=== PATIENT | female | born 1955 | race Caucasian/White ===

== ENCOUNTER 2017-11-30 23:50 | Inpatient (IN) | payer MEDICARE, OTHER ==
[~2017-11-30] VITALS: Ht 165.1 cm; Wt 77.0 kg
[~2017-11-30 23:50] MED LIST: ALBIPROI INH; ALBU90OI INH; AMIT25; AZIT500 PO; BENA20; BENA20 PO; BUDE6HFA INH; CELE200; ESCI10; ESTR2; ESTRADIOL PO; Estradiol1 MG PO; FURO20 PO; GABA400; GABA400 PO; HYDACE10B PO; HYDACE5; HYDACE5 PO; HYDCHL25; HYDGUAL120 PO; LEVFLO500 PO; METF500; METF500 PO; METH10; METH10 PO; METO50; METO50 PO; MIRT15 PO; MOXI400 PO; NIFE30ER PO; OMEP20ER; OXYACE5T PO; OXYC40ER; POTCHL20ER PO; PRED10 PO; PRED20 PO; PREG75; PROG100; PROG100 PO; PROM25 PO; Prednisone20 MG PO; Prilosec20 MG PO; RXOXYACE PO; RXSULTRIDS PO; SPIHYD; SULTRIDS PO; TIOT18 INH; TOBR.3OPSO OU; VENL75ER PO
[2017-12-01 00:22] LABS: BASOPHILS ABSOLUTE AUTO 0.05 K/mm3 (0.00-0.23); BASOPHILS PERCENT AUTO 1 % (0-2); EOSINOPHILS ABSOLUTE AUTO 0.22 K/mm3 (0.00-0.68); EOSINOPHILS PERCENT AUTO 2 % (0-6); Hematocrit 29.9 % (33.0-51.0); Hemoglobin 10.2 g/dL (11.5-16.0); IMMATURE GRAN ABSOLUTE AUTO 0.04 K/mm3 (0.00-0.10); IMMATURE GRAN PERCENT AUTO 0 % (0-1); LYMPHOCYTES ABSOLUTE AUTO 2.59 K/mm3 (0.84-5.20); LYMPHOCYTES PERCENT AUTO 24 % (21-46); MONOCYTES ABSOLUTE AUTO 0.82 K/mm3 (0.16-1.47); MONOCYTES PERCENT AUTO 8 % (4-13); Mean Corpuscular HGB 29.7 pg (26.0-34.0); Mean Corpuscular HGB Conc 34.1 g/dL (31.5-36.5); Mean Corpuscular Volume 87 fL (80-100); Mean Platelet Volume 8.6 fL (9.1-12.4); NEUTROPHILS ABSOLUTE AUTO 7.11 K/mm3 (1.96-9.15); NEUTROPHILS PERCENT AUTO 66 % (41-73); Platelet Count 448 K/mm3 (150-400); RDW Coefficient Variation 16.2 % (11.7-14.2); Red Blood Cell Count 3.44 M/mm3 (3.80-5.20); White Blood Cell Count 10.83 K/mm3 (4.00-11.30)
[2017-12-01] MEDS ORDERED: NIFE30ER PO (00:31)
[2017-12-01] MEDS ORDERED: Lyrica75 MG PO (00:32)
[2017-12-01 00:36] LABS: Alanine Aminotransfer (ALT/SGP 27 U/L (12-78); Albumin, Blood 2.7 g/dL (3.4-5.0); Albumin/Globulin Ratio 0.6 (0.8-1.8); Alk Phos 116 U/L (50-136); Anion Gap 9 mmol/L (6-16); Aspartate Aminotrans (AST/SGOT 40 U/L (12-37); Bilirubin, Total 0.3 mg/dL (0.1-1.0); Blood Urea Nitrogen 4 mg/dL (8-24); Bun/Creatinine Ratio 8.8 (12.0-20.0); CO2, Blood 25 mmol/L (21-32); Calcium, Blood 8.6 mg/dL (8.5-10.1); Chloride, Blood 98 mmol/L (98-108); Creatinine, Blood 0.45 mg/dL (0.40-1.00); Ethanol (Alcohol), Blood, Med <3 mg/dL; Globulin, Blood 4.5 g/dL (2.2-4.0); Glomerular Filtration Rate >60 (60-); Glucose, Blood 100 mg/dL (70-99); Sodium, Blood 132 mmol/L (136-145); Total Protein, Blood 7.2 g/dL (6.4-8.2); Troponin I <0.015 ng/mL (0.000-0.040)
[2017-12-01 03:21] LABS: Source, Urine Clean Catch
[2017-12-01 03:22] LABS: Bilirubin, Urine Neg (Neg); Blood, Urine Neg (Neg); Glucose Qualitative, Urine Neg (Neg); Ketones, Urine Neg (Neg); Leukocyte Esterase, Urine Neg (Neg); Nitrite, Urine Neg (Neg); Protein, Urine Neg (Neg); Urobilinogen, Urine NORM (Normal)
[2017-12-01 03:29] LABS: Appearance, Urine Clear (Clear); Color, Urine Yellow (P-Yellow)
[2017-12-01 06:14] LABS: PCO2 Arterial 43.5 mmHg (35-45); PO2 Arterial 61.4 mmHg (80-100); pH Blood Arterial 7.41 (7.35-7.45)
[2017-12-01 08:11] LABS: Influenza A Negative (NEGATIVE); Influenza B Negative (NEGATIVE)
[2017-12-01] MEDS ORDERED: LOTENSIN PO (16:56)
[2017-12-01] MEDS ORDERED: PREG75 PO (16:57)
[2017-12-01] MEDS ORDERED: COMBIVENT RESPIM4 GM INH (16:58)
[2017-12-01] MEDS ORDERED: BREO ELLIPTA 11 EACH INH (16:58)
[2017-12-01] MEDS ORDERED: ALBU90OI6 INH (16:58)
[2017-12-01] MEDS ORDERED: MAGNESIUM PO (16:59)
[2017-12-01] MEDS ORDERED: FERROUS SULFATE PO (16:59)
[2017-12-01] MEDS ORDERED: VITAMIN D32000 UNIT PO (17:00)
[2017-12-01 18:43] LABS: PCO2 Arterial 48.4 mmHg (35-45); PO2 Arterial 111 mmHg (80-100); pH Blood Arterial 7.36 (7.35-7.45)
[2017-12-02 05:24] LABS: BASOPHILS PERCENT AUTO 0 % (0-2); EOSINOPHILS PERCENT AUTO 0 % (0-6); Hematocrit 30.4 % (33.0-51.0); Hemoglobin 10.1 g/dL (11.5-16.0); IMMATURE GRAN ABSOLUTE AUTO 0.04 K/mm3 (0.00-0.10); IMMATURE GRAN PERCENT AUTO 0 % (0-1); LYMPHOCYTES ABSOLUTE AUTO 0.89 K/mm3 (0.84-5.20); LYMPHOCYTES PERCENT AUTO 9 % (21-46); MONOCYTES ABSOLUTE AUTO 0.36 K/mm3 (0.16-1.47); MONOCYTES PERCENT AUTO 3 % (4-13); Mean Corpuscular HGB 29.5 pg (26.0-34.0); Mean Corpuscular HGB Conc 33.2 g/dL (31.5-36.5); Mean Corpuscular Volume 89 fL (80-100); Mean Platelet Volume 9.2 fL (9.1-12.4); NEUTROPHILS ABSOLUTE AUTO 9.17 K/mm3 (1.96-9.15); NEUTROPHILS PERCENT AUTO 88 % (41-73); Platelet Count 443 K/mm3 (150-400); RDW Coefficient Variation 16.5 % (11.7-14.2); RDW Standard Deviation 53.7 fL (35.1-46.3); Red Blood Cell Count 3.42 M/mm3 (3.80-5.20); White Blood Cell Count 10.46 K/mm3 (4.00-11.30)
[2017-12-02 05:42] LABS: Alanine Aminotransfer (ALT/SGP 25 U/L (12-78); Albumin, Blood 2.7 g/dL (3.4-5.0); Albumin/Globulin Ratio 0.6 (0.8-1.8); Alk Phos 108 U/L (50-136); Anion Gap 5 mmol/L (6-16); Aspartate Aminotrans (AST/SGOT 30 U/L (12-37); Bilirubin, Total 0.3 mg/dL (0.1-1.0); Blood Urea Nitrogen 6 mg/dL (8-24); Bun/Creatinine Ratio 15.6 (12.0-20.0); CO2, Blood 28 mmol/L (21-32); Calcium, Blood 8.3 mg/dL (8.5-10.1); Chloride, Blood 101 mmol/L (98-108); Creatinine, Blood 0.39 mg/dL (0.40-1.00); Globulin, Blood 4.4 g/dL (2.2-4.0); Glomerular Filtration Rate >60 (60-); Glucose, Blood 151 mg/dL (70-99); Potassium, Blood 4.5 mmol/L (3.5-5.5); Sodium, Blood 134 mmol/L (136-145); Total Protein, Blood 7.1 g/dL (6.4-8.2)
[2017-12-02 11:40] LABS: U Amphetamine Screen Not Detected; U Barbituate Screen Not Detected; U Benzodiazapine Screen DETECTED; U Buprenorphine Screen Not Detected; U Cannabinoids Screen DETECTED; U Cocaine Screen Not Detected; U Methadone Screen Not Detected; U Methamphetamine Screen Not Detected; U Opiates Screen Not Detected; U Oxycodone Screen Not Detected; U Phencyclidine Screen Not Detected
[2017-12-02 11:58] LABS: U Propoxyphene Screen Not Detected
[2017-12-03 05:22] LABS: BASOPHILS PERCENT AUTO 0 % (0-2); EOSINOPHILS PERCENT AUTO 0 % (0-6); Hematocrit 32.5 % (33.0-51.0); Hemoglobin 10.7 g/dL (11.5-16.0); IMMATURE GRAN ABSOLUTE AUTO 0.03 K/mm3 (0.00-0.10); IMMATURE GRAN PERCENT AUTO 0 % (0-1); LYMPHOCYTES ABSOLUTE AUTO 0.67 K/mm3 (0.84-5.20); LYMPHOCYTES PERCENT AUTO 6 % (21-46); MONOCYTES ABSOLUTE AUTO 0.36 K/mm3 (0.16-1.47); MONOCYTES PERCENT AUTO 3 % (4-13); Mean Corpuscular HGB 29.5 pg (26.0-34.0); Mean Corpuscular HGB Conc 32.9 g/dL (31.5-36.5); Mean Corpuscular Volume 90 fL (80-100); Mean Platelet Volume 9.2 fL (9.1-12.4); NEUTROPHILS ABSOLUTE AUTO 10.75 K/mm3 (1.96-9.15); NEUTROPHILS PERCENT AUTO 91 % (41-73); Platelet Count 476 K/mm3 (150-400); RDW Coefficient Variation 16.6 % (11.7-14.2); RDW Standard Deviation 54.8 fL (35.1-46.3); Red Blood Cell Count 3.63 M/mm3 (3.80-5.20); White Blood Cell Count 11.81 K/mm3 (4.00-11.30)
[2017-12-03 05:44] LABS: Anion Gap 7 mmol/L (6-16); Blood Urea Nitrogen 7 mg/dL (8-24); Bun/Creatinine Ratio 19.4 (12.0-20.0); CO2, Blood 29 mmol/L (21-32); Calcium, Blood 9.1 mg/dL (8.5-10.1); Chloride, Blood 97 mmol/L (98-108); Creatinine, Blood 0.36 mg/dL (0.40-1.00); Glomerular Filtration Rate >60 (60-); Glucose, Blood 166 mg/dL (70-99); Sodium, Blood 133 mmol/L (136-145)
[2017-12-04 04:42] LABS: BASOPHILS ABSOLUTE AUTO 0.01 K/mm3 (0.00-0.23); BASOPHILS PERCENT AUTO 0 % (0-2); EOSINOPHILS ABSOLUTE AUTO 0.04 K/mm3 (0.00-0.68); EOSINOPHILS PERCENT AUTO 0 % (0-6); Hematocrit 32.5 % (33.0-51.0); Hemoglobin 10.9 g/dL (11.5-16.0); IMMATURE GRAN ABSOLUTE AUTO 0.07 K/mm3 (0.00-0.10); IMMATURE GRAN PERCENT AUTO 1 % (0-1); LYMPHOCYTES ABSOLUTE AUTO 2.82 K/mm3 (0.84-5.20); LYMPHOCYTES PERCENT AUTO 21 % (21-46); MONOCYTES ABSOLUTE AUTO 0.96 K/mm3 (0.16-1.47); MONOCYTES PERCENT AUTO 7 % (4-13); Mean Corpuscular HGB 29.6 pg (26.0-34.0); Mean Corpuscular HGB Conc 33.5 g/dL (31.5-36.5); Mean Corpuscular Volume 88 fL (80-100); NEUTROPHILS ABSOLUTE AUTO 9.54 K/mm3 (1.96-9.15); NEUTROPHILS PERCENT AUTO 71 % (41-73); Platelet Count 466 K/mm3 (150-400); RDW Coefficient Variation 16.6 % (11.7-14.2); RDW Standard Deviation 53.5 fL (35.1-46.3); Red Blood Cell Count 3.68 M/mm3 (3.80-5.20); White Blood Cell Count 13.44 K/mm3 (4.00-11.30)
[2017-12-04 04:54] LABS: PCO2 Arterial 47.5 mmHg (35-45); PO2 Arterial 90.9 mmHg (80-100); pH Blood Arterial 7.47 (7.35-7.45)
[2017-12-04 05:24] LABS: Anion Gap 6 mmol/L (6-16); Blood Urea Nitrogen 6 mg/dL (8-24); Bun/Creatinine Ratio 14.7 (12.0-20.0); CO2, Blood 31 mmol/L (21-32); Calcium, Blood 9.3 mg/dL (8.5-10.1); Chloride, Blood 97 mmol/L (98-108); Creatinine, Blood 0.41 mg/dL (0.40-1.00); Glomerular Filtration Rate >60 (60-); Glucose, Blood 106 mg/dL (70-99); Potassium, Blood 3.4 mmol/L (3.5-5.5); Sodium, Blood 134 mmol/L (136-145)
[2017-12-06] MEDS ORDERED: CEFU500T30 PO (12:56)
[2017-12-06] MEDS ORDERED: INSU100I6 SC (12:59)
[2017-12-06] MEDS ORDERED: PRED20 PO (13:00)
== END 2017-12-06 15:06 | DRG 884 ==
LOC: ER 23:50 → ERHOLD 12-01 06:44 → PCU 12-01 06:44 → MEDS 12-04 17:11 → PCU 12-04 17:18 → MEDS 12-05 16:14 → ENPENDDIS 12-06 10:00 → EDPENDDIS 12-06 10:00 → MEDS 12-06 15:06
PROVIDERS: Emergency Medicine; Internal Medicine
PROC: HZ2ZZZZ Detoxification Services for Substance Abuse Treatment (ICD-10-PCS; principal; 2017-12-01)
DX: F03.91 Unspecified dementia, unspecified severity, with behavioral disturbance (principal); J96.21 Acute and chronic respiratory failure with hypoxia; G92 Toxic encephalopathy; J96.22 Acute and chronic respiratory failure with hypercapnia; E87.1 Hypo-osmolality and hyponatremia; J44.1 Chronic obstructive pulmonary disease with (acute) exacerbation; F10.239 Alcohol dependence with withdrawal, unspecified; J44.0 Chronic obstructive pulmonary disease with (acute) lower respiratory infection; F05 Delirium due to known physiological condition; E11.40 Type 2 diabetes mellitus with diabetic neuropathy, unspecified; I27.20 Pulmonary hypertension, unspecified; E86.0 Dehydration; Z86.19 Personal history of other infectious and parasitic diseases; F17.210 Nicotine dependence, cigarettes, uncomplicated; Z79.4 Long term (current) use of insulin; E78.5 Hyperlipidemia, unspecified; B19.20 Unspecified viral hepatitis C without hepatic coma; J20.8 Acute bronchitis due to other specified organisms
CPT/HCPCS: 36415; 36600; 51798; 70450; 71046; 76705; 80048; 80053; 81003; 82140; 82803; 82947; 83605; 83690; 83880; 84145; 84484; 85025; 87070; 87077; 87205; 87804; 93005; 93010; 94640; 94760; 94762; 96374; 97162; 97530; 99285; G0480; G8978; G8979; J0697; J1650; J2060; J2405; J2930; J7030; P9612

== ENCOUNTER 2017-12-09 15:33 | Emergency (ER) | payer MEDICARE, OTHER ==
[~2017-12-09] VITALS: Ht 162.6 cm; Wt 77.1 kg
[~2017-12-09 15:33] MED LIST changes: +ALBU90OI6 INH; +BREO ELLIPTA 11 EACH INH; +CEFU500T30 PO; +COMBIVENT RESPIM4 GM INH; +FERROUS SULFATE PO; +INSU100I6 SC; +LOTENSIN PO; +Lyrica75 MG PO; +MAGNESIUM PO; +PREG75 PO; +VITAMIN D32000 UNIT PO
[2017-12-09 15:55] LABS: BASOPHILS ABSOLUTE AUTO 0.04 K/mm3 (0.00-0.23); BASOPHILS PERCENT AUTO 0 % (0-2); EOSINOPHILS ABSOLUTE AUTO 0.14 K/mm3 (0.00-0.68); EOSINOPHILS PERCENT AUTO 1 % (0-6); Hematocrit 33.8 % (33.0-51.0); Hemoglobin 11.2 g/dL (11.5-16.0); IMMATURE GRAN ABSOLUTE AUTO 0.09 K/mm3 (0.00-0.10); IMMATURE GRAN PERCENT AUTO 1 % (0-1); LYMPHOCYTES ABSOLUTE AUTO 1.64 K/mm3 (0.84-5.20); LYMPHOCYTES PERCENT AUTO 10 % (21-46); MONOCYTES ABSOLUTE AUTO 1.16 K/mm3 (0.16-1.47); MONOCYTES PERCENT AUTO 7 % (4-13); Mean Corpuscular HGB 30.1 pg (26.0-34.0); Mean Corpuscular HGB Conc 33.1 g/dL (31.5-36.5); Mean Platelet Volume 8.8 fL (9.1-12.4); NEUTROPHILS ABSOLUTE AUTO 13.51 K/mm3 (1.96-9.15); NEUTROPHILS PERCENT AUTO 82 % (41-73); Platelet Count 492 K/mm3 (150-400); RDW Coefficient Variation 17.1 % (11.7-14.2); RDW Standard Deviation 57.1 fL (35.1-46.3); Red Blood Cell Count 3.72 M/mm3 (3.80-5.20); White Blood Cell Count 16.58 K/mm3 (4.00-11.30)
[2017-12-09 15:58] LABS: Mean Corpuscular Volume 91 fL (80-100)
[2017-12-09 16:16] LABS: Alanine Aminotransfer (ALT/SGP 69 U/L (12-78); Albumin/Globulin Ratio 0.7 (0.8-1.8); Alk Phos 152 U/L (50-136); Anion Gap 7 mmol/L (6-16); Aspartate Aminotrans (AST/SGOT 76 U/L (12-37); Bilirubin, Total 0.5 mg/dL (0.1-1.0); Blood Urea Nitrogen 9 mg/dL (8-24); Bun/Creatinine Ratio 24.3 (12.0-20.0); CO2, Blood 29 mmol/L (21-32); Calcium, Blood 8.2 mg/dL (8.5-10.1); Chloride, Blood 102 mmol/L (98-108); Creatinine, Blood 0.37 mg/dL (0.40-1.00); Globulin, Blood 4.1 g/dL (2.2-4.0); Glomerular Filtration Rate >60 (60-); Glucose, Blood 109 mg/dL (70-99); Sodium, Blood 138 mmol/L (136-145); Total Protein, Blood 7.1 g/dL (6.4-8.2); Troponin I <0.015 ng/mL (0.000-0.040)
[2017-12-09 16:36] LABS: Ethanol (Alcohol), Blood, Med <3 mg/dL
[2017-12-09] MEDS ORDERED: Duoneb 2.5-0.5 M3 ML INH (17:35)
[2017-12-09] MEDS ORDERED: Albuterol2.5 MG/0.5 INH (17:35)
== END 2017-12-09 18:49 | disposition home or self-care (01) ==
LOC: ER 15:33
PROVIDERS: Physician Assistant
DX: R07.9 Chest pain, unspecified (principal); F03.90 Unspecified dementia, unspecified severity, without behavioral disturbance, psychotic disturbance, mood disturbance, and anxiety; E11.40 Type 2 diabetes mellitus with diabetic neuropathy, unspecified; E78.5 Hyperlipidemia, unspecified; J44.9 Chronic obstructive pulmonary disease, unspecified; I27.20 Pulmonary hypertension, unspecified; Z91.030 Bee allergy status; Z91.013 Allergy to seafood; Z88.1 Allergy status to other antibiotic agents; Z88.8 Allergy status to other drugs, medicaments and biological substances; Z79.899 Other long term (current) drug therapy; Z79.4 Long term (current) use of insulin; Z79.52 Long term (current) use of systemic steroids
CPT/HCPCS: 71046; 80053; 84484; 85025; 93005; 93010; 94640; 99284; G0480

== ENCOUNTER 2018-01-05 12:39 | Emergency (ER) | payer MEDICARE, OTHER ==
[~2018-01-05] VITALS: Ht 167.6 cm; Wt 61.7 kg
[~2018-01-05 12:39] MED LIST changes: +Albuterol2.5 MG/0.5 INH; +Duoneb 2.5-0.5 M3 ML INH
[2018-01-05 13:20] LABS: BASOPHILS ABSOLUTE AUTO 0.06 K/mm3 (0.00-0.23); BASOPHILS PERCENT AUTO 0 % (0-2); EOSINOPHILS ABSOLUTE AUTO 0.14 K/mm3 (0.00-0.68); EOSINOPHILS PERCENT AUTO 1 % (0-6); Hematocrit 34.6 % (33.0-51.0); Hemoglobin 11.3 g/dL (11.5-16.0); IMMATURE GRAN ABSOLUTE AUTO 0.07 K/mm3 (0.00-0.10); IMMATURE GRAN PERCENT AUTO 1 % (0-1); LYMPHOCYTES ABSOLUTE AUTO 1.79 K/mm3 (0.84-5.20); LYMPHOCYTES PERCENT AUTO 12 % (21-46); MONOCYTES ABSOLUTE AUTO 0.99 K/mm3 (0.16-1.47); MONOCYTES PERCENT AUTO 7 % (4-13); Mean Corpuscular HGB 30.1 pg (26.0-34.0); Mean Corpuscular HGB Conc 32.7 g/dL (31.5-36.5); Mean Corpuscular Volume 92 fL (80-100); Mean Platelet Volume 9.5 fL (9.1-12.4); NEUTROPHILS ABSOLUTE AUTO 11.48 K/mm3 (1.96-9.15); NEUTROPHILS PERCENT AUTO 79 % (41-73); Platelet Count 574 K/mm3 (150-400); RDW Coefficient Variation 14.3 % (11.7-14.2); RDW Standard Deviation 48.3 fL (35.1-46.3); Red Blood Cell Count 3.75 M/mm3 (3.80-5.20); White Blood Cell Count 14.53 K/mm3 (4.00-11.30)
[2018-01-05 13:36] LABS: Alanine Aminotransfer (ALT/SGP 57 U/L (12-78); Albumin, Blood 2.9 g/dL (3.4-5.0); Albumin/Globulin Ratio 0.6 (0.8-1.8); Alk Phos 228 U/L (50-136); Anion Gap 10 mmol/L (6-16); Aspartate Aminotrans (AST/SGOT 64 U/L (12-37); Bilirubin, Total 0.3 mg/dL (0.1-1.0); Blood Urea Nitrogen 10 mg/dL (8-24); Bun/Creatinine Ratio 24.2 (12.0-20.0); CO2, Blood 26 mmol/L (21-32); Calcium, Blood 9.1 mg/dL (8.5-10.1); Chloride, Blood 96 mmol/L (98-108); Creatinine, Blood 0.41 mg/dL (0.40-1.00); Globulin, Blood 4.9 g/dL (2.2-4.0); Glomerular Filtration Rate >60 (60-); Glucose, Blood 91 mg/dL (70-99); Sodium, Blood 132 mmol/L (136-145); Total Protein, Blood 7.8 g/dL (6.4-8.2); Troponin I <0.015 ng/mL (0.000-0.040)
[2018-01-05] MEDS ORDERED: ACET325 PO (13:43)
[2018-01-05] MEDS ORDERED: POTCHL20ER PO (13:45)
[2018-01-05] MEDS ORDERED: FOLI1 PO (13:46)
[2018-01-05] MEDS ORDERED: Hair, Skin & N1 EACH PO (13:47)
[2018-01-05] MEDS ORDERED: Vitamin B Comple1 EA PO (13:47)
[2018-01-05] MEDS ORDERED: MAGCHL64ER PO (13:47)
[2018-01-05 14:35] LABS: Source, Urine Voided
[2018-01-05 14:51] LABS: Appearance, Urine Clear (Clear); Bilirubin, Urine Neg (Neg); Blood, Urine Neg (Neg); Color, Urine Yellow (P-Yellow); Glucose Qualitative, Urine Neg (Neg); Ketones, Urine Neg (Neg); Leukocyte Esterase, Urine 2+ (Neg); Nitrite, Urine Neg (Neg); Protein, Urine Neg (Neg); Urobilinogen, Urine NORM (Normal)
[2018-01-05 15:00] LABS: Amorphous Light (0-Heavy); Bacteria Mod /hpf; Red Blood Cells, Urine Not Seen /hpf (0-2); Squamous Epithelial Cells Few /hpf (Few)
[2018-01-05] MEDS ORDERED: CEPH500 PO (15:27)
[2018-01-05] MEDS ORDERED: Zofran Odt4 MG PO (15:27)
== END 2018-01-05 16:40 | disposition home or self-care (01) ==
LOC: ER 12:39
PROVIDERS: Emergency Medicine
DX: K52.9 Noninfective gastroenteritis and colitis, unspecified (principal); N30.90 Cystitis, unspecified without hematuria; E11.9 Type 2 diabetes mellitus without complications; I10 Essential (primary) hypertension; K21.9 Gastro-esophageal reflux disease without esophagitis; M54.9 Dorsalgia, unspecified; G89.29 Other chronic pain; J44.9 Chronic obstructive pulmonary disease, unspecified; Z88.1 Allergy status to other antibiotic agents; Z91.030 Bee allergy status; Z79.4 Long term (current) use of insulin; Z79.899 Other long term (current) drug therapy
CPT/HCPCS: 36415; 74177; 80053; 81001; 83605; 83690; 84484; 85025; 87077; 87086; 87186; 93005; 93010; 96361; 96374; 96375; 99284; J0696; J2270; J2405; J7030; P9612; Q9967

== ENCOUNTER 2018-01-08 19:30 | Emergency (ER) | payer MEDICARE, OTHER ==
[~2018-01-08] VITALS: Ht 167.6 cm; Wt 74.8 kg
[~2018-01-08 19:30] MED LIST changes: +ACET325 PO; +CEPH500 PO; +FOLI1 PO; +Hair, Skin & N1 EACH PO; +MAGCHL64ER PO; +Vitamin B Comple1 EA PO; +Zofran Odt4 MG PO
[2018-01-08 19:56] LABS: BASOPHILS ABSOLUTE AUTO 0.06 K/mm3 (0.00-0.23); BASOPHILS PERCENT AUTO 0 % (0-2); EOSINOPHILS ABSOLUTE AUTO 0.25 K/mm3 (0.00-0.68); EOSINOPHILS PERCENT AUTO 2 % (0-6); Hematocrit 35.3 % (33.0-51.0); Hemoglobin 11.7 g/dL (11.5-16.0); IMMATURE GRAN ABSOLUTE AUTO 0.07 K/mm3 (0.00-0.10); IMMATURE GRAN PERCENT AUTO 1 % (0-1); LYMPHOCYTES ABSOLUTE AUTO 2.12 K/mm3 (0.84-5.20); LYMPHOCYTES PERCENT AUTO 14 % (21-46); MONOCYTES ABSOLUTE AUTO 1.06 K/mm3 (0.16-1.47); MONOCYTES PERCENT AUTO 7 % (4-13); Mean Corpuscular HGB 30.2 pg (26.0-34.0); Mean Corpuscular HGB Conc 33.1 g/dL (31.5-36.5); Mean Corpuscular Volume 91 fL (80-100); Mean Platelet Volume 9.1 fL (9.1-12.4); NEUTROPHILS ABSOLUTE AUTO 11.61 K/mm3 (1.96-9.15); NEUTROPHILS PERCENT AUTO 77 % (41-73); Platelet Count 707 K/mm3 (150-400); RDW Coefficient Variation 14.6 % (11.7-14.2); Red Blood Cell Count 3.87 M/mm3 (3.80-5.20); White Blood Cell Count 15.17 K/mm3 (4.00-11.30)
[2018-01-08 20:17] LABS: Alanine Aminotransfer (ALT/SGP 52 U/L (12-78); Albumin, Blood 2.9 g/dL (3.4-5.0); Albumin/Globulin Ratio 0.6 (0.8-1.8); Alk Phos 214 U/L (50-136); Anion Gap 7 mmol/L (6-16); Aspartate Aminotrans (AST/SGOT 56 U/L (12-37); Bilirubin, Total 0.4 mg/dL (0.1-1.0); Blood Urea Nitrogen 9 mg/dL (8-24); Bun/Creatinine Ratio 22.3 (12.0-20.0); CO2, Blood 28 mmol/L (21-32); Calcium, Blood 9.2 mg/dL (8.5-10.1); Chloride, Blood 99 mmol/L (98-108); Globulin, Blood 4.9 g/dL (2.2-4.0); Glomerular Filtration Rate >60 (60-); Glucose, Blood 106 mg/dL (70-99); Potassium, Blood 3.8 mmol/L (3.5-5.5); Sodium, Blood 134 mmol/L (136-145); Total Protein, Blood 7.8 g/dL (6.4-8.2)
[2018-01-08 20:50] LABS: Source, Urine Catheter
[2018-01-08 20:54] LABS: Bilirubin, Urine Neg (Neg); Blood, Urine Neg (Neg); Glucose Qualitative, Urine Neg (Neg); Ketones, Urine Neg (Neg); Leukocyte Esterase, Urine 2+ (Neg); Nitrite, Urine Neg (Neg); Protein, Urine Neg (Neg); Urobilinogen, Urine NORM (Normal)
[2018-01-08 20:59] LABS: Appearance, Urine Clear (Clear); Color, Urine Yellow (P-Yellow)
[2018-01-08] MEDS ORDERED: BREO ELLIPTA 11 EACH INH (20:59)
[2018-01-08] MEDS ORDERED: MAGCHL64ER PO (21:00)
[2018-01-08] MEDS ORDERED: MAGOXI400 PO (21:00)
[2018-01-08 21:01] LABS: Bacteria Rare /hpf; Red Blood Cells, Urine Not Seen /hpf (0-2); Squamous Epithelial Cells Few /hpf (Few)
[2018-01-08] MEDS ORDERED: CIPR500 PO (21:01)
[2018-01-08] MEDS ORDERED: CEPH500 PO (22:00)
== END 2018-01-08 22:35 | disposition home or self-care (01) ==
LOC: ER 19:30
PROVIDERS: Emergency Medicine
DX: R10.13 Epigastric pain (principal); N39.0 Urinary tract infection, site not specified; K21.9 Gastro-esophageal reflux disease without esophagitis; F03.90 Unspecified dementia, unspecified severity, without behavioral disturbance, psychotic disturbance, mood disturbance, and anxiety; J44.9 Chronic obstructive pulmonary disease, unspecified; F17.210 Nicotine dependence, cigarettes, uncomplicated; I10 Essential (primary) hypertension; E11.9 Type 2 diabetes mellitus without complications; Z79.4 Long term (current) use of insulin; Z79.899 Other long term (current) drug therapy; Z91.013 Allergy to seafood; Z88.8 Allergy status to other drugs, medicaments and biological substances; Z91.030 Bee allergy status; Z88.1 Allergy status to other antibiotic agents; Z79.2 Long term (current) use of antibiotics
CPT/HCPCS: 74177; 80053; 81001; 83690; 85025; 87086; 93005; 93010; 96361; 96365; 96375; 99284; J0696; J2270; J7030; Q9967

== ENCOUNTER → 2018-01-25 | Outpatient (CLI) | payer MEDICARE, OTHER ==
[~2018-01-25] MED LIST changes: +CIPR500 PO; +MAGOXI400 PO
[2018-01-25 07:20] LABS: Source, Urine Catheter
[2018-01-25 08:48] LABS: Bilirubin, Urine Neg (Neg); Blood, Urine Neg (Neg); Glucose Qualitative, Urine Neg (Neg); Ketones, Urine Neg (Neg); Leukocyte Esterase, Urine 1+ (Neg); Nitrite, Urine Neg (Neg); Protein, Urine Neg (Neg); Urobilinogen, Urine NORM (Normal)
[2018-01-25 08:50] LABS: Appearance, Urine Hazy (Clear); Color, Urine Yellow (P-Yellow)
[2018-01-25 08:57] LABS: Bacteria Rare /hpf; Red Blood Cells, Urine Not Seen /hpf (0-2); Squamous Epithelial Cells Rare /hpf (Few); White Blood Cells, Urine 0-2 /hpf (0-5)
== END ==
LOC: LAB RH 07:19 → EDSTATUS 15:25
PROVIDERS: Physician Assistant
DX: Z79.01 Long term (current) use of anticoagulants (principal); Z51.81 Encounter for therapeutic drug level monitoring
CPT/HCPCS: 81001; 87086

== ENCOUNTER 2018-01-27 17:54 | Emergency (ER) | payer MEDICARE, OTHER ==
[~2018-01-27] VITALS: Ht 167.6 cm; Wt 59.0 kg
[2018-01-27 18:25] LABS: Source, Urine Catheter
[2018-01-27 18:26] LABS: BASOPHILS ABSOLUTE AUTO 0.06 K/mm3 (0.00-0.23); BASOPHILS PERCENT AUTO 1 % (0-2); EOSINOPHILS ABSOLUTE AUTO 0.42 K/mm3 (0.00-0.68); EOSINOPHILS PERCENT AUTO 4 % (0-6); Hematocrit 31.2 % (33.0-51.0); Hemoglobin 10.2 g/dL (11.5-16.0); IMMATURE GRAN ABSOLUTE AUTO 0.05 K/mm3 (0.00-0.10); IMMATURE GRAN PERCENT AUTO 1 % (0-1); LYMPHOCYTES ABSOLUTE AUTO 2.13 K/mm3 (0.84-5.20); LYMPHOCYTES PERCENT AUTO 21 % (21-46); MONOCYTES PERCENT AUTO 9 % (4-13); Mean Corpuscular HGB 30.7 pg (26.0-34.0); Mean Corpuscular HGB Conc 32.7 g/dL (31.5-36.5); Mean Corpuscular Volume 94 fL (80-100); Mean Platelet Volume 9.4 fL (9.1-12.4); NEUTROPHILS ABSOLUTE AUTO 6.75 K/mm3 (1.96-9.15); NEUTROPHILS PERCENT AUTO 65 % (41-73); Platelet Count 642 K/mm3 (150-400); RDW Standard Deviation 51.7 fL (35.1-46.3); Red Blood Cell Count 3.32 M/mm3 (3.80-5.20); White Blood Cell Count 10.31 K/mm3 (4.00-11.30)
[2018-01-27 18:36] LABS: Appearance, Urine Clear (Clear); Bilirubin, Urine Neg (Neg); Blood, Urine 1+ (Neg); Color, Urine Yellow (P-Yellow); Glucose Qualitative, Urine Neg (Neg); Ketones, Urine Neg (Neg); Leukocyte Esterase, Urine 1+ (Neg); Nitrite, Urine Neg (Neg); Protein, Urine Neg (Neg); Urobilinogen, Urine NORM (Normal); pH, Urine 6.5 (5.0-8.0)
[2018-01-27 18:43] LABS: Bacteria Few /hpf; Red Blood Cells, Urine 0-2 /hpf (0-2); Squamous Epithelial Cells Few /hpf (Few)
[2018-01-27 18:44] LABS: Alanine Aminotransfer (ALT/SGP 31 U/L (12-78); Albumin, Blood 3.2 g/dL (3.4-5.0); Albumin/Globulin Ratio 0.7 (0.8-1.8); Alk Phos 158 U/L (50-136); Anion Gap 9 mmol/L (6-16); Aspartate Aminotrans (AST/SGOT 46 U/L (12-37); Bilirubin, Total 0.3 mg/dL (0.1-1.0); Blood Urea Nitrogen 13 mg/dL (8-24); Bun/Creatinine Ratio 22.6 (12.0-20.0); CO2, Blood 25 mmol/L (21-32); Calcium, Blood 9.5 mg/dL (8.5-10.1); Chloride, Blood 101 mmol/L (98-108); Creatinine, Blood 0.57 mg/dL (0.40-1.00); Globulin, Blood 4.9 g/dL (2.2-4.0); Glomerular Filtration Rate >60 (60-); Glucose, Blood 96 mg/dL (70-99); Potassium, Blood 4.1 mmol/L (3.5-5.5); Sodium, Blood 135 mmol/L (136-145); Total Protein, Blood 8.1 g/dL (6.4-8.2)
== END 2018-01-27 19:31 | disposition home or self-care (01) ==
LOC: ER 17:54
PROVIDERS: Emergency Medicine
DX: S60.221A Contusion of right hand, initial encounter (principal); F03.90 Unspecified dementia, unspecified severity, without behavioral disturbance, psychotic disturbance, mood disturbance, and anxiety; E11.40 Type 2 diabetes mellitus with diabetic neuropathy, unspecified; E78.5 Hyperlipidemia, unspecified; J44.9 Chronic obstructive pulmonary disease, unspecified; F17.210 Nicotine dependence, cigarettes, uncomplicated; W19.XXXA Unspecified fall, initial encounter; Z79.899 Other long term (current) drug therapy
CPT/HCPCS: 36415; 70450; 71046; 73130; 80053; 81001; 82140; 85025; 87086; 99284; P9612

== ENCOUNTER 2018-01-31 14:34 | Emergency (ER) | payer MEDICARE, OTHER ==
[~2018-01-31] VITALS: Ht 167.6 cm; Wt 72.6 kg
[2018-01-31 15:15] LABS: Source, Urine Catheter
[2018-01-31 15:18] LABS: BASOPHILS ABSOLUTE AUTO 0.07 K/mm3 (0.00-0.23); BASOPHILS PERCENT AUTO 1 % (0-2); EOSINOPHILS ABSOLUTE AUTO 0.58 K/mm3 (0.00-0.68); EOSINOPHILS PERCENT AUTO 6 % (0-6); Hematocrit 32.9 % (33.0-51.0); Hemoglobin 10.3 g/dL (11.5-16.0); IMMATURE GRAN ABSOLUTE AUTO 0.03 K/mm3 (0.00-0.10); IMMATURE GRAN PERCENT AUTO 0 % (0-1); LYMPHOCYTES ABSOLUTE AUTO 2.09 K/mm3 (0.84-5.20); LYMPHOCYTES PERCENT AUTO 20 % (21-46); MONOCYTES ABSOLUTE AUTO 0.82 K/mm3 (0.16-1.47); MONOCYTES PERCENT AUTO 8 % (4-13); Mean Corpuscular HGB 30.1 pg (26.0-34.0); Mean Corpuscular HGB Conc 31.3 g/dL (31.5-36.5); Mean Corpuscular Volume 96 fL (80-100); Mean Platelet Volume 9.9 fL (9.1-12.4); NEUTROPHILS ABSOLUTE AUTO 6.85 K/mm3 (1.96-9.15); NEUTROPHILS PERCENT AUTO 66 % (41-73); Platelet Count 606 K/mm3 (150-400); RDW Coefficient Variation 14.8 % (11.7-14.2); RDW Standard Deviation 51.7 fL (35.1-46.3); Red Blood Cell Count 3.42 M/mm3 (3.80-5.20); White Blood Cell Count 10.44 K/mm3 (4.00-11.30)
[2018-01-31 15:18] LABS: Blood, Urine 1+ (Neg); Glucose Qualitative, Urine Neg (Neg); Ketones, Urine Neg (Neg); Leukocyte Esterase, Urine 3+ (Neg); Nitrite, Urine Neg (Neg); Protein, Urine 1+ (Neg); Specific Gravity, Urine 1.015 (1.003-1.022); Urobilinogen, Urine 1+ (Normal)
[2018-01-31 15:34] LABS: Alanine Aminotransfer (ALT/SGP 30 U/L (12-78); Albumin, Blood 3.3 g/dL (3.4-5.0); Albumin/Globulin Ratio 0.7 (0.8-1.8); Alk Phos 149 U/L (50-136); Anion Gap 7 mmol/L (6-16); Aspartate Aminotrans (AST/SGOT 37 U/L (12-37); Bilirubin, Total 0.2 mg/dL (0.1-1.0); Blood Urea Nitrogen 15 mg/dL (8-24); Bun/Creatinine Ratio 25.6 (12.0-20.0); CO2, Blood 25 mmol/L (21-32); Calcium, Blood 9.3 mg/dL (8.5-10.1); Chloride, Blood 105 mmol/L (98-108); Creatinine, Blood 0.59 mg/dL (0.40-1.00); Globulin, Blood 4.8 g/dL (2.2-4.0); Glomerular Filtration Rate >60 (60-); Glucose, Blood 98 mg/dL (70-99); Potassium, Blood 4.6 mmol/L (3.5-5.5); Sodium, Blood 137 mmol/L (136-145); Total Protein, Blood 8.1 g/dL (6.4-8.2)
[2018-01-31 15:39] LABS: Bilirubin, Urine 1+ (Neg)
[2018-01-31 15:48] LABS: Appearance, Urine Clear (Clear); Color, Urine Yellow (P-Yellow)
[2018-01-31 15:49] LABS: Bacteria Few /hpf; Squamous Epithelial Cells Few /hpf (Few); White Blood Cells, Urine 25-50 /hpf (0-5)
[2018-01-31] MEDS ORDERED: CEPH500 PO (16:22)
== END 2018-01-31 17:31 | disposition home or self-care (01) ==
LOC: ER 14:34
PROVIDERS: Physician Assistant
DX: N39.0 Urinary tract infection, site not specified (principal); F03.90 Unspecified dementia, unspecified severity, without behavioral disturbance, psychotic disturbance, mood disturbance, and anxiety; E11.9 Type 2 diabetes mellitus without complications; E78.5 Hyperlipidemia, unspecified; J44.9 Chronic obstructive pulmonary disease, unspecified; I27.20 Pulmonary hypertension, unspecified; F17.210 Nicotine dependence, cigarettes, uncomplicated; N17.9 Acute kidney failure, unspecified; Z91.030 Bee allergy status; Z91.013 Allergy to seafood; Z88.1 Allergy status to other antibiotic agents; Z88.8 Allergy status to other drugs, medicaments and biological substances; Z79.899 Other long term (current) drug therapy; Z79.2 Long term (current) use of antibiotics; Z98.890 Other specified postprocedural states
CPT/HCPCS: 36415; 80053; 81001; 85025; 87077; 87086; 87186; 93005; 93010; 96374; 99283; J0696; P9612

== ENCOUNTER → 2018-07-01 | Outpatient (CLI) | payer MEDICARE, OTHER ==
[2018-07-01 19:13] LABS: Source, Urine Clean Catch
[2018-07-01 19:31] LABS: Appearance, Urine Clear (Clear); Bilirubin, Urine Neg (Neg); Blood, Urine Neg (Neg); Color, Urine Yellow (P-Yellow); Glucose Qualitative, Urine Neg (Neg); Ketones, Urine Neg (Neg); Leukocyte Esterase, Urine Neg (Neg); Nitrite, Urine Neg (Neg); Protein, Urine Neg (Neg); Urobilinogen, Urine NORM (Normal)
[2018-07-01 19:43] LABS: Specific Gravity, Urine 1.005 (1.003-1.022)
== END | disposition home or self-care (01) ==
LOC: LAB 16:15 → LAB SHORT 16:15
PROVIDERS: Physician Assistant
DX: N39.0 Urinary tract infection, site not specified (principal)
CPT/HCPCS: 81003

== ENCOUNTER → 2018-10-31 | Outpatient (CLI) | payer MEDICARE, OTHER ==
[2018-10-31 19:11] LABS: Source, Urine Clean Catch
[2018-10-31 19:18] LABS: Bilirubin, Urine Neg (Neg); Blood, Urine Neg (Neg); Glucose Qualitative, Urine 4+ (Neg); Ketones, Urine Neg (Neg); Leukocyte Esterase, Urine 1+ (Neg); Nitrite, Urine Neg (Neg); Protein, Urine Neg (Neg); Urobilinogen, Urine NORM (Normal)
[2018-10-31 19:26] LABS: Appearance, Urine Hazy (Clear); Color, Urine Yellow (P-Yellow)
[2018-10-31 19:27] LABS: Bacteria Many /hpf; Red Blood Cells, Urine Not Seen /hpf (0-2); Squamous Epithelial Cells Mod /hpf (Few)
== END ==
LOC: LAB SHORT 14:30 → LAB 14:30
PROVIDERS: Nurse Practitioner Family
DX: N39.0 Urinary tract infection, site not specified (principal)
CPT/HCPCS: 81001; 87086

== ENCOUNTER → 2018-11-04 | Outpatient (CLI) | payer MEDICARE, OTHER ==
[2018-11-04 19:25] LABS: Source, Urine Clean Catch
[2018-11-04 19:38] LABS: Bilirubin, Urine Neg (Neg); Blood, Urine Neg (Neg); Glucose Qualitative, Urine 4+ (Neg); Ketones, Urine Neg (Neg); Leukocyte Esterase, Urine 2+ (Neg); Nitrite, Urine Neg (Neg); Protein, Urine Neg (Neg); Specific Gravity, Urine 1.005 (1.003-1.022); Urobilinogen, Urine NORM (Normal)
[2018-11-04 19:46] LABS: Appearance, Urine Hazy (Clear); Color, Urine Yellow (P-Yellow)
[2018-11-04 19:48] LABS: Bacteria Few /hpf; Red Blood Cells, Urine Not Seen /hpf (0-2); Squamous Epithelial Cells Few /hpf (Few)
== END ==
LOC: LAB SHORT 15:00 → LAB 15:00
PROVIDERS: Nurse Practitioner Family
DX: N39.0 Urinary tract infection, site not specified (principal)
CPT/HCPCS: 81001; 87086

== ENCOUNTER → 2019-07-22 | Outpatient (CLI) | payer MEDICARE, OTHER ==
[~2019-07-22] MED LIST changes: +ALBU3IS INH; +ASCO500 PO; +BASAGLAR K100 UNIT/1 SC; +BISA10S PR; +DOCU100 PO; +FERSU300 PO; +HIGH POTENCY P1 EACH PO; +HUMALOG KW200 UNIT/1 SC; +LIDO700A20 TOP; +LOSA25 PO; +MELATONIN5 M1 PO; +NIFE60ER PO; +ONDA8 MM; +PREG150 PO; +Pedi-Dri 100,0060 GM TOP; +QUET100 PO; +Seroquel Xr50 MG PO; +TRAM50 PO; +TRAZ50 PO; +VANCOCIN HCL125 MG PO
[2019-07-23 16:25] LABS: Source, Urine Clean Catch
[2019-07-23 17:27] LABS: Bilirubin, Urine Neg (Neg); Blood, Urine Neg (Neg); Glucose Qualitative, Urine Neg (Neg); Ketones, Urine Neg (Neg); Leukocyte Esterase, Urine Neg (Neg); Nitrite, Urine Neg (Neg); Protein, Urine 2+ (Neg); Specific Gravity, Urine 1.015 (1.003-1.022); Urobilinogen, Urine NORM (Normal)
[2019-07-23 17:28] LABS: Appearance, Urine Clear (Clear); Color, Urine Yellow (P-Yellow)
[2019-07-23 17:29] LABS: Bacteria Few /hpf; Red Blood Cells, Urine Not Seen /hpf (0-2); Squamous Epithelial Cells Rare /hpf (Few); White Blood Cells, Urine 0-2 /hpf (0-5)
[2019-07-23 17:30] LABS: Mucus Light (0-Heavy)
== END | disposition home or self-care (01) ==
LOC: LAB 11:50 → LAB SHORT 11:50
PROVIDERS: Family Medicine
DX: R10.9 Unspecified abdominal pain (principal)
CPT/HCPCS: 81001

== ENCOUNTER → 2019-08-11 | Outpatient (CLI) | payer MEDICARE, OTHER ==
[2019-08-11 17:21] LABS: Source, Urine Clean Catch
[2019-08-11 17:50] LABS: Bilirubin, Urine Neg (Neg); Blood, Urine Neg (Neg); Glucose Qualitative, Urine Neg (Neg); Ketones, Urine Neg (Neg); Leukocyte Esterase, Urine Neg (Neg); Nitrite, Urine Neg (Neg); Protein, Urine 1+ (Neg); Specific Gravity, Urine 1.015 (1.003-1.022); Urobilinogen, Urine NORM (Normal)
[2019-08-11 17:57] LABS: Appearance, Urine Clear (Clear); Color, Urine Yellow (P-Yellow)
== END | disposition home or self-care (01) ==
LOC: LAB SHORT 13:00 → LAB 13:00
PROVIDERS: Family Medicine
DX: N39.0 Urinary tract infection, site not specified (principal); R10.9 Unspecified abdominal pain
CPT/HCPCS: 81003

== ENCOUNTER 2020-03-19 11:38 | Inpatient (IN) | payer MEDICARE, OTHER ==
[~2020-03-19] VITALS: Ht 170.2 cm; Wt 75.5 kg
[2020-03-19 11:53] LABS: Base Excess Venous 2.4 mmol/L; Bicarbonate Venous 24.2 mmol/L (24.0-30.0); PO2 Venous 70.3 mmHg (38-42)
[2020-03-19 11:55] LABS: pH Blood Venous 7.19 (7.34-7.37)
[2020-03-19] MEDS ORDERED: BREO ELLIPTA 11 EACH INH (12:06)
[2020-03-19] MEDS ORDERED: Acetaminophen-1 EAC1 PO (12:06)
[2020-03-19] MEDS ORDERED: COMBIVENT RESPIM4 GM INH (12:07)
[2020-03-19] MEDS ORDERED: CYCLOBENZAPRINE5 MG PO (12:07)
[2020-03-19] MEDS ORDERED: Voltaren100 GM TOP (12:08)
[2020-03-19] MEDS ORDERED: DOCU100 PO (12:08)
[2020-03-19] MEDS ORDERED: FOLI1 PO (12:08)
[2020-03-19] MEDS ORDERED: BASAGLAR K100 UNIT/1 SC (12:08)
[2020-03-19] MEDS ORDERED: FERSU300 PO (12:08)
[2020-03-19] MEDS ORDERED: LOSA25 PO (12:09)
[2020-03-19] MEDS ORDERED: METO50ER PO (12:09)
[2020-03-19] MEDS ORDERED: TRAM50 PO (12:10)
[2020-03-19] MEDS ORDERED: SPIR25 PO (12:10)
[2020-03-19] MEDS ORDERED: PREG150 PO (12:10)
[2020-03-19] MEDS ORDERED: QUET100 PO (12:10)
[2020-03-19] MEDS ORDERED: Daily Multiple1 EACH PO (12:10)
[2020-03-19] MEDS ORDERED: Vitamin D2000 UNIT PO (12:11)
[2020-03-19] MEDS ORDERED: ASCO500 PO (12:11)
[2020-03-19] MEDS ORDERED: VENL75ER PO (12:11)
[2020-03-19 12:12] LABS: BASOPHILS ABSOLUTE AUTO 0.11 K/mm3 (0.00-0.23); BASOPHILS PERCENT AUTO 0 % (0-2); EOSINOPHILS ABSOLUTE AUTO 0.01 K/mm3 (0.00-0.68); EOSINOPHILS PERCENT AUTO 0 % (0-6); Hematocrit 46.9 % (33.0-51.0); Hemoglobin 14.1 g/dL (11.5-16.0); IMMATURE GRAN ABSOLUTE AUTO 0.18 K/mm3 (0.00-0.10); IMMATURE GRAN PERCENT AUTO 1 % (0-1); LYMPHOCYTES ABSOLUTE AUTO 1.19 K/mm3 (0.84-5.20); LYMPHOCYTES PERCENT AUTO 5 % (21-46); MONOCYTES ABSOLUTE AUTO 2.29 K/mm3 (0.16-1.47); MONOCYTES PERCENT AUTO 9 % (4-13); Mean Corpuscular HGB 31.3 pg (26.0-34.0); Mean Corpuscular HGB Conc 30.1 g/dL (31.5-36.5); Mean Corpuscular Volume 104 fL (80-100); Mean Platelet Volume 9.9 fL (9.1-12.4); NEUTROPHILS ABSOLUTE AUTO 22.37 K/mm3 (1.96-9.15); NEUTROPHILS PERCENT AUTO 86 % (41-73); Platelet Count 294 K/mm3 (150-400); RDW Coefficient Variation 12.3 % (11.7-14.2); RDW Standard Deviation 47.6 fL (35.1-46.3); White Blood Cell Count 26.15 K/mm3 (4.00-11.30)
[2020-03-19 12:33] LABS: Base Excess Venous 3.8 mmol/L; Bicarbonate Venous 24.6 mmol/L (24.0-30.0); PCO2 Venous 94.3 mmHg (38-42); PO2 Venous 47.2 mmHg (38-42); pH Blood Venous 7.15 (7.34-7.37)
[2020-03-19 12:40] LABS: Troponin I <0.015 ng/mL (0.000-0.040)
[2020-03-19 12:46] LABS: Alanine Aminotransfer (ALT/SGP 36 U/L (12-78); Albumin, Blood 3.2 g/dL (3.4-5.0); Albumin/Globulin Ratio 0.6 (0.8-1.8); Alk Phos 109 U/L (50-136); Anion Gap 4 mmol/L (6-16); Aspartate Aminotrans (AST/SGOT 43 U/L (12-37); Bilirubin, Total 0.3 mg/dL (0.1-1.0); Blood Urea Nitrogen 21 mg/dL (8-24); Bun/Creatinine Ratio 12.1 (12.0-20.0); CO2, Blood 31 mmol/L (21-32); Calcium, Blood 8.8 mg/dL (8.5-10.1); Chloride, Blood 98 mmol/L (98-108); Creatinine, Blood 1.74 mg/dL (0.40-1.00); Globulin, Blood 5.7 g/dL (2.2-4.0); Glomerular Filtration Rate 31 (60-); Glucose, Blood 269 mg/dL (70-99); Potassium, Blood 6.1 mmol/L (3.5-5.5); Sodium, Blood 133 mmol/L (136-145); Total Protein, Blood 8.9 g/dL (6.4-8.2)
[2020-03-19 12:59] LABS: Source, Urine Catheter
[2020-03-19 13:04] LABS: Bilirubin, Urine Neg (Neg); Blood, Urine 2+ (Neg); Glucose Qualitative, Urine 3+ (Neg); Ketones, Urine Neg (Neg); Leukocyte Esterase, Urine Neg (Neg); Nitrite, Urine Neg (Neg); Protein, Urine 3+ (Neg); Urobilinogen, Urine NORM (Normal)
[2020-03-19 13:10] LABS: Appearance, Urine Clear (Clear); Color, Urine Yellow (P-Yellow)
[2020-03-19 13:13] LABS: Amorphous Light (0-Heavy); Bacteria Not Seen /hpf; Red Blood Cells, Urine 0-2 /hpf (0-2); Squamous Epithelial Cells Not Seen /hpf (Few); Transitional Epithelial Cells Few /hpf (0-Rare); White Blood Cells, Urine Not Seen /hpf (0-5)
[2020-03-19 13:20] LABS: Calcium Oxalate Crystals Rare /hpf; Granular Casts 0-2 /lpf (0)
[2020-03-19 14:12] LABS: PO2 Arterial 64.8 mmHg (80-100)
[2020-03-19 14:13] LABS: PCO2 Arterial 77.2 mmHg (35-45)
[2020-03-19 14:51] LABS: Adenovirus Not Detected (NOT DETECT); Bordetella pertussis Not Detected (NOT DETECT); Chlamydophila pneumoniae Not Detected (NOT DETECT); Coronavirus 229E Not Detected (NOT DETECT); Coronavirus HKU1 Not Detected (NOT DETECT); Coronavirus NL63 Not Detected (NOT DETECT); Coronavirus OC43 Not Detected (NOT DETECT); Human Metapneumovirus Not Detected (NOT DETECT); Human Rhinovirus/Enterovirus Not Detected (NOT DETECT); Influenza A/2009-H1 Not Detected (NOT DETECT); Influenza A/H1 Not Detected (NOT DETECT); Influenza A/H3 Not Detected (NOT DETECT); Influenza B Not Detected (NOT DETECT); Mycoplasma pneumoniae Not Detected (NOT DETECT); Parainfluenza Virus 1 Not Detected (NOT DETECT); Parainfluenza Virus 2 Not Detected (NOT DETECT); Parainfluenza Virus 3 Not Detected (NOT DETECT); Parainfluenza Virus 4 Not Detected (NOT DETECT); Respiratory Syncytial Virus Not Detected (NOT DETECT)
[2020-03-19 16:43] LABS: U Amphetamine Screen Not Detected; U Barbituate Screen Not Detected; U Benzodiazapine Screen Not Detected; U Buprenorphine Screen Not Detected; U Cannabinoids Screen Not Detected; U Cocaine Screen Not Detected; U Methadone Screen Not Detected; U Methamphetamine Screen Not Detected; U Opiates Screen Not Detected; U Oxycodone Screen Not Detected; U Phencyclidine Screen DETECTED; U Propoxyphene Screen Not Detected
[2020-03-19 17:39] LABS: Bun/Creatinine Ratio 16.8 (12.0-20.0); Calcium, Blood 8.9 mg/dL (8.5-10.1); Creatinine, Blood 1.31 mg/dL (0.40-1.00); Potassium, Blood 4.6 mmol/L (3.5-5.5)
--- NOTE | 2020-03-19 18:13 | NUR ---
pt on vent, power of state attorney, advance directive and polst on chart. AD and POLST are incomplete
--- NOTE | 2020-03-19 19:13 | NUR ---
CARE ASSUMED/SHIFT SUMMARY 1445: PT TO ICU 7 FROM ER, REPORT RECEIVED. PT SETTLED INTO BED, BP SLIGHLTY HYPOTENSIVE, HR 80'S-90'S SINUS. PT SEDATED WITH PROPOFOL 35MCG, OPENS EYES TO VERBAL STIMULATION, FOLLOWS SIMPLE COMMANDS, REMAINS QUIET AND CALM WHEN RESTING. SWB IN PLACE, PT INTUBATED, VENT SETTINGS AC 18, Vt 370, FIO2 35%, PEEP 5, SPO2 MID 90'S. LS COARSE WITH EXPIRATORY WHEEZES T/O, LS DO NOT CLEAR WITH SUCTIONING DESPITE LARGE AMOUNTS OF GREEN SPUTUM FROM ETT. OG TO LIWS. MORELAND SECURED, PATENT AND DRAINING CLEAR YELLOW. 1600: DR. YI HAS BEEN IN TO ASSESS PATIENT, NO CHANGES MADE TO VENT AT THIS TIME. PRECEDEX ADDED AT 0.2MCG, VANCO INFUSING PER ORDERS, NS INFUSION CHANGED TO LR@100ML/HR. PT CONSISTENTLY HYPOTENSIVE DESPITE FLUIDS, WILL NOTIFY DR. YI. PT STILL REMAINS LIGHTLY SEDATED, OPENS EYES TO VOICE, ROJO, DOES NOT FIGHT VENT WHEN RESTING, BECOMES AGITATED WITH ETT SUCTION BUT SETTLES AFTER SUCTIONING COMPLETED. 1900: DR. YI NOTIFIED OF HYPOTENSION, BOLUS AND ALBUMIN ADMINISTERED PER ORDERS WITH SLIGHT IMPROVEMENT, MA 60'S AT THIS TIME. PT MEDICATED PER JAN FOR CBG, LABS DRAWN. PRECEDEX .02MCG, PROPOFOL 25MCG, DECREASED RATE FOR HYPOTENSION. LR INFUSING AT 100ML/HR, ALBUMIN CONTINUES TO INFUSE. PT MEDICATED X1 WITH FENTANYL FOR AGITATION/RESTLESSNESS WITH GOOD RESPONSE, BUT WAS HYPOTENSIVE. IS NOW RESTING QUIETLY IN BED, NO AGITAITON/COUGHING NOTED. LS REMAIN WHEEZY AND COARSE, SPO2 WNL, NO CHANGES MADE TO VENT THIS SHIFT. REPORT TO ONCOMING RN.
[2020-03-19 19:15] LABS: PCO2 Arterial 56.5 mmHg (35-45); PO2 Arterial 61.6 mmHg (80-100)
[2020-03-19 19:16] LABS: pH Blood Arterial 7.28 (7.35-7.45)
--- NOTE | 2020-03-19 19:30 | NUR ---
ASSUMED CARE NOTE: ASSUMED CARE OF PT AT 1900, RECEVIED REPORT FROM JEANA. PT IS ABLE TO OPEN EYES SPONTANEOUSLY, ABLE TO RESPOND TO PAINFUL AND VERBAL STIMULI. PT IS ABLE TO FOLLOW COMMANDS. PT IS INTUBATED WITH VENT SETTINGS @ AC18/370/5/35%, SPO2 ABOVE 95%, PT IS PRODUCING YELLOW THICK SPUTUM. LUNG SOUNDS ARE DIM T/O, WITH EXPIRATORY WHEEZE IN THE LOWER LOBES. PT IS SEDATED WITH 25MCG/KG/MIN OF PROPOFOL, AND 0.2MCG/KG/HR OF PRECEDEX. SBP IN THE 90'S, MAP ABOVE 65. PT IN NSR WITH HR IN 0THE 90'S. BOWEL TONES HEARD IN ALL FOUR QUADRANTS, MORELAND IS PATENT AND DRAINING EARNESTINE COLORED URINE. BILAT SWR IN PLACE, BED AT LOWEST LEVEL.
--- NOTE | 2020-03-19 20:16 | NUR ---
UPDATE: CALLED , REGARDING CRITICAL pH, NO NEW ORDERS GIVEN. PT IS BECOMING MORE AGITATED AND BEGINING TO PULL AT LINES AND TUBES. 2MG OF VERSED GIVEN PER ORDER. PROPOFOL INCREASED TO 35MCG/KG/MIN, PRECEDEX @ 0.4MCG/KG/HR, VITALS STABLE.
--- NOTE | 2020-03-20 02:32 | NUR ---
UPDATE: PT HAS BEEN GIVEN VERSED PER EMAR DUE TO INCREASED AGITATION. PT IS ABLE TO ANSWER YES/NO QUESTIONS USING BODY MOVEMENTS. WHEN ASKED IF SHE WAS IN PAIN SHE RESPONDED "YES". PT WAS GIVEN FENTYNAL PER EMAR. PROPOFOL CURRENTLY @ 40MCG/KG/MIN, PRECEDEX @ 0.2MCG/KG/HR
[2020-03-20 03:33] LABS: BASOPHILS ABSOLUTE AUTO 0.05 K/mm3 (0.00-0.23); BASOPHILS PERCENT AUTO 0 % (0-2); EOSINOPHILS PERCENT AUTO 0 % (0-6); Hematocrit 37.3 % (33.0-51.0); Hemoglobin 11.8 g/dL (11.5-16.0); IMMATURE GRAN ABSOLUTE AUTO 0.13 K/mm3 (0.00-0.10); IMMATURE GRAN PERCENT AUTO 1 % (0-1); LYMPHOCYTES PERCENT AUTO 5 % (21-46); MONOCYTES ABSOLUTE AUTO 0.94 K/mm3 (0.16-1.47); MONOCYTES PERCENT AUTO 4 % (4-13); Mean Corpuscular HGB 31.4 pg (26.0-34.0); Mean Corpuscular HGB Conc 31.6 g/dL (31.5-36.5); Mean Platelet Volume 9.9 fL (9.1-12.4); NEUTROPHILS ABSOLUTE AUTO 19.73 K/mm3 (1.96-9.15); NEUTROPHILS PERCENT AUTO 90 % (41-73); Platelet Count 253 K/mm3 (150-400); RDW Coefficient Variation 12.2 % (11.7-14.2); RDW Standard Deviation 44.7 fL (35.1-46.3); Red Blood Cell Count 3.76 M/mm3 (3.80-5.20); White Blood Cell Count 21.95 K/mm3 (4.00-11.30)
[2020-03-20 03:38] LABS: Mean Corpuscular Volume 99 fL (80-100)
[2020-03-20 03:51] LABS: Alanine Aminotransfer (ALT/SGP 24 U/L (12-78); Albumin, Blood 3.4 g/dL (3.4-5.0); Albumin/Globulin Ratio 0.8 (0.8-1.8); Alk Phos 73 U/L (50-136); Anion Gap 7 mmol/L (6-16); Aspartate Aminotrans (AST/SGOT 22 U/L (12-37); Bilirubin, Total 0.3 mg/dL (0.1-1.0); Blood Urea Nitrogen 21 mg/dL (8-24); Bun/Creatinine Ratio 24.7 (12.0-20.0); CO2, Blood 26 mmol/L (21-32); Chloride, Blood 107 mmol/L (98-108); Creatinine, Blood 0.85 mg/dL (0.40-1.00); Globulin, Blood 4.2 g/dL (2.2-4.0); Glomerular Filtration Rate >60 (60-); Glucose, Blood 323 mg/dL (70-99); Potassium, Blood 4.3 mmol/L (3.5-5.5); Sodium, Blood 140 mmol/L (136-145); Total Protein, Blood 7.6 g/dL (6.4-8.2)
--- NOTE | 2020-03-20 04:49 | NUR ---
UPDATE: PT IS AGITATED, GRABBING AT LINES/TUBES. PT IS KICKING AND ATTEMPTING TO GET OUT OF RESTRAINTS. PROPOFOL WAS INCREASED TO 60MCG/KG/MIN, PRECEDEX REMAINS @ 0.7MCG/KG/HR. FENTYNAL GIVEN PER EMAR FOR PAIN. VITALS STABLE WILL CONTINUE TO MONITOR PT.
--- NOTE | 2020-03-20 05:40 | NUR ---
SHIFT SUMMARY: READ PREVIOUS NOTES. PT IS NOW BEING WELL SEDATED WITH PROPOFOL RUNNING AT 60MCG/KG/MIN, WITH PRECEDEX @ 0.7MCG/KG/HR. PT'S VENT SETTINGS CONTINUE TO BE AC18/370/5/35%, WITH SPO2 ABOVE 90% PT HAS BEEN HAVING MODERATE AMOUNTS OF THICK YELLOW SECRETIONS. VENT WEAN TRAIL WAS UNABLE TO BE OBTAINED, DUE TO PT'S AGITATION AND ATTEMPT TO REACH FOR TUBE DURING LOW PERIODS OF SEDATION. PT HAS REQUIRED VERSED AND FENTYNAL PER EMAR T/O SHIFT. PT VITALS HAVE BEEN STABLE. PT HAS BEEN BETWEEN NSR AND SIT, WITH HR OF 80'S AND 110'S WITH AGITATION. PT'S OG TUBE IS CONNECTED TO LOW INTERMIT SUCTION, DRAINING GREEN BILE. PT'S MORELAND IS PATNET AND DRAINING BURGUNDY URINE, WITH VISIBLE BLOOD CLOTS. PT HAS BEEN REPOSITIONED Q2H TO PREVENT SKIN BREAKDOWN, WILL CONTINUE TO MONITOR PT UNTIL REPORT IS GIVEN TO ONCOMING SHIFT.
--- NOTE | 2020-03-20 11:23 | NUR ---
0800 CARE ASSUMED ASSESSMENT COMPLETED, PT AGITATED AFTER ETT SUCTIONING AND REPOSITIONING, MEDICATED WITH FENTANYL PER ORDERS WITH GOOD RESULTS. OPENS EYES, ROJO, DOES NOT FOLLOW DIRECTIONS OR COMMANDS. VSS, BP WNL. PT REMAINS INTUBATED AND SEDATED WITH PROPOFOL 60MCG AND PRECEDEX 0.7MCG, LR 100ML/HR. LS COARSE T/O WITH EXPIRATORY WHEEZES, WHEEZES ARE LESS PROMINENT THAN LAST EVENING. LARGE AMOUNT OF YELLOW SECRETIONS FROM ETT, LOOSE COUGH NOTED. MORELAND SECURED, PATENT AND DRAINING, URINE IS BURGUNDY, NO CLOTS NOTED AT THIS TIME, WILL FLUSH TO ASSURE PATENCY. SWB IN PLACE, PT REPOSITIONED, ORAL CARE COMPLETED.
--- NOTE | 2020-03-20 11:28 | NUR ---
1030 UPDATE LS ARE DIMINISHED AT THIS TIME, FAINT EXP WHEEZE NOTED IN CHING, NO OHTER WHEEZES OR COARSE SOUNDS NOTED. SCANT OUTPUT FROM ETT AT THIS TIME. JAMES YI AND JOSE IN TO SEE PATIENT, NEW ORDERS RECIEVED. DR. YI AWARE OF PT'S LEFT EYE BEING RED WITH DRAINAGE WELL LAST NIGHT'S ABG RESULTS, NO NEW ORDERS REGARDING EITHER. BP REMAINS STABLE, WILL CONTINUE TO MONITOR.
--- NOTE | 2020-03-20 13:33 | NUR ---
SELF EXTUBATION RN AT BEDSIDE AT 1230 FOR AFTERNOON CARES, PT MEDICATED WITH FENTANYL FOR RESTLESSNESS/AGITATION, RESPONDED WELL. ORAL CARE, REASSESSMENTS, AND REPOSITIONING COMPLETED, PT RESTING QUIETLY WITH EYES CLOSED, NO AGITATION NOTED. RESTRAINTS IN PLACE. SOON AFTER RN LEFT ROOM, ENDODONTICS DENTIST ALARMED FOR TACHYCARDIA. PT SELF EXTUBATED AT 1258. THIS RN AND DR. YI AT BEDSIDE, O2 PLACED AT 5L/NC, SPO2 96%. ORAL SUCTIONING COMPLETED, PROPOFOL OFF. LS REMAIN FAINTLY WHEEZY. HR TACHYCARDIC 140'S-160'S, DR. CRABTREE, PRECEDEX INCREASED TO 1.4MCG PER DR. YI. HR DECREASED TO 110, BP WNL. PT AWAKE, ALERT, ORIENTED TO SELF ONLY, COMMUNICATING VERBALLY WITHOUT DIFFICULTY. FOLLOWS COMMANDS AND TRACKS, DARREL, IS CONFUSED AT BASELINE. SPO2 REMAINS MID 90'S ON 5L/NC, PT ABLE TO PROTECT OWN AIRWAY AT THIS TIME. WILL CONTINUE TO MONITOR.
--- NOTE | 2020-03-20 14:28 | NUR ---
UPDATE PT REMAINS CONFUSED, REORIENTED MANY TIMES. ICE CHIPS GIVEN FOR TRIAL, PT TOLERATED WELL. SPO2 95% ON 5L/NC, HR 106.
--- NOTE | 2020-03-20 18:34 | NUR ---
END OF SHIFT SINCE SELF EXTUBATION, PT HAS BEEN ON 5L O2/NC, SPO2 > 95%. BP 130/70, HR 80'S, PT AFEBRILE. LOOSE PRODUCTIVE COUGH REMAINS PRESENT WITH SMALL AMOUNT OF SPUTUM PRODUCTION. LS FAINTLY WHEEZY, PT DENIES SOB. MORELAND CONTINUES TO DRAIN BURGUNDY URINE, CLOTS PRESENT THIS EVENING. MORELAND FLUSHED ONCE THIS SHIFT. PT VERY FORGETFUL, MOODS VERY LABILE, PT BECOMES ANGRY, THEN CRIES, ASKS RN'S TO LEAVE, THEN ASKS THEM TO STAY. PT REORIENTED CONTINUOUSLY TO PLACE AND SITUATION, FORGETS ALMOST IMMEDIATELY WHERE SHE IS AND WHY. PT TOLERATING LIQUIDS WITHOUT DIFFICULTY. REPORT TO ONCOMING SHIFT.
--- NOTE | 2020-03-20 21:15 | NUR ---
UPDATE: CALLED REGARDING PT'S INCREASED AGITATION. PT WAS ATTEMPTING TO GET OUT OF BED, PULLING AT LINES AND TAKING OFF OXYGEN. SPO2 DROPPED TO 80%, PT WAS THEN PLACED ON A NON-REBREATHER 10L OF O2. PT WAS THEN PLACED IN CARI AND WRIST RESTRAINTS. NEW ORDERS FOR ATIVAN GIVEN. PRECEDEX RUNNING @ 1.4MCG/KG/HR
[2020-03-21 04:12] LABS: Hemoglobin 13.1 g/dL (11.5-16.0); Mean Corpuscular HGB 31.1 pg (26.0-34.0); Mean Corpuscular HGB Conc 30.5 g/dL (31.5-36.5); Mean Platelet Volume 10.3 fL (9.1-12.4); NRBC ABSOLUTE 0.02 K/mm3 (0.00-0.02); NRBC Auto 0.1 /100 WBC (0.0-0.2); Platelet Count 321 K/mm3 (150-400); RDW Coefficient Variation 12.4 % (11.7-14.2); RDW Standard Deviation 46.7 fL (35.1-46.3); Red Blood Cell Count 4.21 M/mm3 (3.80-5.20)
[2020-03-21 04:20] LABS: Mean Corpuscular Volume 102 fL (80-100)
[2020-03-21 04:25] LABS: Albumin, Blood 3.4 g/dL (3.4-5.0); Anion Gap 6 mmol/L (6-16); Blood Urea Nitrogen 29 mg/dL (8-24); Bun/Creatinine Ratio 36.8 (12.0-20.0); CO2, Blood 29 mmol/L (21-32); Calcium, Blood 9.2 mg/dL (8.5-10.1); Chloride, Blood 106 mmol/L (98-108); Creatinine, Blood 0.79 mg/dL (0.40-1.00); Glomerular Filtration Rate >60 (60-); Glucose, Blood 173 mg/dL (70-99); Phosphorus, Blood 4.4 mg/dL (2.5-4.9); Potassium, Blood 4.3 mmol/L (3.5-5.5); Sodium, Blood 141 mmol/L (136-145)
[2020-03-21 04:40] LABS: BAND PERCENT MAN 9 % (0-8); BASOPHILS PERCENT MAN 0 % (0-2); EOSINOPHILS PERCENT MAN 0 % (0-6); LYMPHOCYTES ABSOLUTE MAN 3.64 K/mm3 (0.84-5.20); LYMPHOCYTES PERCENT MAN 11 % (21-46); MONOCYTES ABSOLUTE MAN 1.65 K/mm3 (0.16-1.47); MONOCYTES PERCENT MAN 5 % (4-13); SEG NEUTROPHILS PERCENT MAN 75 % (41-73); TOTAL CELLS COUNTED 100
--- NOTE | 2020-03-21 05:51 | NUR ---
SHIFT SUMMARY: SEE PREVIOUS NOTES. PT REMAINS ON PRECEDEX 1.4MCG/KG/HR, DUE TO INCREASED AGITATION. PT REMAINS ON 4L OF O2 VIA NC, SPO2 ABOVE 90% PT IS CONFUSED AND AT TIMES HAS VISUAL HALLUCINATIONS. SHE IS UNABLE TO CARRY A CONVERSATION AND IS VERY FORGETFUL. PT WAS PLACED IN A CARI VEST AND BILAT SWR THIS SHIFT DUE TO PT ATTEMPTING TO GET OUT OF BED W/O ASSISTANCE, AND TAKING OFF NASAL CANNULA. PT IS NON-REDIRECTABLE AND CRIES OUT " HELP, HELP" " I CANNOT BREATH, I CANNOT BE IN BED" " YOU ARE TRYING TO KILL ME" WHEN ASKED WHAT STAFF CAN DO TO ASSIST HER , SHE STATES " I DONT KNOW" WAS CALLED DUE TO INCREASED ANXIETY AND AGITATION, ORDERS GIVEN FOR ATIVAN PRN. PT C/O PAIN, FENTYNAL HAS BEEN GIVEN PER EMAR. PT WAS FINALLY ABLE TO GET SOME SLEEP IN THE PAST FOUR HOURS. PT HAS BEEN REPOSITIONED Q2HR. MORELAND DRAINING BURGANDY COLORED URINE. WILL CONTINUE TO MONITOR PT T/O SHIFT. BED AT LOWEST LEVEL.
--- NOTE | 2020-03-21 08:55 | NUR ---
CARE ASSUMED ASSESSMENT COMPLETED. PT ON 5L/NC, SPO2 98%. O2 DECREASED TO 4L, WILL CONTINUE TO TITRATE ABLE. LS COARSE WITH WHEEZES, PT DENIES SOB, LOOSE COUGH CONTINUES. MORELAND DRAINING CLEAR YELLOW URINE AT THIS TIME, NO CLOTS NOTED. PT DROWSY AT THIS TIME, OPENS EYES TO VERBAL STIMULUS, ANSWERS QUESTIONS INTERMITTENTLY, THEN FALLS QUICKLY BACK ASLEEP. PT ORIENTED TO SELF ONLY, BELIEVES SHE IS IN THE [facility]. SIP OF WATER GIVEN WITHOUT DIFFICULTY, PO MEDS HELD AT THIS TIME FOR SEDATION. PRECEDEX RATE DECREASED. DR. GARCIA IN TO SEE PATIENT.
--- NOTE | 2020-03-21 09:25 | NUR ---
PT WAKING UP, PO MEDS ADMINISTERED WITHOUT DIFFICULTY.
--- NOTE | 2020-03-21 15:23 | NUR ---
UPDATE 'S MIGUEL IN TO SEE PATIENT, NEW ORDERS. ATTEMPTING TO TITRATE DOWN O2 AND PRECEDEX, SEROQUEL AND ZYPREXA ADMINISTERED PER ORDERS. KEEP SPO2 >88% PER DR. YI. VSS TODAY, PT MAINTAINING SPO2 92-94% ON 1L AT THIS TIME, PRECEDEX 0.4MCG, PT SLEEPY BUT WAKES EASILY, IS CALM AND COOPERATIVE WITH CARE, FOLLOWS DIRECTIONS. BEDBATH COMPLETED WITHOUT INCIDENT, PT COOPERATIVE AND HELPFUL. WATER GIVEN, PT REQUESTING NEB TREATMENT, RT AT BEDSIDE. PT BECAME VERY CLAUSTROPHOBIC WITH NEB MASK, SPO2 DECREASED TO 80'S, HR UP TO 140'S. ATIVAN AND FENTANYL GIVEN, PT CALMED, SPO2 MID 90'S ON 1L/NC. PT SLEEPING, HR 80'S. WILL CONTINUE TO MONITOR.
--- NOTE | 2020-03-21 17:40 | NUR ---
END OF SHIFT PT CALMED AND RESTED WELL AFTER BEING MEDICATED FOR ANXIETY FROM NEB TREATMENT. PRECEDEX TITRATED OFF, O2 1L/NC, ATTEMTED RA BUT PT DESAT DOWN TO 87%. SPO2 AT THIS TIME 91%. RESTRAINTS HAVE BEEN OFF SINCE BATH, PT CALM AND COOPERATIVE, FOLLOWS DIRECTIONS, NO AGITATION, RESTLESSNESS, OR PULLING AT LINES/CORDS. VSS AT THIS TIME, LS REMAIN WHEEZY, NO COARSE LS NOTED AT EVENING ASSESSMENT. PT CONTINUES TO COUGH AND SWALLOW SPUTUM, COUGH BECOMING STRONGER. WILL CONTINUE TO MONITOR AND REPORT TO ONCOMING SHIFT.
--- NOTE | 2020-03-21 20:45 | NUR ---
ASSUMED CARE NOTE: ASSUMED CARE OF PT AT 1900, RECEVIED REPORT FROM CHRIS HILLS. PT IS ALERT AND ORIENTED TO SELF, SHE IS CONFUSED, AND ATTEMPTING TO GET OUT OF BED STATING SHE CANNOT BREATH. PT REMOVED NASAL CANNULA, SPO2 DROPPED INTO THE 80S. HR INCREASED TO 150 BMP. PT WAS HYPERVENTILATING. NON-REBREATHER WAS PLACED ON HER 10L/MIN. PT WAS THEN GIVEN ATIVAN FOR AGITATION. AFTER 15 MINUTES PT RECOVERED AND SHE WAS PLACED ON 2L OF NC, SPO2 ABOVE 90%, HR CAME DOWN TO 104 BPM, PT IN SINUS RHYTHM. PT HAS NOT URINATED SINCE ANICETO WAS DC'D WILL MONITOR FOR OUTPUT. BED AT LOWEST LEVEL, CALL LIGHT WITHIN REACH.
--- NOTE | 2020-03-21 23:26 | NUR ---
CALLED REGARDING EMERGENCY INTUBATION ORDERS FOR THE NEXT SEVEN DAYS INCASE PT'S TRACH DISLODGES. ORDERS GIVEN
--- NOTE | 2020-03-22 01:12 | NUR ---
UPDATE: PT YELLING OUT " HELP, HELP", WHEN ASKED WHAT SHE NEEDS, SHE REPLIES " NOTHING" PT IS C/O PAIN, FENTYNAL GIVEN PER EMAR.
--- NOTE | 2020-03-22 04:14 | NUR ---
UPDATE: PT ATTEMPTING TO CRAWL OUT OF BED. PT STATING SHE CANT BREATH, PT IS WHEEZY T/O. PT REMOVED OXYGEN AND DESATED, PT THEN PLACED ON NON-REABREATHER, SPO2 ABOVE 90% PT HAS NON-PRODUCTIVE WEAK COUGH. PT IS NOW NPO, PT IS NOT FOLLOWING DIRECTIONS AND IS UNSAFE TO SWALLOW. WILL SEEK ORDER FOR SWALLOW EVAL.
[2020-03-22 04:46] LABS: Hematocrit 40.9 % (33.0-51.0); Hemoglobin 12.8 g/dL (11.5-16.0); Mean Corpuscular HGB 31.2 pg (26.0-34.0); Mean Corpuscular HGB Conc 31.3 g/dL (31.5-36.5); Mean Corpuscular Volume 100 fL (80-100); Mean Platelet Volume 9.7 fL (9.1-12.4); Platelet Count 308 K/mm3 (150-400); RDW Coefficient Variation 12.5 % (11.7-14.2); White Blood Cell Count 26.26 K/mm3 (4.00-11.30)
[2020-03-22 05:01] LABS: Albumin, Blood 3.1 g/dL (3.4-5.0); Anion Gap 3 mmol/L (6-16); Blood Urea Nitrogen 24 mg/dL (8-24); Bun/Creatinine Ratio 37.7 (12.0-20.0); CO2, Blood 34 mmol/L (21-32); Chloride, Blood 106 mmol/L (98-108); Creatinine, Blood 0.64 mg/dL (0.40-1.00); Glomerular Filtration Rate >60 (60-); Glucose, Blood 129 mg/dL (70-99); Phosphorus, Blood 3.4 mg/dL (2.5-4.9); Potassium, Blood 4.5 mmol/L (3.5-5.5); Sodium, Blood 143 mmol/L (136-145)
[2020-03-22 05:34] LABS: BAND PERCENT MAN 9 % (0-8); BASOPHILS PERCENT MAN 0 % (0-2); EOSINOPHILS PERCENT MAN 0 % (0-6); LYMPHOCYTES ABSOLUTE MAN 3.93 K/mm3 (0.84-5.20); LYMPHOCYTES PERCENT MAN 15 % (21-46); METAMYELOCYTE ABSOLUTE MAN 0.26 K/mm3 (0.00-0.00); METAMYELOCYTE PERCENT MAN 1 % (0-0); MONOCYTES ABSOLUTE MAN 0.52 K/mm3 (0.16-1.47); MONOCYTES PERCENT MAN 2 % (4-13); NEUTROPHILS ABSOLUTE MAN 21.53 K/mm3 (1.96-9.15); SEG NEUTROPHILS PERCENT MAN 73 % (41-73); TOTAL CELLS COUNTED 100
--- NOTE | 2020-03-22 05:56 | NUR ---
SHIFT SUMMARY: SEE PREVIOUS NOTES. PT REMAINS CONFUSED AND YELLS OUT. SHE CONTINUES TO C/O PAIN (GENERLIZED). PT HAS BEEN ATTEMPTING TO GET OUT OF BED MULTIPLE TIMES THIS SHIFT. PT WORKS HERSELF UP AND BECOMES SOB WITH ACTIVITY, PT THEN REQUIRES 10L OF O2 VIA NON-REABREATHER TO RECOVER. PT IS CURRENLTY ON 3L OF O2 VIA NC, SPO2 ABOVE 90% PT HAS DEMANDED TO HAVE WATER. PT HAS A WET VOICE, PT HAS BEEN NPO. WILL PASS IN REPORT THAT PT MAY NEED A SWALLOW EVAL. PT HAS BEEN IN SINUS TACH WITH HR @ 105. PT HR WILL JUMP INTO THE 130'S WITH ACTIVITY. PT HAS NOT HAD A BM SINCE ADMISSION, WILL PASS ON IN REPORT. PT IS INCONTINENT OF URINE, ATTENDS IN PLACE. WILL CONTINUE TO MONITOR PT UNTIL REPORT IS GIVEN TO ONCOMING SHIFT. BED AT LOWEST LEVEL, BED ALARM ON
--- NOTE | 2020-03-22 07:30 | NUR ---
ASSUMED CARE PT. ALERT THIS AM. ORIENTED TO LOCATION HOWEVER FORGETFUL. PT. REPORTS HEADACHE THIS AM, WILL TALK WITH ABOUT TYLENOL UPON ROUNDS. COOL RAG PROVIDED TO FOREHEAD AND PT REPOSITIONED FOR COMFORT. PT. HAS HARSH PRODUCTIVE COUGH THIS AM. LS COARSE/ WITH WHEEZES T/O. PT. CURRENTLY ON 3LNC. ROJO IN BED. AFEBRILE. CARI VEST IN PLACE FOR SAFETY ALONG WITH BED IN LOW POSTION AND BED ALARM ON. PT ABLE TO REPOSITION SELF NEEDED IN BED. ATTENDS IN PLACE CDI.
--- NOTE | 2020-03-22 08:22 | NUR ---
UP TO CHAIR LIGHTS TURNED ON, WINDOWS OPENED. PT. MORE ALERT AND ORIENTED AT THIS TIME. ABLE TO ASSIST WITH BED BATH AND REPOSITIONING. COMPLETE BED BATH GIVEN. PT DOES GET SOB WITH EXCERTION WITH AUDIBLE WHEEZES. INHALER GIVEN BY RT. PT. ABLE TO STAND WITH 2 PERSON ASSIST AND TRANSFER TO BEDSIDE RECLINER. PT. TOLERATED WELL. CALM AND COOPERATIVE WITH CARE. POSE VEST REMOVED FOR BATH AND REMAINS OFF. TAB ALARM PLACED FOR SAFETY. CALL LIGHT IN REACH. VSS.
--- NOTE | 2020-03-22 08:24 | NUR ---
DR. GARCIA IN TO SEE PT. PLANS FOR TRANSFER TO MEDICAL FLOOR NO TELE. PER ORDER ONCE PT IS SEEN BY SPEECH THERAPY AND CAN TOLERATE PO IV FLUIDS CAN BE DCD. TYLENOL ORDERED FOR PAIN.
--- NOTE | 2020-03-22 09:15 | NUR ---
SPEECH THERAPY IN TO SEE PT. PER SPEECH THERAPY PT TO BE STRICT NPO FOR ASPIRATION RISK. DR. CORBIN AWARE. DOBHOFF TO BE PLACED FOR MEDS AND TUBE FEEDING. DIETARTY TO ORDER TF.
--- NOTE | 2020-03-22 10:30 | NUR ---
DOBHOFF PLACED 63 AT THE NARES. SECURED VIA TEGADERM. PT. CONTINUES ON 3LNC. PT. OCCASINALLY REACHING TOWARDS TUBE AND REMOVING OXYGEN. FREQUENT REORIENTATION NEEDED.
--- NOTE | 2020-03-22 11:20 | NUR ---
OT IN TO WORK WITH PT.
--- NOTE | 2020-03-22 11:47 | NUR ---
PT CONTINUES TO BE CONFUSED AT TIMES. AND CONTINUES TO PULL AT OXYGEN AND NG TUBE. PT NEEDING CONSTANT REDIRECTING. PT CONTINUES TO IMPULSIVELY ATTEMPT TO EXIT BED. BED ALARM REMAINS ON HOWEVER FOR PT SAFETY VEST PLACED. PT CONSTANTY YELLING OUT.
--- NOTE | 2020-03-22 11:52 | NUR ---
PT PULLED NG TUBE. WHEN ASKING PT WHAT HAPPENED SHE SHOUTS "I PULLED IT OUT, I DONT WANT IT IN MY NOSE IT HURTS". PT REFUSING TO PUT OXYGEN IN NOSE WELL SHOUTING "HELP COME AND GET ME", RT ATTEMPTING TO REPLACE OXYGEN. PT ALLOWING FOR O2 TO BE PLACED IN MOUTH HOWEVER REFUSING TO HAVE DOBHOFF REPLACED. PT PULLING OFF O2 SENSOR FREQUENTLY.
--- NOTE | 2020-03-22 12:06 | NUR ---
CALL TO DR. CORBIN TO UPDATE ON REMOVAL OF DOBHOFF PER. DR. CORBIN LEAVE DOBHOFF OUT TODAY, WE CAN TRY AGAIN TOMORROW. UPDATED ON PT AGGITATION AND CONFUSION. PLAN TO CALL UPDATE FAMILY.
--- NOTE | 2020-03-22 14:04 | NUR ---
UPDATE FAMILY ON PT CONDITION
--- NOTE | 2020-03-22 14:42 | NUR ---
PT UP WITH PHYSICAL THERAPY. ATTENDS AND LINENS CHANGED WHILE UP WITH PT.
--- NOTE | 2020-03-22 16:26 | NUR ---
Initial spiritual care note: Lesa was quite confused when I visited. She was tearful, restless. She calmed for a while with calm presence and words of assurance. But this did not last. She could not get comfortable in bed and complained about the restrictions placed on her. She wants to go home and does not understand why she is hospitalized. I will remain available.
--- NOTE | 2020-03-22 17:49 | NUR ---
CALL TO DR. CORBIN FOR HYPERTENSION PRN IV MEDICATIONS ORDERED.
--- NOTE | 2020-03-22 17:59 | NUR ---
SHIFT SUMMARY PT. CONTINUES TO YELL AND THROW LEGS OVER THE BED T/O DAY. PT. NEEDING CONSTANT REDIRECTING. FAMILY UPDATED ON THIS BEHAVIOR AND THEY REPORTED BEHAVIOR IS CLOSE TO BASELINE. PT. IN VEST RESTRAINT FOR SAFETY. PT. PULLED OUT DOBHOFF THIS SHIFT AND CONSTANTLY REMOVED O2, AND SPO2 PROBES. DR. CORBIN AWARE OF PT BEHAVIOR. PT. WORKED WITH PHYSICAL THERAPY AND OT TODAY AND DID WELL, WAS ABLE TO AMBULATE WITH THE WALKER. PT. FAILED SWALLOW EVAL AND THEY WILL REASSESS TOMORROW. FREQUENT ORAL CARE DONE T/O DAY. PT. INCONT. OF URINE. ATTENDS CHANGED FREQUENTLY T/O DAY. CALL LIGHT IN REACH. REPORT TO ONCOMING RN.
--- NOTE | 2020-03-22 21:00 | NUR ---
ASSUMPTION OF CARE ASSUMED CARE OF PT @ 1900, PT IN BED, YELLING OUT "HELP ME! I CAN'T BREATH! GET ME OUT OF HERE!", O2 SATURATIONS>90% ON 3L PER NC, CARI VEST AND MEDICAL SERVICES ASSISTANT IN PLACE TO PROTECT TUBES/LINES/CORDS. MONITOR SHOWS SINUS RHYTHM WITH HR 100-130'S, HR INCREASES WITH AGITATION/YELLING/COUGHING, BP HTN WITH SBP 150-160'S. PT REMAINS NPO, FAILED SWALLOW EVAL THIS AM- TO BE REPEATED TOMORROW, DOBHOFF PULLED BY PT ON PREV SHIFT. PT INCONTINENT OF URINE, ATTENDS IN PLACE. PT IS ORIENTED TO SELF AND FOLLOWS DIRECTIONS, PT CALMS DOWN AND REDIRECTABLE WITH STAFF IN ROOM BUT BEGINS YELLING WHEN STAFF EXITS THE ROOM. PT STS SHE IS AT [facility], PT REORIENTED THAT SHE WAS IN THE HOSPITAL AND PT STS "I KNOW", PT STS SHE WAS BROUGHT IN BY "CREEPS BECAUSE I WAS TURNING THEM IN", PT INTERMINTENTLY STS "I'M NOT A CRIMINAL" T/O ASSESSMENT AND STS SHE WANTS TO GO BACK TO [facility] AND SMOKE. PT ATTEMPTED GETTING OUT OF BED WHILE WRIST RESTRAING OFF FOR RESTRAINT CHECK. PT EDUCATED ON NEED FOR RESTRAINTS R/T SAFETY, PT NODS HEAD IN UNDERSTANDING BUT THEN SUBSEQUENTLY ASKS TO BE TAKEN OUT OF RESTRAINTS SO SHE CAN GO SMOKE.
--- NOTE | 2020-03-22 21:45 | NUR ---
UPON ENTERING PTS ROOM, NOTICED PT HAD SLIPPED OUT OF BILAT WRIST RESTRAINTS, PULLED BP CORD FROM MONITOR AND PULSE OXIMETRY FROM FOOT. PLACED PT BACK IN WRIST RESTRAINTS AND RECONNECTED PT BACK TO MONITOR. PT FEARFUL OF BP CORD, STS IT IS ELECTRICAL AND IS GOING TO KILL HER. ASSURED PT SHE IS SAFE AND SHOWED PT IT SAFE TO TOUCH. PT CONTINUES YELLING "HELP ME" STAFF EXIT THE ROOM.
--- NOTE | 2020-03-22 23:11 | NUR ---
TO PTS ROOM AFTER NOTICING PT STANDING AT BEDSIDE. PT STS SHE IS NOT STAYING IN THE HOSPITAL TONIGHT AND THAT SHE WANTS TO GO HOME, PT THEN REQUESTS MEDICATION TO HELP HER SLEEP. ASSISTED PT BACK TO BED, PLACED BACK IN RESTRAINTS, ZYPREXA ADMINISTERED. PT REPORTS THIRST AND HUNGER, EDUCATED PT ON NPO STATUS.
--- NOTE | 2020-03-23 02:30 | NUR ---
PT NOT TOLERATING LAYING IN BED, STS SHE FEELS LIKE SHE CANNOT BREATH, PT SAT UP TO SIDE OF BED WITH IMPROVEMENT. CRACKLES NOTED IN LUNG BASES, PT REMAINS HYPERTENSIVE AND TACHYCARDIC. CALL PLACED TO DR FORTUNE, ORDER FOR MORNING BNP AND CHEST XRAY. RT TO ROOM, ALBUTEROL INHALER ADMINISTERED.
[2020-03-23 03:46] LABS: BASOPHILS ABSOLUTE AUTO 0.06 K/mm3 (0.00-0.23); BASOPHILS PERCENT AUTO 0 % (0-2); EOSINOPHILS ABSOLUTE AUTO 0.08 K/mm3 (0.00-0.68); EOSINOPHILS PERCENT AUTO 0 % (0-6); Hematocrit 48.5 % (33.0-51.0); Hemoglobin 15.2 g/dL (11.5-16.0); IMMATURE GRAN ABSOLUTE AUTO 0.25 K/mm3 (0.00-0.10); IMMATURE GRAN PERCENT AUTO 1 % (0-1); LYMPHOCYTES ABSOLUTE AUTO 3.37 K/mm3 (0.84-5.20); LYMPHOCYTES PERCENT AUTO 14 % (21-46); MONOCYTES ABSOLUTE AUTO 1.54 K/mm3 (0.16-1.47); MONOCYTES PERCENT AUTO 7 % (4-13); Mean Corpuscular HGB 30.5 pg (26.0-34.0); Mean Corpuscular HGB Conc 31.3 g/dL (31.5-36.5); Mean Platelet Volume 9.6 fL (9.1-12.4); NEUTROPHILS ABSOLUTE AUTO 18.32 K/mm3 (1.96-9.15); NEUTROPHILS PERCENT AUTO 78 % (41-73); Platelet Count 364 K/mm3 (150-400); RDW Coefficient Variation 12.1 % (11.7-14.2); RDW Standard Deviation 43.6 fL (35.1-46.3); Red Blood Cell Count 4.98 M/mm3 (3.80-5.20); White Blood Cell Count 23.62 K/mm3 (4.00-11.30)
[2020-03-23 03:48] LABS: Mean Corpuscular Volume 97 fL (80-100)
[2020-03-23 04:05] LABS: Albumin, Blood 3.4 g/dL (3.4-5.0); Anion Gap 12 mmol/L (6-16); Blood Urea Nitrogen 22 mg/dL (8-24); Bun/Creatinine Ratio 42.8 (12.0-20.0); CO2, Blood 29 mmol/L (21-32); Calcium, Blood 9.6 mg/dL (8.5-10.1); Chloride, Blood 100 mmol/L (98-108); Creatinine, Blood 0.51 mg/dL (0.40-1.00); Glomerular Filtration Rate >60 (60-); Glucose, Blood 174 mg/dL (70-99); Phosphorus, Blood 1.9 mg/dL (2.5-4.9); Potassium, Blood 3.5 mmol/L (3.5-5.5); Sodium, Blood 141 mmol/L (136-145)
--- NOTE | 2020-03-23 07:53 | NUR ---
SHIFT SUMMARY NO ACUTE CHANGES THIS SHIFT. PT REMAINS CONFUSED, YELLING OUT WHEN STAFF EXITS THE ROOM, DID NOT SLEEP T/O NIGHT. MONITOR SHOWS SINUS RHYTHM WITH HR 90'S-130'S, PT MEDICATED x2 FOR HYPERTENSION. PT REPORTS HUNGER AND THIRST, FREQUENT EDUCATION/REORIENTATION REGARDING NPO STATUS, ORAL CARE PROVIDED. PT WITH FREQUENT URINATION, ATTENDS CHANGED APPROX Q2H.
[2020-03-23 08:52] LABS: Vancomycin, Trough 2.9 ug/mL (5.0-10.0)
--- NOTE | 2020-03-23 10:14 | NUR ---
UPDATE TO DR. GARCIA. PT NPO-UNABLE TO TAKE PO. WILL AWAIT SWALLOW EVAL. REVIEWED PHOS LEVEL. PT RESTING NOW. COVID NEGATIVE, PRECAUTIONS OFF
--- NOTE | 2020-03-23 12:08 | NUR ---
PT HAS BEEN ABLE TO REST FOR BRIEF PERIODS. AWAKE NOW, INSISTENT TO GET UP. ASSISTED UP TO CHAIR, DID WELL WITH TRANFER. CARI ON, WRIST RESTRAINTS OFF-NOT PICKING AT LINES. ABLE TO FOLLOW SOME DIRECTIONS. STILL FALL RISK AND CHAIR ALARM ON. POOR MEMORY, FREQUENTLY REQUESTING WATER. INCONTINENT URINE-PAD CHANGED
--- NOTE | 2020-03-23 14:39 | NUR ---
PT ASSISTED UP TO BEDSIDE COMMODE, C/O ANXIETY. BP ELEVATED. RX WITH LOPRESSOR AND THEN HYDRALAZINE. MULTIPLE REQUESTS FOR WATER, SPEECH THERAPIST HERE-ABLE TO TAKE THICKENED LIQUIDS, DID WELL. STATES FEELS BETTER. IV K PHOS REPLACEMENT STARTED, NEW SITE PLACED. COOPERATIVE. ABLE TO TAKE PREDNISONE AND PO LOPRESSOR WITH APPLESAUCE. ANXIETY IMPROVES WITH REASSURANCE. REPORT TO ZECHARIAH PEREZ. PT READIED FOR TRANSFER
--- NOTE | 2020-03-23 15:00 | NUR ---
PT TRANSFERRED TO ROOM 353 VIA W/C FROM ICU. TRANSFERRED WITH 1 PERSON ASSIST. BECAME SHORT OF BREATH WITH TRANSFER AND DIZZY. REQUIRED CUING WITH BREATHING IN THROUGH HER NOSE AND OUT HER MOUTH TO GET HER BREATHING EASIER. ANXIOUS ABOUT BEING LEFT ALONE. OPENED CURTAINS TO ROOM AND WINDOW AND THIS HELPED. REMINDED HER WE ARE ALWAYS IN THE HALLWAY AND SHE CAN USE THE CALL BUTTON FOR HELP AND WE CAN SPEAK TO HER DIRECTLY THROUGH THAT. CARI VEST IN PLACE.
--- NOTE | 2020-03-23 20:24 | NUR ---
SHIFT SUMMARY PT HAS REQUESTED INHALOR SEVERAL TIMES THIS AFTERNOON AND EVENING. NEEDS REMINDING TO BREATHE IN THROUGH HER NOSE AND OUT HER MOUTH TO EASE HER BREATHING. NO RESP DISTRESS NOTED. VERY FORGETFUL REQUESTING CIGARETTE WELL AND NEEDS REMINDING THERE IS NO SMOKING IN THE HOSPITAL. DOESN'T LIKE HER LIQUIDS THICKENED SO ONLY TAKING A FEW SIPS AT A TIME. ALSO DIDN'T LIKE THE PUREE SAYING IT TASTED WEIRD. REQUESTING TO GO IN THE HALLWAY "WHERE THE PEOPLE ARE". GOT HER IN A RECLINER AND BROUGHT IN HALLWAY. SEEMED CALMER IN HALLWAY. HAD BEEN CALLING OUT FOR HELP IN HER ROOM FREQUENTLY AND REMAINED ANXIOUS DURING THAT TIME.
--- NOTE | 2020-03-23 20:58 | NUR ---
PT HAS SHOWN INCREASED CONFUSION. NURSE NOTIFIED.
--- NOTE | 2020-03-24 01:05 | NUR ---
PT WAS COMPLAINING RE SOB, RT NOTIFIED, TREATMENT GIVEN. CARI SAUER CONTINUES FOR SEVERE FALL PRECAUTIONS. CALL LIGHT IN REACH
--- NOTE | 2020-03-24 04:53 | NUR ---
SHIFT SUMMARY AWAKE AND CALLING OUT INTERMITTENTLY FOR STAFF. IVF INFUSING PER MD ORDERS. VEST RESTRAINTS CONTINUE FOR SAFETY. MADE SEVERAL ATTEMPTS TO GET OUT OF BED AND EVEN UNTIED VEST WAS CAUGHT STANDING AT BEDSIDE. ASSISTED BACK TO BED, VOICED ANGER. RECEIVED RESP TREATENT X 1 EARLIER. O2 PER NC. CALL LIGHT IN REACH.
--- NOTE | 2020-03-24 06:48 | NUR ---
IV INFILTRATED. SITE DC'D. ELEVATED ON PILLOW.
--- NOTE | 2020-03-24 13:37 | NUR ---
[facility]: WHILE COVERING THIS PATIENT, [facility] CALLED FOR AN UPDATE. ABLE TO ANSWER THE QUESTIONS OF THE OR ASSISTANT. SHE DENIED NEED FOR PRIMARY RN TO CALL HER BACK.
--- NOTE | 2020-03-24 15:37 | NUR ---
Routine spiritual care note: Brigida was much more lucid today. She smiled easily and appeared to enjoy my facilitation of life review. 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 Brigida and I have an easy rapport and she responded well to theraputic listening/encouragement. No needs presented. She believes she lives at home with her dtr and grandkids. She lives at [facility]. Regardless, she was happy today and appreciaitve. I will remain available.
--- NOTE | 2020-03-24 19:57 | NUR ---
SHIFT SUMMARY: NO ACUTE CHANGES TO REPORT THIS SHIFT. PT A&O; OCC ANXIETY; COOPERATIVE WITH CARE. TELE D/C'd THIS SHIFT. DIET ADVANCED TO PUREE; PT C/O NAUSEA; MEDICATED PER EMAR. MEDICATED FOR PAIN PER EMAR. VEST RESTRAINT D/C'd THIS SHIFT. PRESUMED DISCHARGE BACK TO [facility] IN 1-2 DAYS. REPORT GIVEN TO ONCOMING RN.
--- NOTE | 2020-03-25 06:22 | NUR ---
[employer] SUMMARY PT A/O X3-4. PT WAS UP MOST OF THE SHIFT REGARDLESS OF SCHEDULED SEROQUEL AND ZYPREXA GIVEN. HOSPITALIST- DR. FORTUNE NOTIFIED. MELATONIN PO ORDERED. PT CALLS OUT FREQUENTLY AND EACH TIME SHE STATES SHE DOES NOT WANT TO BE ALONE. PT TAKEN OUT TO THE HALLWAY IN RECLINER TO BE IN COMPANY WITH STAFF. PT SEEMED TO ENJOY THAT. PT STARTED FEELING SLEEPY AROUND 0300 AND ASKED IF SHE COULD GO TO BED. PT ASSISTED BACK TO BED. VSS. MEDICATED ONCE FOR PAIN THIS SHIFT.
[2020-03-25] MEDS ORDERED: CEFU500T30 PO (11:03)
[2020-03-25] MEDS ORDERED: Nicoderm Cq1 EAC1 TOP (11:04)
[2020-03-25] MEDS ORDERED: OLANZAPINE ODT5 MG SL (11:05)
[2020-03-25] MEDS ORDERED: PRED20 PO (11:08)
[2020-03-25] MEDS ORDERED: VISBIOME 112.51 EACH PO (11:08)
[2020-03-25] MEDS ORDERED: Duoneb 2.5-0.5 M3 ML INH (12:21)
--- NOTE | 2020-03-25 14:23 | NUR ---
PT DISCHARGED TO [facility] AT 1415. PT WAS AOX3-4. [facility] WITH SOME CONCERNS ABOUT MEDICATIONS AND THESE WERE DISCUSSED WITH DR SOUSA. NEBULIZER WAS ADDED TO DISCHARGE MEDICATIONS. PT HAD BELONGS AND PACKET SENT WITH HER. PT DOING WELL A STANDBY TRANSFER NO DISTRESS NOTED. [facility] WAS NOTIFIED OF PT LEAVING PRIOR TO DISCHARGE MESSAGE LEFT ON VOICEMAIL WITH DAPHNE.
--- NOTE | 2020-03-25 16:15 | NUR ---
Provided supportive visit to Brigida, who was happy to be returning home today. She was appreciaitive of prayer and encouragement.
== END 2020-03-25 14:13 | disposition home or self-care (01) | DRG 871 ==
LOC: ER 11:38 → ICUW 13:08 → ICUE 13:08 → MEDS 13:08 → ICUE 14:51 → MEDS 03-23 14:51 → ENPENDDIS 03-25 10:00 → MEDS 03-25 14:13
PROVIDERS: Emergency Medicine; Internal Medicine Critical Care Medicine; ADMIT Hospitalist
PROC: 5A1935Z Respiratory Ventilation, Less than 24 Consecutive Hours (ICD-10-PCS; principal; 2020-03-19)
PROC: 0BH17EZ Insertion of Endotracheal Airway into Trachea, Via Natural or Artificial Opening (ICD-10-PCS; 2020-03-19)
DX: A41.3 Sepsis due to Hemophilus influenzae (principal); J96.22 Acute and chronic respiratory failure with hypercapnia; J96.21 Acute and chronic respiratory failure with hypoxia; G92 Toxic encephalopathy; J69.0 Pneumonitis due to inhalation of food and vomit; J44.1 Chronic obstructive pulmonary disease with (acute) exacerbation; N17.9 Acute kidney failure, unspecified; I50.32 Chronic diastolic (congestive) heart failure; I13.0 Hypertensive heart and chronic kidney disease with heart failure and stage 1 through stage 4 chronic kidney disease, or unspecified chronic kidney disease; R65.20 Severe sepsis without septic shock; N18.3 Chronic kidney disease, stage 3 (moderate); E11.22 Type 2 diabetes mellitus with diabetic chronic kidney disease; G89.4 Chronic pain syndrome; E87.5 Hyperkalemia; K74.60 Unspecified cirrhosis of liver; E11.42 Type 2 diabetes mellitus with diabetic polyneuropathy; K21.9 Gastro-esophageal reflux disease without esophagitis; F17.200 Nicotine dependence, unspecified, uncomplicated; Z79.4 Long term (current) use of insulin; Z22.322 Carrier or suspected carrier of Methicillin resistant Staphylococcus aureus; Z86.73 Personal history of transient ischemic attack (TIA), and cerebral infarction without residual deficits
CPT/HCPCS: 0099U; 31500; 31720; 36415; 36600; 51702; 70450; 71045; 80048; 80053; 80069; 80202; 81001; 82140; 82803; 82947; 83605; 83880; 84145; 84443; 84484; 85025; 87040; 87070; 87077; 87185; 87205; 92526; 92610; 93005; 93010; 94002; 94003; 94640; 94644; 94760; 96365; 96367; 96375; 97110; 97116; 97163; 97166; 97530; 97535; 99285-25; A9270; A9270-GY; C9113; J0360; J0610; J0696; J1650; J1815; J2060; J2250; J2543; J2704; J2920; J2930; J3010; J3370; J7030; J7050; J7060; J7120; J7512; J7799; P9046; P9612; U0003

== ENCOUNTER → 2020-04-07 | Outpatient (CLI) | payer MEDICARE, OTHER ==
[~2020-04-07] MED LIST changes: +Acetaminophen-1 EAC1 PO; +CYCLOBENZAPRINE5 MG PO; +Daily Multiple1 EACH PO; +METO50ER PO; +Nicoderm Cq1 EAC1 TOP; +OLANZAPINE ODT5 MG SL; +SPIR25 PO; +VISBIOME 112.51 EACH PO; +Vitamin D2000 UNIT PO; +Voltaren100 GM TOP
[2020-04-07 15:34] LABS: BASOPHILS ABSOLUTE AUTO 0.11 K/mm3 (0.00-0.23); BASOPHILS PERCENT AUTO 1 % (0-2); EOSINOPHILS ABSOLUTE AUTO 0.27 K/mm3 (0.00-0.68); EOSINOPHILS PERCENT AUTO 2 % (0-6); Hematocrit 44.1 % (33.0-51.0); IMMATURE GRAN ABSOLUTE AUTO 0.04 K/mm3 (0.00-0.10); IMMATURE GRAN PERCENT AUTO 0 % (0-1); LYMPHOCYTES ABSOLUTE AUTO 2.05 K/mm3 (0.84-5.20); LYMPHOCYTES PERCENT AUTO 18 % (21-46); MONOCYTES ABSOLUTE AUTO 0.73 K/mm3 (0.16-1.47); MONOCYTES PERCENT AUTO 6 % (4-13); Mean Corpuscular HGB 31.2 pg (26.0-34.0); Mean Corpuscular HGB Conc 31.7 g/dL (31.5-36.5); Mean Corpuscular Volume 98 fL (80-100); Mean Platelet Volume 10.4 fL (9.1-12.4); NEUTROPHILS ABSOLUTE AUTO 8.19 K/mm3 (1.96-9.15); NEUTROPHILS PERCENT AUTO 72 % (41-73); Platelet Count 413 K/mm3 (150-400); RDW Coefficient Variation 12.1 % (11.7-14.2); RDW Standard Deviation 43.8 fL (35.1-46.3); Red Blood Cell Count 4.49 M/mm3 (3.80-5.20); White Blood Cell Count 11.39 K/mm3 (4.00-11.30)
[2020-04-07 15:53] LABS: Alanine Aminotransfer (ALT/SGP 30 U/L (12-78); Albumin, Blood 3.7 g/dL (3.4-5.0); Albumin/Globulin Ratio 0.8 (0.8-1.8); Alk Phos 81 U/L (50-136); Anion Gap 5 mmol/L (6-16); Aspartate Aminotrans (AST/SGOT 17 U/L (12-37); Bilirubin, Total 0.5 mg/dL (0.1-1.0); Blood Urea Nitrogen 21 mg/dL (8-24); Bun/Creatinine Ratio 32.2 (12.0-20.0); CO2, Blood 31 mmol/L (21-32); Calcium, Blood 10.1 mg/dL (8.5-10.1); Chloride, Blood 101 mmol/L (98-108); Creatinine, Blood 0.65 mg/dL (0.40-1.00); Globulin, Blood 4.5 g/dL (2.2-4.0); Glomerular Filtration Rate >60 (60-); Glucose, Blood 234 mg/dL (70-99); Potassium, Blood 4.6 mmol/L (3.5-5.5); Sodium, Blood 137 mmol/L (136-145); Total Protein, Blood 8.2 g/dL (6.4-8.2)
== END | disposition home or self-care (01) ==
LOC: LAB SHORT 09:15 → LAB 09:15
PROVIDERS: Nurse Practitioner Family
DX: I11.9 Hypertensive heart disease without heart failure (principal); E11.40 Type 2 diabetes mellitus with diabetic neuropathy, unspecified
CPT/HCPCS: 80053; 83036; 85025

== ENCOUNTER → 2020-09-21 | Outpatient (CLI) | payer MEDICARE, OTHER ==
[2020-09-21 13:56] LABS: Anion Gap 3 mmol/L (6-16); Blood Urea Nitrogen 23 mg/dL (8-24); Bun/Creatinine Ratio 34.7 (12.0-20.0); CO2, Blood 29 mmol/L (21-32); Calcium, Blood 9.6 mg/dL (8.5-10.1); Chloride, Blood 108 mmol/L (98-108); Creatinine, Blood 0.66 mg/dL (0.40-1.00); Glomerular Filtration Rate >60 (60-); Glucose, Blood 137 mg/dL (70-99); Potassium, Blood 4.7 mmol/L (3.5-5.5); Sodium, Blood 140 mmol/L (136-145)
[2020-09-21 13:58] LABS: BASOPHILS ABSOLUTE AUTO 0.08 K/mm3 (0.00-0.23); BASOPHILS PERCENT AUTO 1 % (0-2); EOSINOPHILS ABSOLUTE AUTO 0.54 K/mm3 (0.00-0.68); EOSINOPHILS PERCENT AUTO 5 % (0-6); Hematocrit 39.3 % (33.0-51.0); Hemoglobin 12.5 g/dL (11.5-16.0); IMMATURE GRAN ABSOLUTE AUTO 0.02 K/mm3 (0.00-0.10); IMMATURE GRAN PERCENT AUTO 0 % (0-1); LYMPHOCYTES ABSOLUTE AUTO 3.23 K/mm3 (0.84-5.20); LYMPHOCYTES PERCENT AUTO 30 % (21-46); MONOCYTES ABSOLUTE AUTO 0.86 K/mm3 (0.16-1.47); MONOCYTES PERCENT AUTO 8 % (4-13); Mean Corpuscular HGB Conc 31.8 g/dL (31.5-36.5); Mean Corpuscular Volume 94 fL (80-100); Mean Platelet Volume 9.8 fL (9.1-12.4); NEUTROPHILS ABSOLUTE AUTO 6.13 K/mm3 (1.96-9.15); NEUTROPHILS PERCENT AUTO 57 % (41-73); Platelet Count 403 K/mm3 (150-400); RDW Coefficient Variation 11.5 % (11.7-14.2); RDW Standard Deviation 39.7 fL (35.1-46.3); Red Blood Cell Count 4.17 M/mm3 (3.80-5.20); White Blood Cell Count 10.86 K/mm3 (4.00-11.30)
== END | disposition home or self-care (01) ==
LOC: LAB SHORT 12:35 → LAB 12:35
PROVIDERS: Student in an Organized Health Care Education/Training Program
DX: L03.115 Cellulitis of right lower limb (principal); R60.0 Localized edema
CPT/HCPCS: 80048; 85025; 85379

== ENCOUNTER → 2020-11-10 | Outpatient (CLI) | payer MEDICARE, OTHER ==
[2020-11-10 15:17] LABS: BASOPHILS PERCENT AUTO 1 % (0-2); EOSINOPHILS ABSOLUTE AUTO 0.42 K/mm3 (0.00-0.68); EOSINOPHILS PERCENT AUTO 3 % (0-6); Hematocrit 41.1 % (33.0-51.0); Hemoglobin 13.3 g/dL (11.5-16.0); IMMATURE GRAN ABSOLUTE AUTO 0.03 K/mm3 (0.00-0.10); IMMATURE GRAN PERCENT AUTO 0 % (0-1); LYMPHOCYTES ABSOLUTE AUTO 3.12 K/mm3 (0.84-5.20); LYMPHOCYTES PERCENT AUTO 25 % (21-46); MONOCYTES ABSOLUTE AUTO 1.02 K/mm3 (0.16-1.47); MONOCYTES PERCENT AUTO 8 % (4-13); Mean Corpuscular HGB 30.2 pg (26.0-34.0); Mean Corpuscular HGB Conc 32.4 g/dL (31.5-36.5); Mean Corpuscular Volume 93 fL (80-100); Mean Platelet Volume 9.9 fL (9.1-12.4); NEUTROPHILS ABSOLUTE AUTO 7.83 K/mm3 (1.96-9.15); NEUTROPHILS PERCENT AUTO 63 % (41-73); Platelet Count 373 K/mm3 (150-400); RDW Coefficient Variation 11.2 % (11.7-14.2); RDW Standard Deviation 38.3 fL (35.1-46.3); Red Blood Cell Count 4.41 M/mm3 (3.80-5.20); White Blood Cell Count 12.52 K/mm3 (4.00-11.30)
[2020-11-10 15:34] LABS: Alanine Aminotransfer (ALT/SGP 31 U/L (12-78); Albumin, Blood 3.8 g/dL (3.4-5.0); Albumin/Globulin Ratio 0.8 (0.8-1.8); Alk Phos 109 U/L (50-136); Anion Gap 8 mmol/L (6-16); Aspartate Aminotrans (AST/SGOT 21 U/L (12-37); Bilirubin, Total 0.2 mg/dL (0.1-1.0); Blood Urea Nitrogen 19 mg/dL (8-24); Bun/Creatinine Ratio 35.5 (12.0-20.0); CO2, Blood 26 mmol/L (21-32); Calcium, Blood 9.7 mg/dL (8.5-10.1); Chloride, Blood 98 mmol/L (98-108); Cholesterol 219 mg/dL (50-200); Creatinine, Blood 0.54 mg/dL (0.40-1.00); Globulin, Blood 4.5 g/dL (2.2-4.0); Glomerular Filtration Rate >60 (60-); Glucose, Blood 172 mg/dL (70-99); HDL Cholesterol 44 mg/dL (>39); LDL/HDL RATIO 3.1; Low Density Lipoprotein Chol 136 mg/dL (0-110); Potassium, Blood 3.9 mmol/L (3.5-5.5); Sodium, Blood 132 mmol/L (136-145); Total Protein, Blood 8.3 g/dL (6.4-8.2); Triglycerides 197 mg/dL (30-160); Very Low Density Lipoprot Chol 39 mg/dL (6-32)
== END | disposition home or self-care (01) ==
LOC: LAB SHORT 12:50
PROVIDERS: Student in an Organized Health Care Education/Training Program
DX: E11.22 Type 2 diabetes mellitus with diabetic chronic kidney disease (principal); I12.9 Hypertensive chronic kidney disease with stage 1 through stage 4 chronic kidney disease, or unspecified chronic kidney disease; N18.9 Chronic kidney disease, unspecified; G62.9 Polyneuropathy, unspecified; Z79.4 Long term (current) use of insulin
CPT/HCPCS: 80053; 80061; 83036; 85025

== ENCOUNTER → 2021-02-09 | Outpatient (CLI) | payer MEDICARE, OTHER ==
[2021-02-09 14:54] LABS: Anion Gap 3 mmol/L (6-16); Blood Urea Nitrogen 20 mg/dL (8-24); Bun/Creatinine Ratio 29.9 (12.0-20.0); CO2, Blood 31 mmol/L (21-32); Chloride, Blood 101 mmol/L (98-108); Creatinine, Blood 0.67 mg/dL (0.40-1.00); Glomerular Filtration Rate >60 (60-); Glucose, Blood 173 mg/dL (70-99); Potassium, Blood 4.6 mmol/L (3.5-5.5); Sodium, Blood 135 mmol/L (136-145)
[2021-02-09 15:01] LABS: BASOPHILS ABSOLUTE AUTO 0.08 K/mm3 (0.00-0.23); BASOPHILS PERCENT AUTO 1 % (0-2); EOSINOPHILS ABSOLUTE AUTO 0.36 K/mm3 (0.00-0.68); EOSINOPHILS PERCENT AUTO 4 % (0-6); Hematocrit 41.9 % (33.0-51.0); Hemoglobin 13.5 g/dL (11.5-16.0); IMMATURE GRAN ABSOLUTE AUTO 0.04 K/mm3 (0.00-0.10); IMMATURE GRAN PERCENT AUTO 0 % (0-1); LYMPHOCYTES ABSOLUTE AUTO 2.86 K/mm3 (0.84-5.20); LYMPHOCYTES PERCENT AUTO 28 % (21-46); MONOCYTES PERCENT AUTO 8 % (4-13); Mean Corpuscular HGB 30.1 pg (26.0-34.0); Mean Corpuscular HGB Conc 32.2 g/dL (31.5-36.5); Mean Corpuscular Volume 93 fL (80-100); Mean Platelet Volume 10.4 fL (9.1-12.4); NEUTROPHILS ABSOLUTE AUTO 6.11 K/mm3 (1.96-9.15); NEUTROPHILS PERCENT AUTO 60 % (41-73); Platelet Count 367 K/mm3 (150-400); RDW Coefficient Variation 11.4 % (11.7-14.2); Red Blood Cell Count 4.49 M/mm3 (3.80-5.20); White Blood Cell Count 10.25 K/mm3 (4.00-11.30)
== END ==
LOC: LAB SHORT 13:17 → LAB 13:17
PROVIDERS: Student in an Organized Health Care Education/Training Program
DX: E11.22 Type 2 diabetes mellitus with diabetic chronic kidney disease (principal); N18.9 Chronic kidney disease, unspecified; N39.46 Mixed incontinence
CPT/HCPCS: 80048; 83036; 85025

== ENCOUNTER → 2021-05-20 | Outpatient (CLI) | payer MEDICARE, OTHER ==
[2021-05-20 15:17] LABS: BASOPHILS ABSOLUTE AUTO 0.08 K/mm3 (0.00-0.23); BASOPHILS PERCENT AUTO 1 % (0-2); EOSINOPHILS ABSOLUTE AUTO 0.41 K/mm3 (0.00-0.68); EOSINOPHILS PERCENT AUTO 4 % (0-6); Hematocrit 40.5 % (33.0-51.0); Hemoglobin 13.1 g/dL (11.5-16.0); IMMATURE GRAN ABSOLUTE AUTO 0.03 K/mm3 (0.00-0.10); IMMATURE GRAN PERCENT AUTO 0 % (0-1); LYMPHOCYTES ABSOLUTE AUTO 2.56 K/mm3 (0.84-5.20); LYMPHOCYTES PERCENT AUTO 23 % (21-46); MONOCYTES ABSOLUTE AUTO 0.79 K/mm3 (0.16-1.47); MONOCYTES PERCENT AUTO 7 % (4-13); Mean Corpuscular HGB Conc 32.3 g/dL (31.5-36.5); Mean Corpuscular Volume 93 fL (80-100); Mean Platelet Volume 9.9 fL (9.1-12.4); NEUTROPHILS ABSOLUTE AUTO 7.26 K/mm3 (1.96-9.15); NEUTROPHILS PERCENT AUTO 65 % (41-73); Platelet Count 431 K/mm3 (150-400); RDW Coefficient Variation 11.7 % (11.7-14.2); RDW Standard Deviation 39.8 fL (35.1-46.3); Red Blood Cell Count 4.37 M/mm3 (3.80-5.20); White Blood Cell Count 11.13 K/mm3 (4.00-11.30)
[2021-05-20 15:57] LABS: Anion Gap 6 mmol/L (6-16); Blood Urea Nitrogen 20 mg/dL (8-24); Bun/Creatinine Ratio 28.4 (12.0-20.0); CO2, Blood 28 mmol/L (21-32); Calcium, Blood 9.9 mg/dL (8.5-10.1); Chloride, Blood 99 mmol/L (98-108); Creatinine, Blood 0.71 mg/dL (0.40-1.00); Glomerular Filtration Rate >60 (60-); Glucose, Blood 124 mg/dL (70-99); Potassium, Blood 4.6 mmol/L (3.5-5.5); Sodium, Blood 133 mmol/L (136-145)
== END | disposition home or self-care (01) ==
LOC: LAB SHORT 08:15 → LAB 08:15
PROVIDERS: Student in an Organized Health Care Education/Training Program
DX: E11.22 Type 2 diabetes mellitus with diabetic chronic kidney disease (principal); J44.9 Chronic obstructive pulmonary disease, unspecified; G89.29 Other chronic pain
CPT/HCPCS: 80048; 83036; 85025

== ENCOUNTER → 2021-08-09 | Outpatient (CLI) | payer MEDICARE, OTHER ==
[2021-08-09 20:25] LABS: Source, Urine Clean Catch
[2021-08-09 20:29] LABS: Appearance, Urine Clear (Clear); Bilirubin, Urine Neg (Neg); Blood, Urine Neg (Neg); Color, Urine Yellow (P-Yellow); Glucose Qualitative, Urine 2+ (Neg); Ketones, Urine Neg (Neg); Leukocyte Esterase, Urine 1+ (Neg); Nitrite, Urine Neg (Neg); Protein, Urine 2+ (Neg); Urobilinogen, Urine NORM (Normal)
[2021-08-09 20:57] LABS: Bacteria Rare /hpf; Red Blood Cells, Urine 0-2 /hpf (0-2); Squamous Epithelial Cells Rare /hpf (Few); White Blood Cells, Urine 0-2 /hpf (0-5)
== END | disposition home or self-care (01) ==
LOC: LAB SHORT 20:21 → LAB 20:21
PROVIDERS: Student in an Organized Health Care Education/Training Program
DX: N39.0 Urinary tract infection, site not specified (principal)
CPT/HCPCS: 81001; 87086

== ENCOUNTER → 2021-09-14 | Outpatient (CLI) | payer MEDICARE, OTHER ==
[2021-09-14 12:13] LABS: BASOPHILS ABSOLUTE AUTO 0.09 K/mm3 (0.00-0.23); BASOPHILS PERCENT AUTO 1 % (0-2); EOSINOPHILS ABSOLUTE AUTO 0.36 K/mm3 (0.00-0.68); EOSINOPHILS PERCENT AUTO 3 % (0-6); Hematocrit 39.8 % (33.0-51.0); Hemoglobin 12.8 g/dL (11.5-16.0); IMMATURE GRAN ABSOLUTE AUTO 0.17 K/mm3 (0.00-0.10); IMMATURE GRAN PERCENT AUTO 2 % (0-1); LYMPHOCYTES ABSOLUTE AUTO 3.55 K/mm3 (0.84-5.20); LYMPHOCYTES PERCENT AUTO 32 % (21-46); MONOCYTES ABSOLUTE AUTO 0.96 K/mm3 (0.16-1.47); MONOCYTES PERCENT AUTO 9 % (4-13); Mean Corpuscular HGB 29.8 pg (26.0-34.0); Mean Corpuscular HGB Conc 32.2 g/dL (31.5-36.5); Mean Corpuscular Volume 93 fL (80-100); Mean Platelet Volume 9.1 fL (9.1-12.4); NEUTROPHILS ABSOLUTE AUTO 6.04 K/mm3 (1.96-9.15); NEUTROPHILS PERCENT AUTO 54 % (41-73); Platelet Count 424 K/mm3 (150-400); RDW Standard Deviation 41.2 fL (35.1-46.3); Red Blood Cell Count 4.29 M/mm3 (3.80-5.20); White Blood Cell Count 11.17 K/mm3 (4.00-11.30)
[2021-09-14 12:37] LABS: Alanine Aminotransfer (ALT/SGP 30 U/L (12-78); Albumin, Blood 3.6 g/dL (3.4-5.0); Albumin/Globulin Ratio 0.9 (0.8-1.8); Alk Phos 77 U/L (50-136); Anion Gap 4 mmol/L (6-16); Aspartate Aminotrans (AST/SGOT 21 U/L (12-37); Bilirubin, Total 0.3 mg/dL (0.1-1.0); Blood Urea Nitrogen 24 mg/dL (8-24); Bun/Creatinine Ratio 40.5 (12.0-20.0); CO2, Blood 28 mmol/L (21-32); Calcium, Blood 9.7 mg/dL (8.5-10.1); Chloride, Blood 104 mmol/L (98-108); Creatinine, Blood 0.59 mg/dL (0.40-1.00); Globulin, Blood 4.1 g/dL (2.2-4.0); Glomerular Filtration Rate >60 (60-); Glucose, Blood 113 mg/dL (70-99); Potassium, Blood 4.5 mmol/L (3.5-5.5); Sodium, Blood 136 mmol/L (136-145); Total Protein, Blood 7.7 g/dL (6.4-8.2)
== END | disposition home or self-care (01) ==
LOC: LAB 09:12 → LAB SHORT 09:12
PROVIDERS: Student in an Organized Health Care Education/Training Program
DX: E11.22 Type 2 diabetes mellitus with diabetic chronic kidney disease (principal); N18.9 Chronic kidney disease, unspecified; J44.9 Chronic obstructive pulmonary disease, unspecified
CPT/HCPCS: 80053; 83036; 85025

== ENCOUNTER → 2021-09-23 | Outpatient (CLI) | payer MEDICARE, OTHER ==
[2021-09-23 13:25] LABS: BASOPHILS ABSOLUTE AUTO 0.12 K/mm3 (0.00-0.23); BASOPHILS PERCENT AUTO 1 % (0-2); EOSINOPHILS ABSOLUTE AUTO 0.39 K/mm3 (0.00-0.68); EOSINOPHILS PERCENT AUTO 3 % (0-6); Hematocrit 38.9 % (33.0-51.0); Hemoglobin 12.6 g/dL (11.5-16.0); IMMATURE GRAN ABSOLUTE AUTO 0.04 K/mm3 (0.00-0.10); IMMATURE GRAN PERCENT AUTO 0 % (0-1); LYMPHOCYTES ABSOLUTE AUTO 4.01 K/mm3 (0.84-5.20); LYMPHOCYTES PERCENT AUTO 33 % (21-46); MONOCYTES ABSOLUTE AUTO 0.76 K/mm3 (0.16-1.47); MONOCYTES PERCENT AUTO 6 % (4-13); Mean Corpuscular HGB 30.1 pg (26.0-34.0); Mean Corpuscular HGB Conc 32.4 g/dL (31.5-36.5); Mean Corpuscular Volume 93 fL (80-100); Mean Platelet Volume 9.1 fL (9.1-12.4); NEUTROPHILS ABSOLUTE AUTO 6.94 K/mm3 (1.96-9.15); NEUTROPHILS PERCENT AUTO 57 % (41-73); Platelet Count 407 K/mm3 (150-400); RDW Coefficient Variation 11.9 % (11.7-14.2); RDW Standard Deviation 40.2 fL (35.1-46.3); Red Blood Cell Count 4.19 M/mm3 (3.80-5.20); White Blood Cell Count 12.26 K/mm3 (4.00-11.30)
== END | disposition home or self-care (01) ==
LOC: LAB SHORT 11:46
PROVIDERS: Student in an Organized Health Care Education/Training Program
DX: R79.89 Other specified abnormal findings of blood chemistry (principal)
CPT/HCPCS: 85025

== ENCOUNTER → 2022-05-10 | Outpatient (CLI) | payer MEDICARE, OTHER ==
[2022-05-10 13:13] LABS: BASOPHILS PERCENT AUTO 1 % (0-2); EOSINOPHILS ABSOLUTE AUTO 0.35 K/mm3 (0.00-0.68); EOSINOPHILS PERCENT AUTO 4 % (0-6); Hematocrit 40.5 % (33.0-51.0); Hemoglobin 12.8 g/dL (11.5-16.0); IMMATURE GRAN ABSOLUTE AUTO 0.02 K/mm3 (0.00-0.10); IMMATURE GRAN PERCENT AUTO 0 % (0-1); LYMPHOCYTES ABSOLUTE AUTO 2.47 K/mm3 (0.84-5.20); LYMPHOCYTES PERCENT AUTO 27 % (21-46); MONOCYTES ABSOLUTE AUTO 0.88 K/mm3 (0.16-1.47); MONOCYTES PERCENT AUTO 10 % (4-13); Mean Corpuscular HGB 29.8 pg (26.0-34.0); Mean Corpuscular HGB Conc 31.6 g/dL (31.5-36.5); Mean Corpuscular Volume 94 fL (80-100); Mean Platelet Volume 9.6 fL (9.1-12.4); NEUTROPHILS PERCENT AUTO 59 % (41-73); Platelet Count 376 K/mm3 (150-400); RDW Coefficient Variation 11.7 % (11.7-14.2); White Blood Cell Count 9.22 K/mm3 (4.00-11.30)
[2022-05-10 13:20] LABS: Albumin, Blood 3.5 g/dL (3.4-5.0); Albumin/Globulin Ratio 0.9 (0.8-1.8); Bilirubin, Total 0.3 mg/dL (0.1-1.0); Calcium, Blood 9.7 mg/dL (8.5-10.1); Creatinine, Blood 0.61 mg/dL (0.40-1.00); Globulin, Blood 3.8 g/dL (2.2-4.0); Potassium, Blood 4.6 mmol/L (3.5-5.5); Total Protein, Blood 7.3 g/dL (6.4-8.2)
== END | disposition home or self-care (01) ==
LOC: LAB SHORT 08:30
PROVIDERS: Student in an Organized Health Care Education/Training Program
DX: E11.22 Type 2 diabetes mellitus with diabetic chronic kidney disease (principal); I12.9 Hypertensive chronic kidney disease with stage 1 through stage 4 chronic kidney disease, or unspecified chronic kidney disease; N18.9 Chronic kidney disease, unspecified; J44.9 Chronic obstructive pulmonary disease, unspecified
CPT/HCPCS: 80053; 83036; 85025

== ENCOUNTER → 2022-09-06 | Outpatient (CLI) | payer MEDICARE, OTHER ==
[2022-09-06 12:47] LABS: BASOPHILS ABSOLUTE AUTO 0.07 K/mm3 (0.00-0.23); BASOPHILS PERCENT AUTO 1 % (0-2); EOSINOPHILS ABSOLUTE AUTO 0.27 K/mm3 (0.00-0.68); EOSINOPHILS PERCENT AUTO 3 % (0-6); IMMATURE GRAN ABSOLUTE AUTO 0.02 K/mm3 (0.00-0.10); IMMATURE GRAN PERCENT AUTO 0 % (0-1); LYMPHOCYTES ABSOLUTE AUTO 2.14 K/mm3 (0.84-5.20); LYMPHOCYTES PERCENT AUTO 27 % (21-46); MONOCYTES ABSOLUTE AUTO 0.77 K/mm3 (0.16-1.47); MONOCYTES PERCENT AUTO 10 % (4-13); Mean Corpuscular HGB 29.5 pg (26.0-34.0); Mean Corpuscular HGB Conc 31.7 g/dL (31.5-36.5); Mean Corpuscular Volume 93 fL (80-100); Mean Platelet Volume 9.3 fL (9.1-12.4); NEUTROPHILS ABSOLUTE AUTO 4.74 K/mm3 (1.96-9.15); NEUTROPHILS PERCENT AUTO 59 % (41-73); Platelet Count 428 K/mm3 (150-400); RDW Coefficient Variation 11.9 % (11.7-14.2); RDW Standard Deviation 40.8 fL (35.1-46.3); Red Blood Cell Count 4.41 M/mm3 (3.80-5.20); White Blood Cell Count 8.01 K/mm3 (4.00-11.30)
[2022-09-06 13:24] LABS: Albumin, Blood 3.6 g/dL (3.4-5.0); Albumin/Globulin Ratio 0.9 (0.8-1.8); Bilirubin, Total 0.2 mg/dL (0.1-1.0); Bun/Creatinine Ratio 23.5 (12.0-20.0); Calcium, Blood 9.8 mg/dL (8.5-10.1); Creatinine, Blood 0.64 mg/dL (0.40-1.00); Globulin, Blood 4.2 g/dL (2.2-4.0); Potassium, Blood 4.4 mmol/L (3.5-5.5); Total Protein, Blood 7.8 g/dL (6.4-8.2)
== END ==
LOC: LAB SHORT 08:15 → LAB 08:15
PROVIDERS: Student in an Organized Health Care Education/Training Program
DX: E11.22 Type 2 diabetes mellitus with diabetic chronic kidney disease (principal); N18.9 Chronic kidney disease, unspecified; D63.1 Anemia in chronic kidney disease; I12.9 Hypertensive chronic kidney disease with stage 1 through stage 4 chronic kidney disease, or unspecified chronic kidney disease; D50.9 Iron deficiency anemia, unspecified; Z79.4 Long term (current) use of insulin
CPT/HCPCS: 80053; 83036; 85025

== ENCOUNTER → 2022-12-06 | Outpatient (CLI) | payer MEDICARE, OTHER ==
[2022-12-06 13:51] LABS: BASOPHILS ABSOLUTE AUTO 0.08 K/mm3 (0.00-0.23); BASOPHILS PERCENT AUTO 1 % (0-2); EOSINOPHILS ABSOLUTE AUTO 0.31 K/mm3 (0.00-0.68); EOSINOPHILS PERCENT AUTO 4 % (0-6); Hematocrit 38.4 % (33.0-51.0); Hemoglobin 12.6 g/dL (11.5-16.0); IMMATURE GRAN ABSOLUTE AUTO 0.02 K/mm3 (0.00-0.10); IMMATURE GRAN PERCENT AUTO 0 % (0-1); LYMPHOCYTES ABSOLUTE AUTO 2.35 K/mm3 (0.84-5.20); LYMPHOCYTES PERCENT AUTO 28 % (21-46); MONOCYTES ABSOLUTE AUTO 0.85 K/mm3 (0.16-1.47); MONOCYTES PERCENT AUTO 10 % (4-13); Mean Corpuscular HGB 30.1 pg (26.0-34.0); Mean Corpuscular HGB Conc 32.8 g/dL (31.5-36.5); Mean Corpuscular Volume 92 fL (80-100); Mean Platelet Volume 9.5 fL (9.1-12.4); NEUTROPHILS ABSOLUTE AUTO 4.81 K/mm3 (1.96-9.15); NEUTROPHILS PERCENT AUTO 57 % (41-73); Platelet Count 370 K/mm3 (150-400); RDW Coefficient Variation 11.7 % (11.7-14.2); RDW Standard Deviation 39.8 fL (35.1-46.3); Red Blood Cell Count 4.18 M/mm3 (3.80-5.20); White Blood Cell Count 8.42 K/mm3 (4.00-11.30)
[2022-12-06 17:15] LABS: Albumin, Blood 3.5 g/dL (3.4-5.0); Albumin/Globulin Ratio 0.9 (0.8-1.8); Bilirubin, Total 0.2 mg/dL (0.1-1.0); Bun/Creatinine Ratio 29.9 (12.0-20.0); Calcium, Blood 9.4 mg/dL (8.5-10.1); Creatinine, Blood 0.64 mg/dL (0.40-1.00); Globulin, Blood 3.8 g/dL (2.2-4.0); Potassium, Blood 4.7 mmol/L (3.5-5.5); Total Protein, Blood 7.3 g/dL (6.4-8.2)
== END | disposition home or self-care (01) ==
LOC: LAB SHORT 07:45 → LAB 07:45
PROVIDERS: Student in an Organized Health Care Education/Training Program
DX: I12.9 Hypertensive chronic kidney disease with stage 1 through stage 4 chronic kidney disease, or unspecified chronic kidney disease (principal); E11.22 Type 2 diabetes mellitus with diabetic chronic kidney disease; N18.9 Chronic kidney disease, unspecified
CPT/HCPCS: 80053; 83036; 85025

== ENCOUNTER 2023-09-27 00:13 | Inpatient (IN) | payer MEDICARE, OTHER ==
[~2023-09-27] VITALS: Ht 160 cm; Wt 77.9 kg
[2023-09-27] VITALS (39 sets, daily range): BP systolic 89–156; BP diastolic 51–132
[2023-09-27 00:48] LABS: BASOPHILS ABSOLUTE AUTO 0.05 K/mm3 (0.00-0.23); BASOPHILS PERCENT AUTO 0 % (0-2); EOSINOPHILS ABSOLUTE AUTO 0.03 K/mm3 (0.00-0.68); EOSINOPHILS PERCENT AUTO 0 % (0-6); Hematocrit 37.3 % (33.0-51.0); IMMATURE GRAN ABSOLUTE AUTO 0.12 K/mm3 (0.00-0.10); IMMATURE GRAN PERCENT AUTO 1 % (0-1); LYMPHOCYTES ABSOLUTE AUTO 0.53 K/mm3 (0.84-5.20); LYMPHOCYTES PERCENT AUTO 2 % (21-46); MONOCYTES ABSOLUTE AUTO 1.48 K/mm3 (0.16-1.47); MONOCYTES PERCENT AUTO 6 % (4-13); Mean Corpuscular HGB 29.2 pg (26.0-34.0); Mean Corpuscular HGB Conc 32.2 g/dL (31.5-36.5); Mean Corpuscular Volume 91 fL (80-100); Mean Platelet Volume 9.2 fL (9.1-12.4); NEUTROPHILS PERCENT AUTO 91 % (41-73); Platelet Count 470 K/mm3 (150-400); RDW Coefficient Variation 11.9 % (11.7-14.2); Red Blood Cell Count 4.11 M/mm3 (3.80-5.20); White Blood Cell Count 23.51 K/mm3 (4.00-11.30)
[2023-09-27 01:10] LABS: D-Dimer, Quantitative 3.25 mg/L FEU (0.00-0.52); Prothrombin Time Results 10.5 Sec (9.7-11.5)
[2023-09-27 01:16] LABS: Albumin, Blood 2.8 g/dL (3.4-5.0); Albumin/Globulin Ratio 0.5 (0.8-1.8); Bilirubin, Total 0.4 mg/dL (0.1-1.0); Bun/Creatinine Ratio 40.1 (12.0-20.0); Calcium, Blood 9.4 mg/dL (8.5-10.1); Creatinine, Blood 0.92 mg/dL (0.40-1.00); Globulin, Blood 5.8 g/dL (2.2-4.0); Magnesium, Blood 1.6 mg/dL (1.6-2.4); Phosphorus, Blood 2.5 mg/dL (2.5-4.9); Potassium, Blood 4.7 mmol/L (3.5-5.5); Thyroid Stimulating Hormone 0.587 uIU/mL (0.360-4.800); Total Protein, Blood 8.6 g/dL (6.4-8.2)
[2023-09-27 01:28] LABS: Base Excess Venous -0.3 mmol/L; Bicarbonate Venous 23.4 mmol/L (24.0-30.0); PCO2 Venous 58.9 mmHg (38-42); pH Blood Venous 7.26 (7.34-7.37)
[2023-09-27 02:07] LABS: Influenza A, PCR NEGATIVE (NEGATIVE); Influenza B, PCR NEGATIVE (NEGATIVE); Resp Syncytial Virus, PCR NEGATIVE (NEGATIVE); SARS-Cov-2 (COVID-19) PCR, MMC NEGATIVE (NEGATIVE)
[2023-09-27] MEDS ORDERED: Norco 5-325 Ta1 EACH PO (03:13)
[2023-09-27] MEDS ORDERED: BREO ELLIPTA 11 EAC1 INH (03:13)
[2023-09-27] MEDS ORDERED: ACET325 PO (03:13)
[2023-09-27] MEDS ORDERED: PERIDEX15 ML MM (03:14)
[2023-09-27] MEDS ORDERED: DOC250 PO (03:15)
[2023-09-27] MEDS ORDERED: GABA300 PO (03:15)
[2023-09-27] MEDS ORDERED: INSULANI SC (03:16)
[2023-09-27] MEDS ORDERED: LOSA25 PO (03:17)
[2023-09-27] MEDS ORDERED: METF500 PO (03:17)
[2023-09-27] MEDS ORDERED: LORA10ER PO (03:17)
[2023-09-27] MEDS ORDERED: OMEP20ER PO (03:18)
[2023-09-27] MEDS ORDERED: RISP.25 PO (03:18)
[2023-09-27] MEDS ORDERED: METO50 PO (03:18)
[2023-09-27] MEDS ORDERED: SENN187 PO (03:21)
[2023-09-27] MEDS ORDERED: ALDACTONE25 MG PO (03:21)
[2023-09-27] MEDS ORDERED: VENL75ER PO (03:21)
[2023-09-27] MEDS ORDERED: VITAMIN D33000 UNIT PO (03:22)
[2023-09-27] MEDS ORDERED: ARTIFICIAL TEAR15 M2 OP (03:23)
[2023-09-27] MEDS ORDERED: COMBIVENT RESPIM4 G1 INH (03:24)
[2023-09-27] MEDS ORDERED: IBUP400 PO (03:25)
[2023-09-27] MEDS ORDERED: Cyclobenzaprine5 MG PO (03:25)
[2023-09-27 04:19] LABS: Anti-Xa UFH, PHA Monitoring <0.10 IU/mL
--- NOTE | 2023-09-27 07:42 | NUR ---
Assumed care of pt at 0715. Bedside report recieved from SENIOR COMPLIANCE OFFICERCHRIS Morgan. Pt alert, on BiPAP 14/8 and 40% FiO2, rate 14. SpO2 97%. Actual RR 25, tidal volumes 475-500 mL. States she is hot, provided with fan. Cardizem at 20 mg/hr, presently being decreased to 5 mg/hr. HR 95-110. BP low-normal.
[2023-09-27 09:05] LABS: Hematocrit 30.5 % (33.0-51.0); Hemoglobin 9.7 g/dL (11.5-16.0); Mean Corpuscular HGB 29.5 pg (26.0-34.0); Mean Corpuscular HGB Conc 31.8 g/dL (31.5-36.5); Mean Corpuscular Volume 93 fL (80-100); Mean Platelet Volume 9.6 fL (9.1-12.4); Platelet Count 406 K/mm3 (150-400); RDW Coefficient Variation 12.1 % (11.7-14.2); RDW Standard Deviation 41.4 fL (35.1-46.3); Red Blood Cell Count 3.29 M/mm3 (3.80-5.20); White Blood Cell Count 26.91 K/mm3 (4.00-11.30)
[2023-09-27 09:31] LABS: BAND PERCENT MAN 2 % (0-8); BASOPHILS ABSOLUTE MAN 0.26 K/mm3 (0.00-0.23); BASOPHILS PERCENT MAN 1 % (0-2); EOSINOPHILS PERCENT MAN 0 % (0-6); LYMPHOCYTES ABSOLUTE MAN 0.53 K/mm3 (0.84-5.20); LYMPHOCYTES PERCENT MAN 2 % (21-46); METAMYELOCYTE ABSOLUTE MAN 0.26 K/mm3 (0.00-0.00); METAMYELOCYTE PERCENT MAN 1 % (0-0); MONOCYTES ABSOLUTE MAN 2.42 K/mm3 (0.16-1.47); MONOCYTES PERCENT MAN 9 % (4-13); NEUTROPHILS ABSOLUTE MAN 23.41 K/mm3 (1.96-9.15); SEG NEUTROPHILS PERCENT MAN 85 % (41-73); TOTAL CELLS COUNTED 100
[2023-09-27 09:33] LABS: Bun/Creatinine Ratio 39.7 (12.0-20.0); Calcium, Blood 8.2 mg/dL (8.5-10.1); Creatinine, Blood 0.83 mg/dL (0.40-1.00); Potassium, Blood 4.6 mmol/L (3.5-5.5)
--- NOTE | 2023-09-27 10:15 | NUR ---
Gave patient a break from the BiPAP and performed oral care with suction swab. Pt eager to come off BiPAP. Placed on 2 LPM NC. Pt reported she couldn't breathe and requested HOB elevated. Pt highly anxious and repeating that she cannot breathe. BiPAP placed back on patient. Call placed to Dr Gonzalez to notify that PO xarelto could not be given. Heparin drip reordered. Call placed to pharmacy to notify. There had been no interruption in heparin drip; it was continued until PO xarelto could be given. Despite BiPAP being back on patient, pt continued to report that she couldn't breath. RR high 20s and tidal volumes 600s. Lungs dim t/o. Dr Gonzalez notified. Provider ordered dilaudid for air hunger.
--- NOTE | 2023-09-27 11:48 | NUR ---
Pt rested well after receiving 0.5 mg dilaudid. At 1130, pt awoke back up and continued to report difficulty breathing. Noted variable RR from 30-45 breaths per minute with variable tidal volumes, averaging high 200s-low 300s. Notified RT Red who responded to provide breathing tx. Dr Gonzalez responded to bedside as well. Discussed changes with provider, who increased dilaudid dosage and authorized additional 0.5 mg to be given now.
--- NOTE | 2023-09-27 15:18 | NUR ---
Patient resting well with dilaudid. Break given from BiPAP for approx 5 minutes. Tolerated oral care and sips of water with spoon. Pt not oriented to location or situation. Placed back on BiPAP per pt request "you should probably put that oxygen back on me".
--- NOTE | 2023-09-27 17:03 | NUR ---
Spiritual Care | Nurse/Pt. Request Pt. is awake in her bed when she welcomed my visit. Nurse Carmen inroduced me to the Pt. Communicated to Pt. with her BiPap on. Pt. is pleasant. Facilitated a life review, and listened with interest, empathy, and a calming presence. Pt displayed evidence of some anxiety regarding her health but verbalized that she "wants to get better." Sought to normalize the Pt. experience and considered matters of sandy and belief. Pt. displayed evidence of interest and trust in our visit. Prayed with Pt. Pt. verbalized gratitude for the spiritual care visit and welcomed this mold yard worker to return.
--- NOTE | 2023-09-27 17:43 | NUR ---
SUMMARY Neuro/Musc/ADLs: Initially, pt was unsure of where she was at, asking "why am I in this house". Pt reoriented and is now A&O x 2-3. Moves all extremities with equal strength and range of motion. Breaks given from BiPAP Q4H. Pt tolerating breaks more now than she did previously. Repositions independently in bed with preference for L side laying position and elevated head of bed. Per pt's RN at [facility], patient prefers to self-propel in wheelchair at baseline and is capable of walking. Pt bedrest today due to frail respiratory status. Resp: Lungs clear diminshed t/o. Remains on BiPAP continuously with intermittent breaks. 14/8 and 30%. SpO2 90% or greater. Uses 3 LPM NC during breaks, which is pt's baseline use. Pt is a current everyday smoker, reportedly smokes 1/2 PPD. 7 mg nicotine patch ordered by Dr Gonzalez. Cardiac: Afib per monitor, on 10 mg/hr cardizem. Rate low 100s, BP stable. GI: NPO today, no BM : Good urine output into purewick Skin: Unchanged from initial assessment. Psychosocial: Labile mood. Consistently anxious. Often irritable. Pt requested visit from chief of planning, she met with Meliton. Update given to pt's sister Kellen. Encouraged pt to talk to her sister, but pt refused.
[2023-09-28] VITALS (45 sets, daily range): BP systolic 86–147; BP diastolic 54–97
[2023-09-28 02:25] LABS: Base Excess Venous -2.9 mmol/L; Bicarbonate Venous 21.4 mmol/L (24.0-30.0); PCO2 Venous 59.2 mmHg (38-42); pH Blood Venous 7.23 (7.34-7.37)
[2023-09-28 02:26] LABS: BASOPHILS ABSOLUTE AUTO 0.06 K/mm3 (0.00-0.23); BASOPHILS PERCENT AUTO 0 % (0-2); EOSINOPHILS ABSOLUTE AUTO 0.06 K/mm3 (0.00-0.68); EOSINOPHILS PERCENT AUTO 0 % (0-6); Hematocrit 32.3 % (33.0-51.0); IMMATURE GRAN ABSOLUTE AUTO 0.22 K/mm3 (0.00-0.10); IMMATURE GRAN PERCENT AUTO 1 % (0-1); LYMPHOCYTES ABSOLUTE AUTO 1.88 K/mm3 (0.84-5.20); LYMPHOCYTES PERCENT AUTO 9 % (21-46); MONOCYTES ABSOLUTE AUTO 1.56 K/mm3 (0.16-1.47); MONOCYTES PERCENT AUTO 7 % (4-13); Mean Corpuscular HGB 29.5 pg (26.0-34.0); Mean Corpuscular Volume 95 fL (80-100); Mean Platelet Volume 8.8 fL (9.1-12.4); NEUTROPHILS ABSOLUTE AUTO 17.53 K/mm3 (1.96-9.15); NEUTROPHILS PERCENT AUTO 82 % (41-73); Platelet Count 424 K/mm3 (150-400); RDW Coefficient Variation 12.5 % (11.7-14.2); RDW Standard Deviation 43.8 fL (35.1-46.3); Red Blood Cell Count 3.39 M/mm3 (3.80-5.20); White Blood Cell Count 21.31 K/mm3 (4.00-11.30)
[2023-09-28 02:43] LABS: Bun/Creatinine Ratio 30.8 (12.0-20.0); Calcium, Blood 8.9 mg/dL (8.5-10.1); Creatinine, Blood 0.81 mg/dL (0.40-1.00)
--- NOTE | 2023-09-28 02:53 | NUR ---
PHYSICIAN CONTACT CALL PLACED TO DR. SHAFFER REGARDING CRITICAL LAB VALUE. NOTIFIED DR. SHAFFER OF CRITICAL PH. ALSO DISCUSSED PT'S RESPIRATORY STATUS W/ RR FLUCTUATING FROM 14 TO 30'S. PT VISIBLY ANXIOUS AND AGITATED W/ INCREASED RR; DILAUDID HAS BEEN ADMINISTERED FOR AIR HUNGER PER ORDERS AND EMAR THIS SHIFT. DR. SHAFFER STATES HE WILL ASSESS THE PT AND CURRENT ORDERS. NO NEW ORDERS RECEIVED AT TIME OF CONTACT.
--- NOTE | 2023-09-28 05:50 | NUR ---
END OF SHIFT NOTE PT A&O X2-4, FULLY ORIENTED AT TIMES BUT FORGETS WHERE SHE IS AT AND WHY SHE IS IN THE HOSPITAL AT OTHER TIMES. PT VISIBLY ANXIOUS AT TIMES, SHOUTING "DON'T LEAVE ME" AND "I'M GOING TO LAY HERE AND ." PT COUNSELED ON DEEP BREATHING AND RELAXATION TECHNIQUES. ATARAX ADMINISTERED THIS AM PER EMAR FOR ANXIETY. TOLERATED BIPAP WELL T/O THE NIGHT W/ 1 BREAK ON NC. BIPAP SETTINGS 18/8 AND 30% WITH SPO2 >90%. HR 90-100'S, OCCASIONALLY INCREASES TO 110'S. AFIB ON TELE. CARDIZEM INFUSING AT 10 MG/HR PER EMAR. BP STABLE. PUREWICK IN PLACE DRAINING YELLOW URINE. NO BM THIS SHIFT. PT REPOSITIONED Q2HR T/O SHIFT AND PRN FOR COMFORT. TOLERATING ORAL MEDICATIONS W/ SMALL SIPS OF WATER. NO OTHER EVENTS, WILL REPORT TO ONCOMING RN. CALL LIGHT WITHIN REACH, BED IN LOWEST POSITION. BED ALARM ON.
--- NOTE | 2023-09-28 09:28 | NUR ---
AM NOTE: UPON SHIFT START PATIENT YELLING OUT "I CAN'T BREATHE, HELP ME". THIS RN AND NOC SHIFT RN AT BEDSIDE FOR REPORT. PATIENT ABLE TO TELL ME NAME, , AND PLACE. DENIES N/T. PERRLA. ABLE TO MOVE ALL EXTREMITIES EQUALLY. OVERALL WEAK. FOLLOWING SIMPLE COMMANDS. BEDREST WITH Q2 TURNING AND NEEDED. PATIENT ABLE TO HELP WITH ROLLING. TELE SHOWING AFIB WITH HR 110'S CARDIZEM GTT INFUSING. WAGE AND HOUR INVESTIGATOR UPDATED THIS AM. BP STABLE. DENIES CHEST PAIN/PRESSURE. HEPARIN GTT INFUSING. PPP. PATIENT WEARING BIPAP 18/8 AT 30%FIO2, SATING MID 90'S. ABLE TO TAKE SMALL BREAKS THIS MORNING TO TAKE ORAL MEDICATION. PATIENT ON 6L NASAL CANNULA FOR BIPAP BREAKS. WORK OF BREATHING POOR AND PATIENT GIVEN IV DILAUDID THIS AM PER EMAR FOR AIR HUNGER. PATIENT WORK OF BREATHING AND ANXIETY IMPROVED WITH IV DILAUDID FOR SHORT PERIOD OF TIME. RT CALLED THIS AM AND BIPAP SETTING ADJUSTED AFTER LAST VBG RESULTS. ATTENDS AND PURWICK IN PLACE DRAINING CLEAR/YELLOW URINE. BOWEL TONES PRESENT. PATIENT NOT ABLE TO BE OFF BIPAP LONG ENOUGH THIS AM TO EAT BREAKFAST. ABX INFUSING. DR. SOUSA BY THIS AM, NO NEW ORDERS FOR THIS RN TO PLACE. CALL LIGHT IN REACH. PATIENT RESTING AT THIS TIME AND CALM. ACHS BLOOD SUGARS.
--- NOTE | 2023-09-28 10:46 | NUR ---
HR SUSTAINING 80'S CARDIZEM TITRATED OFF AT THIS TIME.
--- NOTE | 2023-09-28 11:56 | NUR ---
PATIENT ABLE TO COME OFF BIPAP MAXIMUM 3-5 MIN BEFORE NEEDING TO BE BACK ON DUE TO WORK OF BREATHING. WHEN OFF BIPAP PATIENT NOTED TO HAVE RATTLING/COARSE BREATH SOUNDS. THIS RN NOT ABLE TO SUCTION ANY SPUTUM OUT. HR MAINTAINING 70-90'S. BP 94/60(70). THIS RN DISCUSSES CODE STATUS WITH PATIENT AND EDUCATES ON FULL CODE VS DNI/DNR/LIMITED. PATIENT STATES SHE WOULD WANT TO BE INTUBATED. DR. SOUSA CALLED AND THIS RN DISCUSSED THE ABOVE DETAILS. NEW ORDERS FOR 1 VIEW STAT CHEST XRAY. ORDERS IN PLACE.
--- NOTE | 2023-09-28 12:11 | NUR ---
CHEST XRAY BEING DONE AT THIS TIME
--- NOTE | 2023-09-28 12:29 | NUR ---
THIS RN PLACED CALL TO SISTER BINTA ([phone]) AND PROVIDED UPDATE. BINTA EXPRESSES BEING THE ONLY FAMILY MEMBER INVOLVED IN [facility]. BINTA ALSO EXPRESSES THAT PATIENT HAS DAUGHTERS BUT ARE UNABLE TO BE INVOLVED AT THIS TIME.
[2023-09-28 13:27] LABS: Bicarbonate Venous 22.3 mmol/L (24.0-30.0)
[2023-09-28 13:28] LABS: pH Blood Venous 7.26 (7.34-7.37)
--- NOTE | 2023-09-28 13:33 | NUR ---
VBG RESULTS CALLED INTO DR. SOUSA. RESPIRATORY IN TO ADJUST BIPAP SETTINGS. PLAN TO REDRAW VBG AT 1500.
[2023-09-28 15:23] LABS: Base Excess Venous -1.2 mmol/L; Bicarbonate Venous 22.5 mmol/L (24.0-30.0); PCO2 Venous 58.5 mmHg (38-42)
[2023-09-28 15:24] LABS: pH Blood Venous 7.26 (7.34-7.37)
--- NOTE | 2023-09-28 16:30 | NUR ---
ARRIVAL TO ICU PT TRANSFERRED TO ICU 2 AT THIS TIME FROM PCU. SHE IS ON BIPAP 22/8/25%. SPO2 >95%. PT TOLERATING WELL. SHE IS ALERT AND ORIENTED ALTHOUGH DROWSY. PT ASSISTS WITH REPOSITIONING AND CARE. LUNGS ARE CLEAR/DIM WITH EXP WHEEZES. AFIB ON MONITOR WITH RATE 100S-120S. SBP 120S. PUREWICK IN PLACE. BED IN LOW POSITION AND CALL LIGHT WITHIN REACH.
--- NOTE | 2023-09-28 16:38 | NUR ---
TRANSFER TO ICU AT 1635: REPORTED OFF TO ADELFO. SEE PREVIOUS NOTES FOR UPDATES. PATIENT VITALS REMAINS STABLE ON BIPAP AT 22/8 AND 25% FIO2. PATIENT WAKING TO VOICE, PUPILS REMAINS EQUAL AND REACTIVE. ABLE TO FOLLOW SIMPLE COMMANDS. ORAL CARE DONE Q4. SISTER BINTA CALLED AND UPDATED BY THIS RN ON TRANSFER.
--- NOTE | 2023-09-28 18:17 | NUR ---
SUMMARY PT REMAINS ON BIPAP //%. SHE IS BECOMING ANXIOUS AND C/O NOSE DISCOMFORT. GEL PAD APPLIED UNDER BIPAP MASK WITHOUT RELIEF. RT NOTIFIED AND PLAN TO TRY FULL FACE MASK. DR NICHOLS NOTIFIED, PLAN TO START PRECEDEX. SHE IS ALERT AND ORIENTED. SHE DOES NOT USE HER CALL LIGHT BUT DOES CALL OUT. PT CONTINUES TO ASK FOR WATER, PROVIDED EDUCATION REGARDING NPO STATUS. AFIB ON MONITOR WITH RATE IN 100S-120S. SBP 120S. PUREWICK IN PLACE. FRIEND AT BEDSIDE. BED IN LOW POSITION, CALL LIGHT WITHIN REACH.
--- NOTE | 2023-09-28 18:39 | NUR ---
BIPAP ALARMING FOR HIGH TV. TV 1700S-2000S. RR 27-33. PRECEDEX INFUSING AT 0.5MCG/KG/MIN. RT NOTIFIED AND RT STS SHE WILL COME TO ROOM.
[2023-09-28 22:01] LABS: Base Excess Venous 0.3 mmol/L; Bicarbonate Venous 24.4 mmol/L (24.0-30.0); PCO2 Venous 50.2 mmHg (38-42); pH Blood Venous 7.33 (7.34-7.37)
[2023-09-29] VITALS (85 sets, daily range): BP systolic 81–174; BP diastolic 47–163
[2023-09-29 03:19] LABS: Base Excess Venous 0.3 mmol/L; Bicarbonate Venous 24.6 mmol/L (24.0-30.0); PCO2 Venous 40.4 mmHg (38-42)
[2023-09-29 03:26] LABS: BASOPHILS ABSOLUTE AUTO 0.06 K/mm3 (0.00-0.23); BASOPHILS PERCENT AUTO 0 % (0-2); EOSINOPHILS PERCENT AUTO 1 % (0-6); Hematocrit 31.6 % (33.0-51.0); Hemoglobin 9.5 g/dL (11.5-16.0); IMMATURE GRAN ABSOLUTE AUTO 0.17 K/mm3 (0.00-0.10); IMMATURE GRAN PERCENT AUTO 1 % (0-1); LYMPHOCYTES ABSOLUTE AUTO 1.68 K/mm3 (0.84-5.20); LYMPHOCYTES PERCENT AUTO 12 % (21-46); MONOCYTES ABSOLUTE AUTO 1.29 K/mm3 (0.16-1.47); MONOCYTES PERCENT AUTO 9 % (4-13); Mean Corpuscular HGB Conc 30.1 g/dL (31.5-36.5); Mean Corpuscular Volume 96 fL (80-100); Mean Platelet Volume 9.1 fL (9.1-12.4); NEUTROPHILS ABSOLUTE AUTO 11.12 K/mm3 (1.96-9.15); NEUTROPHILS PERCENT AUTO 77 % (41-73); Platelet Count 458 K/mm3 (150-400); RDW Coefficient Variation 12.7 % (11.7-14.2); RDW Standard Deviation 44.7 fL (35.1-46.3); Red Blood Cell Count 3.28 M/mm3 (3.80-5.20); White Blood Cell Count 14.52 K/mm3 (4.00-11.30)
[2023-09-29 03:43] LABS: Bun/Creatinine Ratio 27.2 (12.0-20.0); Calcium, Blood 9.1 mg/dL (8.5-10.1); Creatinine, Blood 0.77 mg/dL (0.40-1.00); Potassium, Blood 5.1 mmol/L (3.5-5.5)
[2023-09-29 05:29] LABS: PCO2 Arterial 49.6 mmHg (35-45); PO2 Arterial 91.3 mmHg (80-100); pH Blood Arterial 7.34 (7.35-7.45)
--- NOTE | 2023-09-29 05:38 | NUR ---
SHIFT SUMMARY PT A/O X4. PT YELLING OUT AND ANXIOUS. PT EDUCATED ON USING CALL LIGHT VS YELLING. PT CONTINUES TO YELL OUT FOR NEEDS. PRECEDEX GTT INFUSING, SEE FLOWSHEET FOR TITRATIONS. VSS. BP SOFT AT TIMES. AFIB RATE 100-110'S WHEN SLEEPING AND UP TO 140'S WHEN AWAKE. ON BIPAP T/O NIGHT. CURRENT SETTINGS 18/10/30%. PT STRICT NPO. PM MEDS HELD. THIS AM, PT DROWSY BUT ABLE TO ANSWER QUESTIONS AND FOLLOWS COMMANDS. FALLS ASLEEP QUICKLY, BUT AROUSEABLE AND ANSWERING QUESTIONS. PT HAVING LOW TIDAL VOLUMES THIS AM AND RT IN TO INCREASE BIPAP SETTINGS. SEE ABOVE. PT ALSO C/O BACK PAIN. CALL TO HOSP AND ORDER RECEIVED. SANTIAGO IN PLACE AND CHANGED THIS SHIFT. WILL REPORT OFF TO ONCOMING RN.
--- NOTE | 2023-09-29 07:05 | NUR ---
ASSUMPTION OF CARE PT RECEIVING PRECEDEX 0.7MCG/KG/HR. SHE REMAINS ON BIPAP WITH SETTINGS 14/10/30%. TV 500S-600S, RR 17-24. PT CALLING OUT AND MOANING WITH EYES CLOSED. WHEN STAFF ENTERS ROOM PT BECOMES MORE ANXIOUS AND CONTINUOUSLY CALLING OUT. PT PROVIDED THERAPEUTIC CONVERSATION AND ASSURANCE BUT PT CONTINUES TO CALL OUT. LUNGS ARE DIM WITH EXP WHEEZE. SPO2 >95%. AFIB ON MONITOR WITH RATE 100S-130S. SBP 120S. PUREWICK IN PLACE. PT PROVIDED COOL WASHCLOTH FOR FOREHEAD, FAN AND BLANKETS REMOVED PER REQUEST. BED IN LOW POSITION AND CALL LIGHT WITHIN REACH. SEE SHIFT ASSESSMENT.
--- NOTE | 2023-09-29 07:50 | NUR ---
UPDATE PT VERY ANXIOUS, CALLING OUT. HR INCREASING AND MAINTAINING 160S-190S. PT HYPERTENSIVE WITH SBP 160S, DBP >100. BIPAP MASK REMAINS IN PLACE, 18/10/30%. RR 30S-40S. TV 600S-700S. SPO2 >93%. PT BOOSTED IN BED, HEAD OF BED IN HIGH FOWLERS POSITION. LUNGS ARE DIM WITH EXP WHEEZE. DR PEREZ NOTIFIED, ORDERS RECEIVED. MEDICATED PER EMAR. HR 120S-140S. SBP 100S-110S, MAP >65. RR 20S, TV 500S. PT APPEARS MORE COMFORTABLE, OCCASIONALLY CALLING OUT.
--- NOTE | 2023-09-29 10:12 | NUR ---
CLINICAL SITTER AT BEDSIDE
--- NOTE | 2023-09-29 14:16 | NUR ---
UPDATE PT VERY ANXIOUS, RESTLESS IN BED. HR INCREASED TO 150S-180S, SBP >170 AND DBP >100. PT REPEATEDLY STATING "I CAN'T BREATHE" AND "I'M TOO HOT". PT TACHYPNEIC, TV 600S, SPO2 >93%. ORAL CARE PROVIDED. MEDICATED PER EMAR. COOL WASH CLOTHS APPLIED, BLANKETS REMOVED, AND 2 FANS ON. HR 110S-130S, BP IMPROVING. RR 18-22, TV 500S, SPO2 >95%.
--- NOTE | 2023-09-29 17:47 | NUR ---
SHIFT SUMMARY PT RECEIVING PRECEDEX 0.7MCG/KG/HR AND NS 50ML/HR. PT HAS HAD MULTIPLE EPISODES OF ANXIETY THROUGHOUT THE DAY. SHE IS A&OX3. BIPAP SETTINGS 18//30% WITH TV 500S. SHE REMAINS NPO, ORAL CARE PROVIDED MULTIPLE TIMES. AFIB ON MONITOR WITH RATE IN 100S-130S. BP STABLE WITH MAP >65. PUREWICK IN PLACE. BED IN LOW POSITION, CALL LIGHT WITHIN REACH.
--- NOTE | 2023-09-29 21:10 | NUR ---
ASSUMED CARE ASSUMED CARE AT 1900. PT ALERT, WHEN ASKED ORIENTATION QUESTIONS, PT STATES "I CANT ANSWER THAT NOW". PT IS ASKING "WHERE AM I" AND "WHAT IS GOING ON". PT EDUCATED BUT THEN ASKED SAME QUESTIONS AGAIN. PT VERY ANXIOUS AT BEGINNING OF SHIFT, TENSE AND HOLDING ONTO THE SIDE RAILS. HR 190'S, RR 40'S, AND SBP 160'S. OTHER VSS. PT YELLING OUT AND PULLING ON BIPAP. CARDIZEM AND PRECEDEX GTT INFUSING. SEE FLOWSHEET FOR TITRATIONS. PT HR NOW DOWN TO 90-100'S AFIB. BIPAP 18/10/30%, SPO2 GREATER THEN 92%. POWERGLIDE PLACED IN ABBIE. PUREWICK IN PLACE.
[2023-09-30] VITALS (91 sets, daily range): BP systolic 110–180; BP diastolic 59–142
[2023-09-30 03:30] LABS: BASOPHILS ABSOLUTE AUTO 0.02 K/mm3 (0.00-0.23); BASOPHILS PERCENT AUTO 0 % (0-2); EOSINOPHILS PERCENT AUTO 0 % (0-6); Hematocrit 30.5 % (33.0-51.0); Hemoglobin 9.5 g/dL (11.5-16.0); IMMATURE GRAN ABSOLUTE AUTO 0.18 K/mm3 (0.00-0.10); IMMATURE GRAN PERCENT AUTO 1 % (0-1); LYMPHOCYTES ABSOLUTE AUTO 0.69 K/mm3 (0.84-5.20); LYMPHOCYTES PERCENT AUTO 5 % (21-46); MONOCYTES ABSOLUTE AUTO 0.17 K/mm3 (0.16-1.47); MONOCYTES PERCENT AUTO 1 % (4-13); Mean Corpuscular HGB Conc 31.1 g/dL (31.5-36.5); Mean Corpuscular Volume 93 fL (80-100); Mean Platelet Volume 8.8 fL (9.1-12.4); NEUTROPHILS ABSOLUTE AUTO 12.51 K/mm3 (1.96-9.15); NEUTROPHILS PERCENT AUTO 92 % (41-73); Platelet Count 537 K/mm3 (150-400); RDW Coefficient Variation 12.5 % (11.7-14.2); Red Blood Cell Count 3.28 M/mm3 (3.80-5.20); White Blood Cell Count 13.57 K/mm3 (4.00-11.30)
[2023-09-30 03:50] LABS: Bun/Creatinine Ratio 34.1 (12.0-20.0); Calcium, Blood 9.1 mg/dL (8.5-10.1); Creatinine, Blood 0.65 mg/dL (0.40-1.00); Potassium, Blood 5.1 mmol/L (3.5-5.5)
[2023-09-30 04:01] LABS: Base Excess Venous -0.6 mmol/L; Bicarbonate Venous 23.7 mmol/L (24.0-30.0); PCO2 Venous 48.8 mmHg (38-42); pH Blood Venous 7.33 (7.34-7.37)
--- NOTE | 2023-09-30 06:23 | NUR ---
SHIFT SUMMARY NO ACUTE EVENTS T/O NIGHT. PRECEDEX GTT REMAINS INFUSING. CARDIZEM RESTARTED APPROX 0230 D/T HR SUSTAINING IN 130-140'S. HR NOW 100-110'S. OTHER VSS. PT ANXIOUS AT TIMES T/O NIGHT. TAKING BIPAP OFF, YELLING OUT AND STATING "I'M DYING, HELP ME". REASSURANCE GIVEN, AND PT ABLE TO CALM SELF. DID C/O PAIN "EVERYWHERE" AND MEDICATED PER EMAR. PT WORE BIPAP T/O NIGHT. NO SETTING CHANGES. PUREWICK IN PLACE. CALL LIGHT IN REACH. WILL REPORT OFF TO ONCOMING RN.
--- NOTE | 2023-09-30 07:00 | NUR ---
ASSUMPTION OF CARE PT RECEIVING PRECEDEX 0.7MCG/KG/HR, CARDIZEM 10MG/HR, AND NS 50ML/HR. SHE REMAINS ON BIPAP 18/10/30%. RR 17-22, TV 500S. PT BECOMES ANXIOUS DURING BEDSIDE REPORT, REPEATEDLY CALLING OUT AND BECOMING RESTLESS. PT BELIEVES SPO2 PROBE ON FINGER IS "BURNING" HER AND STATING "I CAN'T BREATHE". AFIB ON MONITOR WITH RATE IN 100S-130S. SBP 170S DURING THIS TIME. PT MEDICATED PER EMAR. PUREWICK IN PLACE. CALL LIGHT WITHIN REACH.
--- NOTE | 2023-09-30 10:45 | NUR ---
UPDATE PT HAS PULLED BIPAP MASK OFF SEVERAL TIMES. CLINICAL SITTER NOW AT BEDSIDE.
--- NOTE | 2023-09-30 15:13 | NUR ---
UPDATE/CALL TO [facility] PRECEDEX TITRATED TO 0.5MCG/KG/HR. PT MORE ALERT, ABLE TO ANSWER QUESTIONS APPROPRIATELY. PT REPEATEDLY ASKING FOR WATER DESPITE ORAL CARE. ATTEMPTED TRIAL OFF BIPAP AND BEDSIDE SWALLOW. PT PLACED ON OXYMIZER AT 10L, PT TOLERATED WELL. TITRATED DOWN TO 6L. RR 16-23, SPO2 >95%. PT STS OXYMIZER IS UNCOMFORTABLE AND PLACED ON 3L NC WHICH IS PT'S BASELINE. PT BEGINS SAYING "I CAN'T BREATHE" AND PLACED BACK ON OXYMIZER. PT CALMS WITH THERAPEUTIC CONVERSATION. PRECEDEX TITRATED TO 0.3MCG/KG/HR. CALL PLACED TO [facility]. PER STAFF, PT BASELINE IS A&OX4 WITH FREQUENT EPISODES OF ANXIETY AND ON 3L NC. SHE ALSO REPORTEDLY GOES OUTSIDE TO SMOKE CIGARETTES AND THEN C/O DYSPNEA AND ASKS FOR MEDICATION. PT BECOMING ANXIOUS, MEDICATED PER EMAR. HR INCREASING AND MAINTAINING 180S-190S. CARDIZEM INCREASED TO 15MG/HR. PRECEDEX TITRATED TO 0.7MCG/KG/HR. PT DIAPHORETIC AND ANXIOUS. DR PEREZ AT BEDSIDE. PT PLACED BACK ON BIPAP 18/10/30%. CLINICAL SITTER REMAINS AT BEDSIDE.
--- NOTE | 2023-09-30 17:30 | NUR ---
SHIFT SUMMARY PT RECEIVING PRECEDEX 0.7MCG/KG/HR, CARDIZEM 10MG/HR AND NS 50ML/HR. SHE REMAISN ON BIPAP 18/10/30%. RR 15-24, TV 400S-500S. MULTIPLE SMALL BREAKS FROM MASK FOR ORAL CARE. PT IS A&OX3-4, VERY ANXIOUS AT TIMES AND YELLS/MOANS. SHE CONTINUES TO ASK FOR WATER. FAILED SWALLOW EVAL. AFIB ON MONITOR WITH RATE IN 90S-120S. SBP 120S. PUREWICK IN PLACE WITH 600ML OUTPUT. CLINICAL SITTER AT BEDSIDE TO PREVENT PT FROM TAKING MASK OFF.
--- NOTE | 2023-09-30 21:17 | NUR ---
ASSUMED CARE ASSUMED CARE AT 1900. PT ALERT AND ABLE TO STATE HER NAME. UNABLE TO STATE WHERE SHE IS AT OR CURRENT SITUATION. FOLLOWS DIRECTIONS AT TIMES. MOVES ALL EXTREMITIES. VSS. HR 100'S. CARDIZEM, AND PRECEDEX GTT INFUSING. SEE FLOWSHEET FOR TITRATIONS. NS AT 50ML/HR. PT ATTEMPTING TO PULL OFF BIPAP AT TIMES. VERY ANXIOUS AND WILL YELL OUT. THERAPEUTIC COMMUNICATION CALMS PT. SITTER AT BEDSIDE. PUREWICK IN PLACE. CALL LIGHT IN REACH.
[2023-10-01] VITALS (77 sets, daily range): BP systolic 113–179; BP diastolic 69–146
[2023-10-01 04:14] LABS: BASOPHILS ABSOLUTE AUTO 0.02 K/mm3 (0.00-0.23); BASOPHILS PERCENT AUTO 0 % (0-2); EOSINOPHILS PERCENT AUTO 0 % (0-6); Hematocrit 29.6 % (33.0-51.0); Hemoglobin 9.3 g/dL (11.5-16.0); IMMATURE GRAN ABSOLUTE AUTO 0.23 K/mm3 (0.00-0.10); IMMATURE GRAN PERCENT AUTO 2 % (0-1); LYMPHOCYTES ABSOLUTE AUTO 0.91 K/mm3 (0.84-5.20); LYMPHOCYTES PERCENT AUTO 6 % (21-46); MONOCYTES ABSOLUTE AUTO 0.55 K/mm3 (0.16-1.47); MONOCYTES PERCENT AUTO 4 % (4-13); Mean Corpuscular HGB 29.2 pg (26.0-34.0); Mean Corpuscular HGB Conc 31.4 g/dL (31.5-36.5); Mean Corpuscular Volume 93 fL (80-100); Mean Platelet Volume 8.8 fL (9.1-12.4); NEUTROPHILS ABSOLUTE AUTO 13.27 K/mm3 (1.96-9.15); NEUTROPHILS PERCENT AUTO 89 % (41-73); Platelet Count 555 K/mm3 (150-400); RDW Coefficient Variation 12.8 % (11.7-14.2); RDW Standard Deviation 43.2 fL (35.1-46.3); Red Blood Cell Count 3.18 M/mm3 (3.80-5.20); White Blood Cell Count 14.98 K/mm3 (4.00-11.30)
[2023-10-01 04:33] LABS: Bun/Creatinine Ratio 37.2 (12.0-20.0); Calcium, Blood 9.1 mg/dL (8.5-10.1); Creatinine, Blood 0.7 mg/dL (0.40-1.00); Potassium, Blood 4.8 mmol/L (3.5-5.5)
--- NOTE | 2023-10-01 05:42 | NUR ---
SHIFT SUMMARY NO ACUTE EVENTS T/O NIGHT. PT HAD MULTIPLE EPISODES OF ANXIETY, INCREASED HR/BP, AND PULLING OFF BIPAP. PRECEDEX GTT INFUSING. CARDIZEM TITRATED TO SB D/T HR IN THE 70'S. VSS. BIPAP SETTINGS NOW 12/6/30%, SPO2 GREATER THEN 92%. PUREWICK IN PLACE. CALL LIGHT IN REACH. WILL REPORT OFF TO ONCOMING RN.
--- NOTE | 2023-10-01 08:30 | NUR ---
ASSUMED CARE / DR PEARL: REPORT RECEIVED FROM CHRIS REDDY. ASSUMED CARE OF THIS PT AT APPROX 0700. ON ASSESSMENT, THE PT IS RESTING QUIETLY AFTER A PERIOD OF INCREASED ANXIETY & AGITATION, REQUIRING PRN MEDS PER EMAR TO CONTROL PAIN & INCREASED HR UP TO 160s. SHE CONTINUES TO ASK FOR WATER & ATTEMPT TO REMOVE OR REPOSITION HER BIPAP MASK FREQUENTLY DESPITE REMINDERS. 1:1 CLINICAL SITTER AT BEDSIDE. LS DIM/ WHEEZING, PT ON BIPAP W/ SETTINGS: 12/6 & 30% FIO2. O2 SATS > 95% ON AVG. MONITOR SHOWS AFIB W/ HR 90-100s, BP STABLE. HTN INCREASED W/ ANXIETY. PT NPO R/T FAILED SPEECH EVAL & ASPIRATION RISK. PUREWICK IN PLACE W/ YELLOW URINE OUTPUT NOTED IN CANISTER. SKIN CONDITION OVERALL INTACT, Q2H REPOSITIONING TO MAINTAIN SKIN INTEGRITY. DR PEARL AT BEDSIDE THIS AM TO EVAL PT. PRN ATIVAN FREQUENCY HAS BEEN INCREASED TO Q4. NO OTHER CHANGES AT THIS TIME. WILL CONTINUE TO MONITOR & UPDATE NEEDED.
--- NOTE | 2023-10-01 17:44 | NUR ---
SHIFT SUMMARY: NO ACUTE CHANGES SINCE PRIOR UPDATES. PT REMAINS A&O TO SELF, FOLLOWS SOME DIRECTIONS. CONFUSED AT BASELINE PER [facility] RN RUBÉN. LS COARSE IN RLL, CLEAR IN UPPERS. PT ON BIPAP W/ SETTINGS: 12/6 & 30% FIO2 W/ O2 SATS > 95% ON AVG. CONTINUES TO HAVE C/O SOB, STATING "I CAN'T BREATHE" W/ ADEQUATE O2 SATS & VENTILATION NOTED WHEN AUSCULTATING LUNG SOUNDS. PT ALSO APPEARS TO BE INCREASINGLY ANXIOUS AT THESE TIMES W/ INCREASED HR & AGITATION, ATTEMPTING TO CLIMB OOB AND/OR REMOVE BIPAP MASK. MONITOR SHOWS AFIB W/ HR 90-160s, INCREASED W/ ANXIETY. CARDIZEM DRIP CURRENTLY AT 10 MG/HR, HAS BEEN ON STANDBY MOST OF THIS SHIFT. PT NPO, FAILED SPEECH EVAL THIS AFTERNOON. PT UNABLE TO CONTROL ANXIETY LONG ENOUGH TO SAFELY SWALLOW MORE THAN ONE SIP OF WATER. WILL COORDINATE W/ ST BILL, TOMORROW TO MEDICATE THE PT APPROPRIATELY PRIOR TO EVAL IN AM. PUREWICK IN PLACE DRAINING YELLOW URINE, CHANGED THIS EVENING W/ CHG BED BATH. SKIN OVERALL INTACT, FRAGILE W/ AREAS OF ECCHYMOSIS NOTED. PROPHYLACTIC COCCYX MEPILEX REMOVED THIS EVENING W/ BATH & SKIN LEFT FRANK. WILL CONTINUE TO MONITOR & REPORT OFF TO ONCOMING RN.
--- NOTE | 2023-10-01 18:49 | NUR ---
Pt not tolerating some care or speech eval. Heart rate up pt precarious. called tiblinhwn. Nursing sent rect polst full treatment. will attemtp contact with sister for care planning.
--- NOTE | 2023-10-01 22:09 | NUR ---
ASSUMED CARE ASSUMED CARE AT 1900. PT ABLE TO STATE LAST NAME AND THAT SHE IS IN THE HOSPITAL. FOLLOWS COMMANDS AT TIMES. ANXIOUS, CALLING OUT, AND TRYING TO TAKE BIPAP OFF. CLINICAL SITTER AT BEDSIDE. HR UP TO 160'S. AFIB. DILT GTT TITRATED UP. HTN. PT HOLDING ONTO RAILS AND VERY TENSE. WHEN PT ARMS AT SIDE, SBP 140-160'S. OTHER VSS. BIPAP 12/6/30%, RR 16-34. PRECEDEX, AND DILTIAZEM GTT INFUSING. SEE FLOWSHEET FOR TITRATIONS. PUREWICK IN PLACE. CALL LIGHT IN REACH.
[2023-10-02] VITALS (68 sets, daily range): BP systolic 109–193; BP diastolic 66–124
[2023-10-02 03:30] LABS: BASOPHILS ABSOLUTE AUTO 0.01 K/mm3 (0.00-0.23); BASOPHILS PERCENT AUTO 0 % (0-2); EOSINOPHILS PERCENT AUTO 0 % (0-6); Hematocrit 31.5 % (33.0-51.0); Hemoglobin 9.5 g/dL (11.5-16.0); IMMATURE GRAN ABSOLUTE AUTO 0.13 K/mm3 (0.00-0.10); IMMATURE GRAN PERCENT AUTO 1 % (0-1); LYMPHOCYTES ABSOLUTE AUTO 0.85 K/mm3 (0.84-5.20); LYMPHOCYTES PERCENT AUTO 6 % (21-46); MONOCYTES ABSOLUTE AUTO 0.39 K/mm3 (0.16-1.47); MONOCYTES PERCENT AUTO 3 % (4-13); Mean Corpuscular HGB 28.8 pg (26.0-34.0); Mean Corpuscular HGB Conc 30.2 g/dL (31.5-36.5); Mean Corpuscular Volume 96 fL (80-100); Mean Platelet Volume 8.9 fL (9.1-12.4); NEUTROPHILS ABSOLUTE AUTO 12.66 K/mm3 (1.96-9.15); NEUTROPHILS PERCENT AUTO 90 % (41-73); Platelet Count 579 K/mm3 (150-400); RDW Coefficient Variation 12.8 % (11.7-14.2); RDW Standard Deviation 44.9 fL (35.1-46.3); White Blood Cell Count 14.04 K/mm3 (4.00-11.30)
[2023-10-02 03:54] LABS: Albumin, Blood 2.4 g/dL (3.4-5.0); Anion Gap 2 mmol/L (6-16); Blood Urea Nitrogen 27 mg/dL (8-24); Bun/Creatinine Ratio 43.8 (12.0-20.0); CO2, Blood 31 mmol/L (21-32); Calcium, Blood 9.3 mg/dL (8.5-10.1); Chloride, Blood 109 mmol/L (98-108); Creatinine, Blood 0.62 mg/dL (0.40-1.00); Glomerular Filtration Rate 98 (60-); Glucose, Blood 203 mg/dL (70-99); Phosphorus, Blood 3.7 mg/dL (2.5-4.9); Potassium, Blood 4.7 mmol/L (3.5-5.5); Sodium, Blood 142 mmol/L (136-145)
--- NOTE | 2023-10-02 05:52 | NUR ---
SHIFT SUMMARY NO ACUTE EVENTS T/O NIGHT. PT ABLE TO SLEEP SOUNDLY APPROX 6 HOURS. CONFUSED AT TIMES AND FORGETFUL. BIPAP SETTINGS NOW 14/6/30% D/T PT PULLING LOW TV APPROX 0030. PT PLEASANT THIS MORNING, SAYING GOOD MORNING BUT C/O PAIN "EVERYWHERE" AND WANTING WATER. MEDICATED PER EMAR AND ORAL CARE DONE. VSS. PRECEDEX GTT INFUSING. CARDIZEM ON SB. HR/BP INCREASED WITH ANXIETY. PUREWICK IN PLACE AND CHANGED OUT THIS SHIFT. WILL REPORT OFF TO ONCOMING RN.
--- NOTE | 2023-10-02 07:40 | NUR ---
ASSUMED CARE: REPORT RECEIVED FROM CHRIS REDDY. ASSUMED CARE OF THIS PT AT APPROX 0700. ON ASSESSMENT, THE PT IS RESTING QUIETLY. SHE APPEARS IN NO DISTRESS. AWAKENS W/ CONTINUED VERBAL STIMULI & IS ORIENTED TO SELF & FOLLOWING SOME DIRECTIONS PRIOR TO CLOSING HER EYES AGAIN. LS ARE WHEEZING IN UPPER LOBES, RLL COARSE. PT ON BIPAP W/ SETTINGS: 14/6 & 30% FIO2, O2 SATS > 95%. MONITOR SHOWS AFIB W/ HR 90-110s, BP CURRENTLY STABLE. HTN INCREASED W/ ANXIETY/ AGITATION. CARDIZEM DRIP INFUSING AT 5 MG/HR. PT NPO R/T FAILED SPEECH THERAPY EVAL, PLAN TO REEVALUATE PT THIS AM. PUREWICK IN PLACE W/ DARK YELLOW URINE NOTED IN CANISTER. SKIN CONDITION OVERALL INTACT, FRAGILE. SOME SMALL AREAS OF ECCHYMOSIS NOTED T/O BUE. Q2H REPOSITIONING TO MAINTAIN SKIN INTEGRITY. WILL CONTINUE TO MONITOR & UPDATE NEEDED.
--- NOTE | 2023-10-02 17:46 | NUR ---
SHIFT SUMMARY: NO ACUTE CHANGES SINCE PRIOR UPDATES. PT REMAINS INTERMITTENTLY A&O TO SELF & FOLLOWING COMMANDS. SHE IS MORE READILY ABLE TO VERBALIZE HER NEEDS THIS SHIFT & SPEAKING CLEARER, ALTHOUGH DOES STILL MUMBLE & CALL OUT AT TIMES. 1:1 SITTER REMAINS AT BEDSIDE FOR IMPULSIVITY & PULLING AT LINES/ BIPAP. PRECEDEX INFUSING AT 0.5 MCG/KG/HR. LS ARE COARSE, WHEEZING AT TIMES, DIM IN BASES. PT ALTERNATING BETWEEN BIPAP W/ SETTINGS: 14/6 & 30% FIO2 & AIRVO W/ SETTINGS: 50 L/MIN & 30% FIO2. SHE HAS TOLERATED THIS WELL W/ O2 SATS > 95% ON AVG. OCCASIONAL MOIST, HACKING COUGH W/ NO SPUTUM EXPECTORATED OR VISUALIZED. MONITOR SHOWS AFIB W/ HR 80-100s, BP STABLE. HTN NOTED W/ INCREASING ANXIETY. CARDIZEM DRIP CURRENTLY ON STANDBY. PT HAS NO GI COMPLAINTS THIS EVENING & IS TOLERATING SMALL AMNTS OF PO INTAKE W/ SPEECH THERAPY SWALLOW PRECAUTIONS IN PLACE. NO BM THIS SHIFT. PUREWICK IN PLACE W/ DARK YELLOW URINE NOTED IN SUCTION CANISTER, CHANGED AT APPROX 1630 THIS EVENING. SKIN CONDITION OVERALL INTACT, ECCYMOSIS SCATTERED TO BUE. Q2H REPOSITIONING TO MAINTAIN SKIN INTEGRITY ATTEMPTED THIS SHIFT BUT SOMEWHAT LIMITED R/T PT's READJUSTING SELF OFF PLACED PILLOWS WHEN ANXIOUS. WILL CONTINUE TO MONITOR & REPORT OFF TO ONCOMING RN.
--- NOTE | 2023-10-02 19:04 | NUR ---
ASSUMED CARE OF PT AT 1900. REPORT RECEIVED AT BEDSIDE. PT PRESENTS IN BED. AWAKENS TO VERBAL STIMULI. MAKES GOOD EYE CONTACT. AIRVO 50 LITERS/30 PERCENT FIO2. PT MAINTAINS SATURATIONS > 90 PERCENT. NO COMPLAINTS VOICED BY PATIENT AT THIS TIME. WILL REVIEW CHART AND PLAN OF CARE FOR THIS PT.
--- NOTE | 2023-10-02 19:51 | NUR ---
PT BECOMES VERY ANXIOUS AND ATTEMPTS TO GET OUT OF BED. STATES, "I CAN'T BREATHE!" MAINTAINS SATURATIONS > 90 PERCENT. "I WANT MEDICINE." HEART RATE ELEVATED TO HIGH 170'S WITH INCREASE ANXIETY. DID GET PT TO DO HER OWN ORAL CARE. PT REPOSITIONED IN BED. WANTS TO HAVE FAN WHICH IS BEING UTILIZED. HAVE RESTARTED CARDIAZEM AT 5 MG PER HOUR. WILL TITRATE NEEDED TO MAINTAIN HEART RATE NEAR 100,
--- NOTE | 2023-10-02 20:40 | NUR ---
PT'S ANXIETY INCREASES. IS ABLE TO TAKE HER PO ZYPREXA THIS EVENING. PT STARTING TO CALM SOME. CARDIAZEM HAS BEEN INCREASED TO 10 MG'S/HR FOR HEART RATE 130-140'S. PENDING RESULTS. DOES TAKE HER PO METOPROLOL. PENDING IMPROVEMENT TO HER HEART RATE AND BLOOD PRESSURE. WILL USE PRN ANTIHYPERTENSIVES NEEDED IF PO METOPROLOL INNEFECTIVE. PUREWICK IN PLACE. YELLOW URINE OUTPUT. PROVIDING RN 1:1 FOR SITTER TO TAKE A BREAK. WILL CONTINUE TO CLOSELY MONITOR PT.
--- NOTE | 2023-10-02 20:52 | NUR ---
HAVE INCREASED PT'S PRECEDEX UP TO 0.7 MCG'S/KG/HOUR. CARDIZEM UP TO 15 MG/HOUR. PT CONTINUES TO REPEAT, "PLEASE HELP ME," AND "I CAN'T BREATHE". PT BECOMING MUCH MORE CALM. BLOOD PRESSURES AND HEART RATE RESPOND TO TREATMENT, WILL TITRATE PRECEDEX AND CARDIZEM ACCORDINGLY.
--- NOTE | 2023-10-02 21:11 | NUR ---
PT'S HEART RATE MAINTAINS > 130 WITH CARDIZEM AT 15 MG/HOUR. ADMINISTERED 5 MG METOPROLOL PER IV TO BRING HEART RATE BACK INTO CONTROL. PT'S BLOOD PRESSURES ALSO HAVE REMAINED ELEVATED EVEN WITH INTERVENTIONS. WILL CONTINUE TO MONITOR. PT FREQUENTLY ASKING FOR WATER. WHEN HAVING PT TAKE A DRINK, SHE COUGHS WITH SWALLOW. PT INFORMED THAT WILL HOLD OFF FROM WATER. THEN PT REQUESTS A "PEPSI" NEEDED TO DO TEACHING AGAIN WITH PT.
--- NOTE | 2023-10-02 21:39 | NUR ---
ONE TIME ORDER OBTAINED FOR PT'S CONSISTENT ANXIETY WITH VERY ELEVATED BLOOD PRESSURES AND HEART RATE. 1 MG ATIVAN ADMINISTERED. SEE VS FLOWSHEET FOR IMPROVEMENTS. PT ABLE TO DOSE OFF FOR AROUND 5 - 10 MINUTES BEFORE AWAKENING AND REPEATING THAT SHE WANTS WATER.
--- NOTE | 2023-10-02 23:02 | NUR ---
BLOOD PRESSURES AND HEART RATE IMPROVING ONCE PT BACK TO BIPAP MASK. CURRENTLY AT 14/6 FIO2 30 PERCENT. PT NEEDS TO BE REMINDED NOT TO PULL AT HER MASK. PRECEDEX CONTINUES AT 0.7 MCG'S/KG/HOUR. HAVE DECREASED CARDIZEM DRIP TO 10 MG/HOUR. WILL CONSIDER FURTHER TITRATION WITH HEART RATE CURRENTLY AT 81. REMAINS IN AFIB.
[2023-10-03] VITALS (80 sets, daily range): BP systolic 101–181; BP diastolic 62–120
--- NOTE | 2023-10-03 | NUR ---
FENTANYL 25 MCG'S ADMINISTERED WITH GOOD RELIEF.
--- NOTE | 2023-10-03 04:38 | NUR ---
CARDIZEM CONTINUES ON STANDBY. HEART RATE REMAINS UNDER 100 BPM. PRECEDEX AT 0.5 MCG'S/KG/HOUR. PT HAS REMAINED CALM. SITTER REMAINS AT BEDSIDE. PT HAS NOT PULLED AT HER BIPAP MASK FREQUENTLY. WILL CONTINUE TO MONITOR PT.
[2023-10-03 05:42] LABS: Albumin, Blood 2.3 g/dL (3.4-5.0); Anion Gap 0 mmol/L (6-16); Blood Urea Nitrogen 26 mg/dL (8-24); Bun/Creatinine Ratio 41.1 (12.0-20.0); CO2, Blood 33 mmol/L (21-32); Calcium, Blood 9.2 mg/dL (8.5-10.1); Chloride, Blood 111 mmol/L (98-108); Creatinine, Blood 0.63 mg/dL (0.40-1.00); Glomerular Filtration Rate 97 (60-); Glucose, Blood 193 mg/dL (70-99); Phosphorus, Blood 3.9 mg/dL (2.5-4.9); Potassium, Blood 4.7 mmol/L (3.5-5.5); Sodium, Blood 144 mmol/L (136-145)
[2023-10-03] MEDS ORDERED: DULCOLAX400 MG/51 PO (06:35)
[2023-10-03] MEDS ORDERED: ONDA4 PO (06:36)
--- NOTE | 2023-10-03 11:23 | NUR ---
ASSUMED CARE CARE WAS ASSUMED OF PT AT 1900, REPORT GIVEN BY JULIUS PEREZ. PT A/O X3, PT SLEEPING DURING BEDSIDE SHIFT REPORT. PT ABLE TO MAKE NEEDS KNOWN AND ASK APPROPRIATE QUESTIONS. AT SHIFT CHANGE PRECEDEX GTT INFUSING, SEE FLOWSHEET. 1:1 CLINICAL SITTER AT BEDSIDE. PT ON BIPAP AT SHIFT CHANGE, PT IS NOW ON 4 L N/C AND TOLERATING WELL. O2 SATS > 95%. SBP HYPERTENSIVE, PT RECIEVED SCHEDULED PO MEDS, SEE EMAR. CARDIAC MONITORING REFLECTS AFIB, HR 100s-110s. NS TKO INFUSING THROUGH PG. PUREWICK IN PLACE, YELLOW URINE NOTED IN CANISTER.
--- NOTE | 2023-10-03 11:32 | NUR ---
Spoke with pt's sister Kellen last evening and again this morning via telephone. Yesterday when we spoke the pt remained on bipap continuously. This moring the pt is tolerating being off bipap, currently on 4L oxygen via n/c. She is calling out, "Help, help" when she is awake, but eyes remain closed, and resp are even and unlabored. When bedside RN responds, the pt is able to carry on brief conversation and pt denies needing help. When the nurse leaves the bedside, the pt begins calling out, "help" once again. There is a sitter at the bedside. Pt's sister Kellen is requesting pt remain full code at this time, and is the pt's POA. Kellen reports a nurse had mentioned that Pat had stated she wanted to be intubated if it was needed. Palliative Care will remain available, and will continue giving updates to the family.
--- NOTE | 2023-10-03 12:27 | NUR ---
Received a follow up call from pt's sister Kellen who expresses her decision to make pt's code status "Limited". She does not wish for CPR to be performed on the pt, and only wants the intervention of intubation if needed. Received order for limited code-No CPR and placed in pt's chart. Bedside RN informed.
--- NOTE | 2023-10-03 12:42 | NUR ---
Changed code status: LTD to include both Intubation and Medication per v.o. from Dr. Humphreys.
--- NOTE | 2023-10-03 18:39 | NUR ---
SHIFT SUMMARY PT REMAINS A/O X 2-3. PT HAS SLEPT FOR THE MAJORITY OF THE SHIFT WITH ONLY ONE INSTANCE OF ANXIETY THIS SHIFT. PT MEDICATED FOR PAIN THIS SHIFT. PRECEDEX ON SB SINCE THIS MORNING. PT HAS REMAINED MOSTLY ON 4 L N/C THIS SHIFT, TOLERATING WELL. O2 SATS > 95%. PT SWITCHED TO BIPAP WHEN NEEDED. BP STABLE, SBP 120s AT THIS TIME. HR 110s. 1:1 SITTER REMAINS AT BEDSIDE. PUREWICK IN PLACE. NS TKO INFUSING THROUGH PG.
--- NOTE | 2023-10-03 19:16 | NUR ---
ASSUMED CARE OF PT AT 1900. REPORT RECEIVED AT BEDSIDE. PT DID SLEEP THROUGHOUT THE REPORT. SECONDARY TO PT'S ANXIETY ISSUES AND OXYGENATION DEMANDS DURING ANXIOUS EPISODES, OPTED TO ALLOW PT TO REST. WILL REVIEW CHART AND PLAN OF CARE FOR THIS PT.
--- NOTE | 2023-10-03 23:13 | NUR ---
PT WAS ABLE TO SWALLOW HER MEDICATIONS ONE AT A TIME WITH WATER. DID DO COACHING ON SAFE SWALLOW TECHNIQUE - CHIN TUCK WITH SWALLOW. PT DOES SOME OF THE CHIN TUCK WITH SWALLOW. NO COUGHING WITH SWALLOW. DOES BELCH AFTER SWALLOW. MEDICATED PT WITH 1 5/235MG NORCO. PT STATES HER PAIN IS 10/10 AND LIKENS PAIN TO CHILDBIRTH. DOES HOLD CONVERSATION WITHOUT GRIMACE OR MOAN. PT CURRENTLY SLEEPING IN BED. WITH CONVERSATION, PT WOULD REPEAT "CAN I HAVE A DRINK OF WATER?" WHEN REFOCUSSING PT ON A CONVERSATION, PT DID CALL AND HOLD CONVERSATION WITHOUT COMPLAINTS. PT'S DAUGHTER RAYMUNDO CALLS TO CHECK ON PT. VERBAL PERMISSION GIVEN BY PT TO GIVE HER UPDATE. THIS DONE. ALLOWED FOR QUESTIONS. WILL CONTINUE TO MONITOR PT. 1:1 SITTER REMAINS IN ROOM FOR PT SAFETY.
[2023-10-04] VITALS (19 sets, daily range): BP systolic 79–177; BP diastolic 47–100
--- NOTE | 2023-10-04 00:42 | NUR ---
VSS AT THIS TIME. DOES HAVE 110'S FOR HEART RATE. CONTINUES IN A-FIB. PUREWICK IN PLACE WITH GOOD URINE OUTPUT. PT TOLERATING Q 2 HOUR TURNS IN BED. IN PROCESS OF BREATHING TREATMENT. WILL CONTINUE TO MONITOR. CONTINUING WITH 1:1 SITTER FOR PT SAFETY.
[2023-10-04 04:39] LABS: Albumin, Blood 2.5 g/dL (3.4-5.0); Anion Gap 2 mmol/L (6-16); Blood Urea Nitrogen 38 mg/dL (8-24); Bun/Creatinine Ratio 42.7 (12.0-20.0); CO2, Blood 34 mmol/L (21-32); Calcium, Blood 9.3 mg/dL (8.5-10.1); Chloride, Blood 105 mmol/L (98-108); Creatinine, Blood 0.89 mg/dL (0.40-1.00); Glomerular Filtration Rate 71 (60-); Glucose, Blood 189 mg/dL (70-99); Phosphorus, Blood 4.3 mg/dL (2.5-4.9); Potassium, Blood 5.1 mmol/L (3.5-5.5); Sodium, Blood 141 mmol/L (136-145)
--- NOTE | 2023-10-04 06:47 | NUR ---
PT REQUIRED HAVING CARDIZEM RESTARTED, AND IS CURRENTLY AT 10 MG/HOUR. PT WAS MEDICATED ONCE WITH 0.5 MG ATIVAN FOR INCREASE IN ANXIETY. PT HAS GONE MOST OF SHIFT ON 4 L/M OXYGEN PER NASAL CANNULA. PT DID DESATURATE INTO 70 %'S AND BECAME SOMEWHAT OBTUNDED. DID PLACE PT BACK TO BIPAP MASK. SATURATIONS > 90 PERCENT. 1:1 SITTER HAS BEEN DISCONTINUED. WILL MONITOR PT, AND WILL REPORT OFF TO ONCOMING RN.
--- NOTE | 2023-10-04 12:46 | NUR ---
Pt sitting up in a chair, oxygen in place. She appears to be resting comfortably. After Dr. Humphreys's assessment today, this RN placed call to pt's sister Kellen to discuss pt's plan of care. Kellen and her Zay discussed the idea of comfort care/hospice. Once we reviewed pt's current and ongoing health conditions, they have elected to proceed with comfort care, and return pt to [facility] with hospice. They do not have a preference in hospice agencies, and state they prefer to let [facility] pick the hospice agency if they happen to have a preference.
--- NOTE | 2023-10-04 13:37 | NUR ---
ASSUMED CARE CARE WAS ASSUMED OF PT AT 0700, REPORT GIVEN BY JULIUS PEREZ. PT A/O X2, PT ABLE TO MAKE NEEDS KNOWN. PT ON BIPAP AT SHIFT CHANGE AND WAS TRANSITIONED TO OXIMASK, 1 L. 02 SATS > 92%. CARIDAC MONITORING REFLECTED AFIB, DILTIAZEM GTT INFUSING, SEE FLOWSHEET. BP STABLE. PURE WICK IN PLACE AND DRAINING YELLOW URINE.
--- NOTE | 2023-10-04 16:37 | NUR ---
"Spiritual Care Visit | Nurse request Pt. has recently been made comfort care, and displays evidence of being anxious. As nurse Amada care for the pt. words of encouragement are given with a calming presence. Pt. did verbalize interest in prayer. Prayed with Pt. and continue to encourage the Pt. to breath deeply and relax. After some time Pt. displays evidence of lower anxiety."
--- NOTE | 2023-10-04 17:08 | NUR ---
Daksha at [facility] notified of pt's passing.
--- NOTE | 2023-10-04 17:36 | NUR ---
"Spiritual Care | EOL support - [facility] Pt. had passed and this airport engineer contacted the Pts. sister TRUONG with the notification of . Facilitated care and empathy as well as pastoral care. TRUONG had this airport engineer contact her on their home landline phone. Family confirmed [facility] as there home."
--- NOTE | 2023-10-04 17:43 | NUR ---
PT BECAME INCREASINGLY MORE UNRESPONSIVE T/O SHIFT, MINIMALLY WAKING TO VERBAL STIMULI AND PHYSICAL STIMULI. BINTA, PT'S SISTER, CONTACTED REGARDING PT'S STATUS, SEE NURSE NOTE. PT'S SISTER ELECTED TO HAVE PT'S STATUS CHANGED TO COMFORT CARE. PT STATUS CHANGED AT 1348. PT CONTINUED TO REST QUIETLY UNTIL 1515 AND BECAME INCREASINGLY MORE AGITATED. COMPLAINING OF SOB. LABORED GASPING RESPIRATIONS OBSERVED. MEDICATED PER COMFORT CARE ORDERS. TIME OF 1657.
== END 2023-10-04 16:58 | DRG 871 ==
LOC: ER 00:13 → ICUE 05:51 → PCU 05:51 → ICUE 09-28 16:29
PROVIDERS: Emergency Medicine; Internal Medicine; Internal Medicine Critical Care Medicine; Student in an Organized Health Care Education/Training Program; ADMIT Internal Medicine
PROC: 3E03329 Introduction of Other Anti-infective into Peripheral Vein, Percutaneous Approach (ICD-10-PCS; 2023-09-27)
PROC: 5A09457 Assistance with Respiratory Ventilation, 24-96 Consecutive Hours, Continuous Positive Airway Pressure (ICD-10-PCS; 2023-09-27)
PROC: 4A033R1 Measurement of Arterial Saturation, Peripheral, Percutaneous Approach (ICD-10-PCS; principal; 2023-09-29)
PROC: 5A0935A Assistance with Respiratory Ventilation, Less than 24 Consecutive Hours, High Flow/Velocity Cannula (ICD-10-PCS; 2023-10-02)
DX: A41.9 Sepsis, unspecified organism (principal); G93.41 Metabolic encephalopathy; I50.23 Acute on chronic systolic (congestive) heart failure; J96.21 Acute and chronic respiratory failure with hypoxia; J96.22 Acute and chronic respiratory failure with hypercapnia; J18.9 Pneumonia, unspecified organism; J44.1 Chronic obstructive pulmonary disease with (acute) exacerbation; J44.0 Chronic obstructive pulmonary disease with (acute) lower respiratory infection; I50.32 Chronic diastolic (congestive) heart failure; I48.20 Chronic atrial fibrillation, unspecified; Z51.5 Encounter for palliative care; Z66 Do not resuscitate; F41.9 Anxiety disorder, unspecified; G89.4 Chronic pain syndrome; F03.90 Unspecified dementia, unspecified severity, without behavioral disturbance, psychotic disturbance, mood disturbance, and anxiety; F10.20 Alcohol dependence, uncomplicated; K74.60 Unspecified cirrhosis of liver; I67.9 Cerebrovascular disease, unspecified; E11.42 Type 2 diabetes mellitus with diabetic polyneuropathy; M54.9 Dorsalgia, unspecified; I11.0 Hypertensive heart disease with heart failure; K21.9 Gastro-esophageal reflux disease without esophagitis; F17.210 Nicotine dependence, cigarettes, uncomplicated; E86.0 Dehydration; Z79.899 Other long term (current) drug therapy; Z79.2 Long term (current) use of antibiotics; Z79.4 Long term (current) use of insulin; Z88.1 Allergy status to other antibiotic agents; Z88.8 Allergy status to other drugs, medicaments and biological substances; Z98.1 Arthrodesis status; Z11.52 Encounter for screening for COVID-19; Z91.030 Bee allergy status; Z91.013 Allergy to seafood; Z79.51 Long term (current) use of inhaled steroids; Z79.84 Long term (current) use of oral hypoglycemic drugs
CPT/HCPCS: 0241U; 36415; 36600; 71045; 71260; 74177; 80048; 80053; 80069; 82803; 82947; 83605; 83735; 83880; 84100; 84145; 84443; 84484; 85025; 85379; 85520; 85610; 85730; 87040; 92526; 92610; 93005; 93010; 93306; 94640; 94660; 94664; 94762; 96361; 96365; 96366; 96368; 96375; 99285-25; A9270; C1751; C9113; J0456; J0692; J0696; J0780; J1170; J1630; J1644; J1650; J1815; J1940; J2060; J2270; J2920; J3010; J3370; J3475; J7030; J7050; J7512; Q9967